=== PATIENT | male | born 1945 | race Caucasian/White ===

== ENCOUNTER 2018-04-15 16:28 | Inpatient (IN) | payer MEDICARE ==
[~2018-04-15] VITALS: Ht 170.2 cm; Wt 118.8 kg
[~2018-04-15 16:28] MED LIST: AMARYL4 MG PO; AMLODIPINE BESYL5 MG PO; ANDROGEL2.5 GM TP; ASA81 MG PO; CRESTOR5 MG PO; GLIMEPIRIDE PO; K DUR10 MEQ PO; KETOROLAC TROME10 MG PO; LANTUS100 UNIT/2 SQ; LOSARTAN-HCTZ1 EAC1; LOSARTAN-HCTZ1 EAC3 PO; LOVENOX30 MG/0.3 SC; METOPROLOL SUCC25 MG PO; PRILOSEC OTC20 MG PO; PRILOSEC40 MG PO; ULTRACET TABLE1 EACH PO; ULTRAM50 MG PO; Z.0.LIPITOR20 MG PO; Z.0.PRILOSEC20 MG PO; Z.0.VICTOZA 2-0.6 MG SQ; Z.1.METFORMIN HCL100 PO
[2018-04-15] MEDS ORDERED: IPRATROPIUM BROMIDE 0.02% 2.5 ML NEB NEB STA (16:36)
[2018-04-15] MEDS ORDERED: ALBUTEROL SULF 0.083% NEB SOLN 3 ML NEB NEB STA (16:36)
[2018-04-15] MEDS ORDERED: AZITHROMYCIN 500MG/NS 250 ML 250 ML IV STA (16:36)
[2018-04-15] MEDS ORDERED: CEFTRIAXONE SOD 1 GM VIAL IV ONE (16:45)
[2018-04-15 16:53] LABS: BASOPHILS % 0.3 % (0.0-1.0); EOSINOPHILS % 0.3 % (0.0-6.0); HEMATOCRIT 37.8 % (38.2-49.6); HEMOGLOBIN 12.9 g/dL (14.0-18.0); LYMPHOCYTES % 8.4 % (18.0-39.1); MEAN CORPUSCULAR HEMOGLOBIN 31.9 pg (28-32); MEAN CORPUSCULAR HGB CONC 34.1 g/dL (31-35); MEAN CORPUSCULAR VOLUME 93.3 fL (81-99); MONOCYTES # (AUTO) 0.8 (0.2-0.8); MONOCYTES % 6.9 % (4.4-11.3); NEUTROPHILS # (AUTO) 9.6 (2.1-6.9); NEUTROPHILS % 81.8 % (38.7-80.0); PLATELET COUNT 112 x10e3/uL (140-360); RED BLOOD COUNT 4.05 x10e6/uL (4.3-5.7); RED CELL DISTRIBUTION WIDTH 13.3 % (11.7-14.4)
[2018-04-15] MEDS ORDERED: ACETAMINOPHEN/CODEINE 300MG - 30MG TAB PO ONE (17:00)
[2018-04-15 17:02] LABS: INR 1.36; PROTHROMBIN TIME 15.8 seconds (11.9-14.5)
[2018-04-15 17:03] LABS: PARTIAL THROMBOPLASTIN TIME 41.5 seconds (23.8-35.5)
[2018-04-15 17:09] LABS: ALBUMIN 3.2 g/dL (3.5-5.0); ALBUMIN/GLOBULIN RATIO 0.7 (0.8-2.0); ANION GAP 19.7 mmol/L (8-16); CALCIUM 9.7 mg/dL (8.4-10.2); CREATININE, SERUM 1.76 mg/dL (0.72-1.25); POTASSIUM 3.7 mmol/L (3.5-5.1)
[2018-04-15 17:16] LABS: CREATINE KINASE MB 2.5 ng/mL (0-5.0)
[2018-04-15] MEDS ORDERED: JANUMET XR 50-1 EAC1 (17:47)
[2018-04-15] MEDS ORDERED: GLIMEPIRIDE4 MG (17:47)
[2018-04-15] MEDS ORDERED: OMEPRAZOLE40 MG (17:47)
[2018-04-15] MEDS ORDERED: NITROGLYCERIN0.4 MG (17:47)
--- NOTE | 2018-04-15 18:24 | Diagnostic Imaging Report ---
PROCEDURE: Frontal and lateral views of the chest. COMPARISON: Chest radiograph 04/29/2016 INDICATIONS: COUGH PNEUMONIA FINDINGS: Lines/tubes: None. Lungs: The lungs are well inflated. Patchy bilateral airspace opacities, most prominent in the left lower lobe. Pleura: There is no pleural effusion or pneumothorax. Heart and mediastinum: Aortic calcifications. The heart and the mediastinum are normal. Bones: No acute bony abnormality. Median sternotomy wires. IMPRESSION: Findings concerning for multifocal pneumonia. Dictated by: Boni Gupta M.D. on 04/15/2018 at 18:30 Electronically approved by: Boni Gupta M.D. on 04/15/2018 at 18:30
[2018-04-15] MEDS ORDERED: CEFTRIAXONE SOD 1 GM VIAL IV SCH (18:30)
[2018-04-15] MEDS ORDERED: AZITHROMYCIN 500MG/NS 250 ML 250 ML IV SCH (18:30)
[2018-04-15 18:36] LABS: LYMPHOCYTES % (MANUAL) 7 % (19-48); MONOCYTES % (MANUAL) 11 % (3.4-9.0); NEUTROPHILS % (MANUAL) 81 % (40-74); PLATELET ESTIMATE SLIGHTLY DECREASED; PLATELET MORPHOLOGY COMMENT NORMAL; RBC MORPHOLOGY COMMENT NORMAL
[2018-04-15] MEDS: GUAIFENESIN 200 MG/10 ML UDC PO PRN (22:30)
[2018-04-16] VITALS (8 sets, daily range): BP systolic 97–131; BP diastolic 43–69
[2018-04-16] MEDS ORDERED: NORCO 10-325 T1 EACH (07:50)
[2018-04-16] MEDS: GUAIFENESIN 200 MG/10 ML UDC PO PRN (08:02)
[2018-04-16] MEDS: ASPIRIN 81 MG ENTERIC COATED PO SCH (08:39)
[2018-04-16] MEDS: LOSARTAN POTASSIUM 100 MG TAB PO SCH (08:40)
[2018-04-16] MEDS: PANTOPRAZOLE SOD 40 MG TABEC PO SCH (08:40)
[2018-04-16] MEDS: AMLODIPINE BESYLATE 5 MG TAB PO SCH (09:00)
[2018-04-16] MEDS ORDERED: LEVALBUTEROL HCL SOLN NEBU 1.25 MG/3 ML NEB INH PRN (09:00)
[2018-04-16] MEDS ORDERED: SITAGLIPTIN 100 MG TAB PO SCH (09:00)
[2018-04-16] MEDS: METOPROLOL SUCCINATE 25 MG TAB XL PO SCH ×2 (09:00→16:32)
[2018-04-16] MEDS ORDERED: METHYLPREDNISOLONE SOD SUCC 40 MG/ML VIAL IV SCH ×2 (09:00→21:00)
[2018-04-16] MEDS ORDERED: METOPROLOL SUCCINATE 25 MG TAB XL PO SCH (09:00)
[2018-04-16] MEDS ORDERED: DEXTROSE 50% SYRINGE 50 ML IV PRN (09:00)
[2018-04-16] MEDS ORDERED: BENZONATATE 100 MG CAP PO PRN (09:00)
--- NOTE | 2018-04-16 09:41 | History and Physical ---
PCP: Dr. Kelly Baker CHIEF COMPLAINT: Multifocal pneumonia. HISTORY: A 72-year-old male has been having coughing and increasing shortness of breath for the past week. He failed outpatient treatment. He came in to see Dr. Baker and subsequently placed in the hospital for treatment. He did have a fever. The patient is also having wheezing. He is an ex-smoker. The patient is hypoxic. Oxygen has been given. The patient is admitted for further treatment. PAST MEDICAL HISTORY: Coronary disease with previous bypass surgery times 2 vessels in 1989 and then another 2 vessels in 2000, right shoulder repair, osteoarthritis, obesity, diabetes, type 2, hypertension, and dyslipidemia. PAST SURGICAL HISTORY: As above. SOCIAL HISTORY: The patient is an ex-smoker. He does not drink alcohol. No recreational drugs. ALLERGIES: NO KNOWN ALLERGIES. HOME MEDICATIONS: Norvasc, aspirin, Amaryl, Casper, losartan, hydrochlorothiazide, metoprolol succinate, nitroglycerin, omeprazole, Janumet, testosterone gel. REVIEW OF SYSTEMS: Cough, fever, shortness of breath, wheezing, and hypoxia. PHYSICAL EXAMINATION VITAL SIGNS: Temperature is 100.9, blood pressure 115/69, pulse rate is 115, pulse ox is 75% on room air. GENERAL: The patient is not in acute distress. He is awake. HEENT: Normocephalic, atraumatic and anicteric. NECK: Supple grossly. PULMONARY: Bilateral coarses and rhonchi with diminished breath sounds bilaterally. CARDIOVASCULAR: S1 and S2. Tachycardia. ABDOMEN: Soft and morbidly obese. EXTREMITIES: No cyanosis or edema. NEUROLOGIC: No gross focal deficit. LABORATORY: WBC is 12, hemoglobin 13, hematocrit 38, and platelets 112,000. Chemistry: Sodium 137, potassium 3.7, chloride 100, bicarb 21, BUN 41, creatinine 1.7, glucose is 89. Cardiac enzymes unremarkable. Coagulation is INR is 1.36. Chest x-ray showed multifocal pneumonia. IMPRESSION 1. Sepsis with fever. 2. Multifocal pneumonia. 3. Hypoxia. 4. Leukocytosis. 5. Multifocal pneumonia. 6. Possible acute exacerbation of chronic obstructive pulmonary disease. 7. Hypoxia. 8. Diabetes, type 2. 9. Hypertension. PLAN: Continue with IV antibiotics of azithromycin and Zosyn. Consultation with Dr. Avalos, the patient's radio interference expert. DVT prophylaxis. Home medications. Insulin sliding scale coverage. Steroids for the wheezing. Resume some home medications. Watch blood sugar. Antiemetic and antitussive medications. Will monitor the patient closely. Job#: [id number] ZHANNA
[2018-04-16] MEDS: GLIPIZIDE 5 MG TAB ER PO SCH (10:11)
[2018-04-16] MEDS: BENZONATATE 100 MG CAP PO SCH ×3 (10:11→21:00)
[2018-04-16] MEDS: PIPER-TAZ 3.375 GM 50 ML IV SCH ×4 (10:11→23:47)
[2018-04-16] MEDS: INSULIN LISPRO 100 UNIT/1 ML 3ML VIAL SQ SCH ×3 (11:30→20:30)
[2018-04-16] MEDS: ALBUTEROL/IPRATROPIUM 3 ML NEB NEB SCH ×4 (11:55→22:50)
[2018-04-16] MEDS ORDERED: HYDROCODONE/APAP 10MG-325MG TAB PO PRN (12:00)
[2018-04-16] MEDS ORDERED: HYDROCODONE/APAP 10MG-325MG TAB PO SCH (12:00)
[2018-04-16] MEDS ORDERED: ALBUTEROL/IPRATROPIUM 3 ML NEB NEB SCH (13:00)
--- NOTE | 2018-04-16 14:18 | Diagnostic Imaging Report ---
PROCEDURE: CT CHEST WITHOUT CONTRAST CT scan of the chest WITHOUT intravenous contrast, using standard protocol. TECHNIQUE: The chest was scanned utilizing a multidetector helical scanner from the apex to the level of the adrenal glands. No IV contrast was administered per physician's request.). Coronal and sagittal multiplanar reformations were obtained. COMPARISON: [facility], CT, CTA ABDOMEN, 08/11/2012, 15:52. [facility], DX, CHEST 2 VIEWS, 04/15/2018, 17:19. [facility], CT, CTA CHEST, 08/11/2012, 15:52. INDICATIONS: SOB, PNEUMONIA 1 WEEK FINDINGS: Lines/tubes: None. Lungs and Airways: Patchy groundglass opacities in the lateral left upper lobe (series 3, image 24), superior segment of the left lower lobe (series 3, image 36), posterior left lower lobe (series 3, image 41), superior segment of the right lower lobe (series 3, image 38), and posterior right lower lobe (series 3, image 47). The opacities in the lower lobes are associated with mild bronchiectasis. 7-8mm subpleural nodular density is somewhat wedge-shaped, and likely reflects focal atelectasis (coronal image 63 and series 3, image 43). No pulmonary nodules, masses, or consolidation. Airways are clear, without endobronchial lesions. Calcified granuloma in the anterior right upper lobe (series 3, image 15), disease. Pleura: No effusion, or pneumothorax. Calcified pleural plaques in the posterior and posteromedial left lung (series 2, images 30 and 31). Heart and mediastinum: Thyroid is unremarkable. Heart size is normal. No pericardial effusion. Atherosclerotic calcification of the coronary arteries and thoracic aorta. Aorta is non-aneurysmal. Main pulmonary artery is normal in caliber, measuring approximately 2.5 cm. Lymph nodes: No mediastinal or axillary adenopathy. Difficult to assess for hilar adenopathy given the lack of intravenous contrast. Abdomen: Limited nonenhanced views of the upper abdomen show no abnormality within the visualized pancreas, or adrenal glands. Subtle nodularity of the hepatic contour. Stable splenomegaly, which measures approximately 16.4 cm in AP diameter. Diffuse hepatic steatosis. Bones: No acute bony abnormalities. No aggressive lytic lesions. Degenerative disc changes in the thoracic spine. Midline sternotomy wires. Mild bilateral gynecomastia. IMPRESSION: 1. Findings in bilateral lungs may represent multifocal pneumonia, in the appropriate clinical setting. However, the presence of bronchiectatic changes associated to the groundglass opacities in bilateral lower lobes may reflect a component of fibrosis/interstitial lung disease. Recommend evaluation with CT chest with interstitial lung disease protocol in 6-8 weeks after completion of treatment. 2. Calcified pleural plaques, consistent with prior asbestos exposure. 3. Subtle nodularity of the hepatic contour suggestive of cirrhosis. Diffuse hepatic steatosis. 4. Stable splenomegaly. Enzo Masters M.D. Dictated by: Enzo Masters M.D. on 04/16/2018 at 14:23 Electronically approved by: Enzo Masters M.D. on 04/16/2018 at 14:23
--- NOTE | 2018-04-16 14:42 | Consultation ---
DATE OF CONSULTATION: April 16, 2018 PULMONARY CONSULTATION REQUESTING PHYSICIAN: Dr. Homer Mcfadden REASON FOR CONSULTATION: Pneumonia and sleep apnea. HISTORY OF PRESENT ILLNESS: Mr. Watters is a 72-year-old man with history of hypertension, diabetes, coronary artery disease status post CABG, obstructive sleep apnea, previous history of tobacco abuse, who presented to the hospital with complaint of fever, shortness of breath and cough. He states that his symptoms began one week ago and have been gradually worsening. He did not have fever initially but developed fever a few days ago. The cough was originally nonproductive but is now productive of dark yellow sputum. He is having chills as well as shortness of breath and wheezing. He denies any leg swelling, denies any chest pain. He does not use any inhalers at home on a regular basis but had been using his 's Breo recently without improvement. He sees my colleague, Dr. Avalos, for obstructive sleep apnea and uses CPAP with nasal mask at home. He reports using the CPAP every night and tolerating it very well. He does not use oxygen at home. He was seen in the emergency department here where he was found to be borderline febrile as well as tachypneic and hypoxic. He was placed on nasal cannula originally up to 10 liters but is now at 6 liters. He was given a dose of ceftriaxone and started on Zosyn and Azithromycin for treatment of pneumonia. The patient denies any hospitalizations for many years with the last being in the when he had knee surgery. He denies any previous episodes of severe pneumonia. REVIEW OF SYSTEMS: Review of systems positive for cough, sputum production, shortness of breath, fever, chills, decreased appetite. Denies rashes, bruises. Denies leg swelling. Denies abdominal pain, nausea or vomiting. Denies chest pain. Denies headaches. Denies weight loss. Denies numbness or tingling. Otherwise a 12-point review of systems was conducted and was found to be negative. PAST MEDICAL HISTORY 1. Hypertension. 2. Diabetes on oral medications. 3. Obstructive sleep apnea. 4. Coronary artery disease. 5. Gastroesophageal reflux. PAST SURGICAL HISTORY 1. Carotid endarterectomy. 2. Lumbar spine surgery. 3. Knee arthroscopy. 4. Coronary artery bypass surgery. SOCIAL HISTORY: He reports history of smoking in the distant past. Quit in the . He smoked up to 3 packs of cigarettes daily for about 24 years. FAMILY HISTORY: There is history of heart disease in his father. Diabetes in his grandmother. Denies family history of lung disease. ALLERGIES: NO KNOWN DRUG ALLERGIES. MEDICATIONS: Current medications include albuterol-ipratropium, Tessalon, glipizide, Solu-Medrol, pantoprazole, aspirin, guaifenesin, Zosyn, metoprolol, losartan, amlodipine, Lovenox, Januvia, azithromycin. PHYSICAL EXAMINATION VITAL SIGNS: Temperature 100.0 degrees Fahrenheit, heart rate 70, respiratory rate 20, oxygen saturation 98% on 6 liters nasal cannula. GENERAL: The patient is lying in bed, appears comfortable, not in acute distress. He is coughing occasionally. EYES: Sclerae anicteric. Conjunctiva pink. ENT: No oral lesions. Oral mucosa is moist. NECK: Supple. No cervical lymphadenopathy. No JVD. CHEST: He has rhonchi heard bilaterally with slight expiratory wheezing. Work of breathing is normal. HEART: Regular rate and rhythm. S1, S2. No murmurs. ABDOMEN: Soft, protuberant. Nontender to palpation. Bowel sounds normoactive. EXTREMITIES: No edema, no cyanosis, no clubbing. SKIN: No rashes, no bruises. NEUROLOGIC: Pupils equally round and reactive to light. No facial droop. No nystagmus. LABORATORY STUDIES: Sodium is 137, potassium 3.7, chloride 100, bicarbonate 21, BUN 41, creatinine 1.76. Bilirubin 1.8, glucose 89, AST 33, ALT 28, alkaline phosphatase 113, CK 271, CK-MB 2.5. Troponin I is 0.29. Albumin 3.2. Globulin 4.6. White count 11.6, hemoglobin 12.9, platelets 112. PT 15.8, INR 1.36, PTT 41.5. IMAGING: He has a chest x-ray showing patchy opacities bilaterally, most in the left lower lung field. A sputum gram stain shows moderate white blood cells, few gram positive cocci and pairs and chains and rare gram negative bacilli. IMPRESSION: Mr. Watters is a 72-year-old man with history of hypertension, diabetes, obstructive sleep apnea, coronary artery disease, morbid obesity, gastroesophageal reflux who presented to the hospital with community-acquired pneumonia with acute hypoxemic respiratory failure. He has acute kidney injury versus chronic kidney disease as I do not have any previous creatinine. He has a mild anion gap metabolic acidosis and mild thrombocytopenia. His oxygenation appears to be stable on the relatively high amount of oxygen by nasal cannula. PLAN 1. The patient is receiving Zosyn and azithromycin empirically for pneumonia. Blood cultures and sputum culture have been sent and depending on the results of cultures, we can look at de-escalating his antibiotics over the next 1 to 2 days. He comes from the community so his risk of healthcare-associated organisms is on the low side. I will ask for streptococcal urine antigen to be sent as well as Legionella urine antigen. 2. We will continue with oxygen by nasal cannula and wean as possible to maintain oxygen saturation greater than 89%. 3. He has some mild wheezing on examination that may be related to pneumonia and denies previous history of COPD. Some of this may be related to tracheobronchitis as well. Will continue with bronchodilators and I think that we can decrease the dose of his IV steroids significantly so as not to cause severe hyperglycemia in a patient with diabetes. 4. We will continue with antitussives and expectorants. 5. He uses a CPAP at night and we will continue with CPAP in the hospital here. I spoke with respiratory therapy and they will change the tubing to one that will support additional oxygen that can be used with the CPAP at night in the hospital. 6. Will continue with Lovenox for DVT prophylaxis. I ideally with his body weight we would use twice daily dosing but he has impaired renal function and the once daily dosing is appropriate. Thank you very much for the consultation. We will continue to follow closely with you and please feel free to call if any questions. Job#: [id number] RICHARD
[2018-04-16] MEDS: SITAGLIPTIN 100 MG TAB PO SCH (16:30)
[2018-04-16] MEDS: HYDROCODONE/APAP 10MG-325MG TAB PO PRN (16:31)
[2018-04-16] MEDS: GUAIFENESIN 600 MG TAB PO SCH (16:31)
[2018-04-16] MEDS: ENOXAPARIN SOD INJ 40 MG/0.4 ML SYR SC SCH (16:56)
[2018-04-16] MEDS ORDERED: METFORMIN HCL 500 MG TAB PO SCH (17:00)
[2018-04-16] MEDS: AZITHROMYCIN 500MG/NS 250 ML 250 ML IV SCH (17:45)
[2018-04-16] MEDS ORDERED: CEFTRIAXONE SOD 1 GM VIAL IV SCH (18:30)
[2018-04-16] MEDS ORDERED: INSULIN REGULAR, HUMAN 100 UNIT/1 ML 3ML VIAL SQ ONE (22:15)
[2018-04-16] MEDS ORDERED: INSULIN DETEMIR 100 UNIT/ML PEN SQ ONE (22:45)
[2018-04-17] VITALS (7 sets, daily range): BP systolic 102–131; BP diastolic 57–73
[2018-04-17 04:34] LABS: BASOPHILS % 0.2 % (0.0-1.0); HEMATOCRIT 33.2 % (38.2-49.6); HEMOGLOBIN 11.4 g/dL (14.0-18.0); LYMPHOCYTES # (AUTO) 0.5 (1.0-3.2); LYMPHOCYTES % 8.5 % (18.0-39.1); MEAN CORPUSCULAR HEMOGLOBIN 32.1 pg (28-32); MEAN CORPUSCULAR HGB CONC 34.3 g/dL (31-35); MEAN CORPUSCULAR VOLUME 93.5 fL (81-99); MONOCYTES # (AUTO) 0.4 (0.2-0.8); MONOCYTES % 6.7 % (4.4-11.3); NEUTROPHILS # (AUTO) 4.5 (2.1-6.9); NEUTROPHILS % 83.9 % (38.7-80.0); PLATELET COUNT 87 x10e3/uL (140-360); RED BLOOD COUNT 3.55 x10e6/uL (4.3-5.7)
[2018-04-17] MEDS ORDERED: SODIUM CHLORIDE 0.9% 250ML 250 ML ONE (04:34)
[2018-04-17 04:46] LABS: ANION GAP 17.7 mmol/L (8-16); CREATININE, SERUM 1.5 mg/dL (0.72-1.25); POTASSIUM 3.7 mmol/L (3.5-5.1)
[2018-04-17] MEDS: PIPER-TAZ 3.375 GM 50 ML IV SCH ×4 (05:24→23:56)
[2018-04-17] MEDS ORDERED: INSULIN REGULAR, HUMAN 100 UNIT/1 ML 3ML VIAL SQ ONE (05:45)
[2018-04-17] MEDS: ALBUTEROL/IPRATROPIUM 3 ML NEB NEB SCH ×5 (06:00→23:00)
[2018-04-17] MEDS: PANTOPRAZOLE SOD 40 MG TABEC PO SCH (07:30)
[2018-04-17] MEDS ORDERED: METFORMIN HCL 500 MG TAB PO SCH (07:30)
[2018-04-17] MEDS: INSULIN LISPRO 100 UNIT/1 ML 3ML VIAL SQ SCH ×4 (07:30→20:34)
[2018-04-17] MEDS: GLIPIZIDE 5 MG TAB ER PO SCH (08:10)
[2018-04-17] MEDS: BENZONATATE 100 MG CAP PO SCH ×3 (08:57→20:34)
[2018-04-17] MEDS: AMLODIPINE BESYLATE 5 MG TAB PO SCH (08:57)
[2018-04-17] MEDS: METOPROLOL SUCCINATE 25 MG TAB XL PO SCH ×2 (08:57→17:00)
[2018-04-17] MEDS: GUAIFENESIN 600 MG TAB PO SCH ×2 (08:57→17:03)
[2018-04-17] MEDS: ASPIRIN 81 MG ENTERIC COATED PO SCH (08:57)
[2018-04-17] MEDS: LOSARTAN POTASSIUM 100 MG TAB PO SCH (08:57)
[2018-04-17] MEDS ORDERED: METHYLPREDNISOLONE SOD SUCC 40 MG/ML VIAL IV SCH (09:00)
[2018-04-17 15:36] LABS: BILIRUBIN,URINE NEGATIVE (NEGATIVE); CLARITY,URINE SL CLOUDY (CLEAR); COLOR,URINE YELLOW (YELLOW); KETONES,URINE NEGATIVE (NEGATIVE); LEUKOCYTE ESTERASE ,URINE NEGATIVE (NEGATIVE); NITRITE,URINE NEGATIVE (NEGATIVE); PROTEIN,URINE DIPSTICK NEGATIVE (NEGATIVE); URINE UROBILINOGEN 0.2 mg/dL (0.2 - 1)
[2018-04-17] MEDS: GUAIFENESIN/CODEINE 10 ML CUP PO PRN (15:42)
[2018-04-17 15:56] LABS: EPITHELIAL CELLS,URINE RARE /LPF; URIC ACID CRYSTALS,URINE MANY (FEW)
--- NOTE | 2018-04-17 16:08 | Progress Note ---
DATE: April 17, 2018 I am covering for Dr. Mcfadden. SUBJECTIVE: Patient continues to have some sputum production, cough and congestion. He has been afebrile. His glucose levels have been very elevated, likely due to the steroids, which I am now discontinuing. He is not drinking enough fluids, which I encouraged oral hydration. OBJECTIVE VITAL SIGNS: Temperature 97.4, pulse 80, respiratory rate 19, blood pressure 107/58, pulse ox 95% and he is on 5 liters nasal cannula. LAB FINDINGS: White count 5.4, hemoglobin 11.4, hematocrit 33.2, and platelets 87. Coagulation: PT 15.8, INR 1.3, PTT 41. Chemistry: Sodium 133, potassium 3.7, chloride 98, bicarb 21, anion gap 17, BUN 36, creatinine 1.5. Calcium is 9.0. Troponins were negative x3. MICROBIOLOGY: Blood cultures no growth to date. Sputum cultures no growth to date. IMAGING: Chest x-ray shows findings consistent with multifocal pneumonia. CT chest: Findings in bilateral lungs may represent multifocal pneumonia. He also needs repeat CT at 6 to 8 weeks. There is some subtle nodularity surrounding the liver, likely to be from underlying cirrhosis. PHYSICAL EXAMINATION GENERAL: Not in acute distress. Alert and oriented x3. Cooperative on examination. HEENT: Head: Normocephalic, atraumatic. Eyes: Pupils are equal, round, and reactive to light bilaterally. The extraocular movements are intact bilaterally. NECK: Supple with a good range of motion. THROAT: No evidence of any erythema or exudate in the posterior pharynx. Has poor dentition. PULMONARY: Clear to auscultation bilaterally. No wheezing, no rales, no rhonchi, no crackles appreciated. CARDIOVASCULAR: Positive S1, S2. No murmurs, rubs or gallops appreciated. ABDOMEN: Soft, nondistended and nontender to palpation. Bowel sounds present. MUSCULOSKELETAL: Strength is 5/5 throughout. No evidence of any musculoskeletal deficit on examination. No weakness appreciated. NEUROLOGICAL: Cranial nerves II through XII are grossly intact. No evidence of any neurological deficits on exam. SKIN: Intact. Warm to touch. Good capillary refill. PSYCHIATRIC: Normal affect and mood. EXTREMITIES: No edema. Good range of motion throughout. IMPRESSION 1. Sepsis with underlying fevers secondary to community-acquired pneumonia, multifocal pneumonia. 2. Leukocytosis secondary to #1. 3. Hypoxia secondary to community-acquired pneumonia. 4. Type-2 diabetes. 5. Hypertension. PLAN: At this time, pulmonary has been consulted. We will continue with IV azithromycin and Zosyn. We will discontinue IV steroids as the patient sounds very well on examination. We are going to add Robitussin with codeine for cough as well as Tessalon Perles. The patient continues to be on insulin sliding scale, which we will continue to monitor very closely. His blood pressure is stable. He refuses his losartan. Platelets are 87. We are going to put him on SCDs and avoid anticoagulation at this time. Otherwise, we will continue to follow. Job#: [id number]
[2018-04-17] MEDS: SITAGLIPTIN 100 MG TAB PO SCH (17:03)
[2018-04-17] MEDS: ENOXAPARIN SOD INJ 40 MG/0.4 ML SYR SC SCH (17:03)
[2018-04-17 17:15] LABS: BASOPHILS % 0.2 % (0.0-1.0); HEMATOCRIT 35.6 % (38.2-49.6); HEMOGLOBIN 12.1 g/dL (14.0-18.0); LYMPHOCYTES # (AUTO) 0.5 (1.0-3.2); LYMPHOCYTES % 4.8 % (18.0-39.1); MEAN CORPUSCULAR HEMOGLOBIN 31.8 pg (28-32); MEAN CORPUSCULAR VOLUME 93.4 fL (81-99); MONOCYTES # (AUTO) 0.5 (0.2-0.8); MONOCYTES % 5.4 % (4.4-11.3); NEUTROPHILS # (AUTO) 8.3 (2.1-6.9); NEUTROPHILS % 88.1 % (38.7-80.0); PLATELET COUNT 113 x10e3/uL (140-360); RED BLOOD COUNT 3.81 x10e6/uL (4.3-5.7)
[2018-04-17 17:32] LABS: ANION GAP 17.9 mmol/L (8-16); CALCIUM 9.2 mg/dL (8.4-10.2); CREATININE, SERUM 1.37 mg/dL (0.72-1.25); POTASSIUM 3.9 mmol/L (3.5-5.1)
[2018-04-17] MEDS: AZITHROMYCIN 500MG/NS 250 ML 250 ML IV SCH (18:41)
[2018-04-17] MEDS: INSULIN DETEMIR 100 UNIT/ML PEN SQ SCH (20:34)
[2018-04-18] VITALS (7 sets, daily range): BP systolic 101–124; BP diastolic 59–67
[2018-04-18] MEDS: ALBUTEROL/IPRATROPIUM 3 ML NEB NEB SCH ×6 (03:15→22:20)
[2018-04-18] MEDS: PIPER-TAZ 3.375 GM 50 ML IV SCH ×4 (05:24→23:29)
[2018-04-18] MEDS: INSULIN LISPRO 100 UNIT/1 ML 3ML VIAL SQ SCH ×4 (07:30→20:52)
[2018-04-18] MEDS: PANTOPRAZOLE SOD 40 MG TABEC PO SCH (07:51)
[2018-04-18] MEDS: GLIPIZIDE 5 MG TAB ER PO SCH (07:51)
[2018-04-18] MEDS: METOPROLOL SUCCINATE 25 MG TAB XL PO SCH ×2 (09:00→16:55)
[2018-04-18] MEDS: LOSARTAN POTASSIUM 100 MG TAB PO SCH (09:00)
[2018-04-18] MEDS: AMLODIPINE BESYLATE 5 MG TAB PO SCH (09:00)
[2018-04-18] MEDS: GUAIFENESIN 200 MG/10 ML UDC PO PRN (09:18)
[2018-04-18] MEDS: GUAIFENESIN 600 MG TAB PO SCH ×2 (09:21→16:55)
[2018-04-18] MEDS: BENZONATATE 100 MG CAP PO SCH ×3 (09:21→20:54)
[2018-04-18] MEDS: ASPIRIN 81 MG ENTERIC COATED PO SCH (09:21)
[2018-04-18] MEDS: GUAIFENESIN/CODEINE 10 ML CUP PO PRN ×2 (15:03→19:38)
[2018-04-18] MEDS: SITAGLIPTIN 100 MG TAB PO SCH (16:55)
[2018-04-18] MEDS: ENOXAPARIN SOD INJ 40 MG/0.4 ML SYR SC SCH (16:55)
[2018-04-18] MEDS: AZITHROMYCIN 500MG/NS 250 ML 250 ML IV SCH (18:30)
[2018-04-18] MEDS: INSULIN DETEMIR 100 UNIT/ML PEN SQ SCH (20:52)
[2018-04-18] MEDS: HYDROCODONE/APAP 10MG-325MG TAB PO PRN (20:58)
--- NOTE | 2018-04-18 21:26 | Progress Note ---
DATE: April 18, 2018 I am covering for Dr. Mcfadden. SUBJECTIVE: Patient is doing much better today. His cough has improved. He still has a productive cough though. His low potassium with codeine improved tremendously. OBJECTIVE VITAL SIGNS: Temperature is 96, pulse 83, respiratory rate is 22, blood pressure is 119/61, and his pulse ox is 94%. He is still on 6 L nasal cannula. LABORATORY FINDINGS: White count is 9.4, hemoglobin is 12, hematocrit is 35.6, and platelets are 113. Chemistries are normal. PHYSICAL EXAM GENERAL: Not in acute distress. Alert and oriented x3, cooperative on examination. HEENT: Head is normocephalic, atraumatic. Eyes: Pupils are equal, round and reactive to light bilaterally. Extraocular movements intact bilaterally. NECK: Supple. Good range of motion. Throat; no evidence of any erythema or exudates in the posterior pharynx. Has poor dentition. PULMONARY: Clear to auscultation bilaterally. No wheezes, no rales, no rhonchi, no crackles appreciated. CARDIOVASCULAR: Positive S1 and S2. No murmurs, rubs, or gallops appreciated. ABDOMEN: Soft, nondistended, and nontender to palpation. Bowel sounds present. MUSCULOSKELETAL: Strength is 5/5 throughout. No evidence of any muscular deficit on exam. SKIN: Intact. Warm to touch. Good cap refill. PSYCHIATRIC: Normal affect and mood. EXTREMITIES: No edema. Good range of motion throughout. IMPRESSION 1. Sepsis with underlying fever secondary to multifocal community-acquired pneumonia. 2. Leukocytosis secondary to sepsis. 3. Hypoxia secondary to community-acquired pneumonia. 4. Type 2 diabetes. 4. Hypertension. PLAN: At this time, continue with IV antibiotics. Blood cultures were negative. Steroids were discontinued and his glucose blood levels are much improved. We will continue her low potassium with codeine as well as Tessalon Perles. I did put in LTAC referral as the patient will likely need to be on oxygen for significant period of time and he is able to be weaned off. He is not on any home O2. We will continue with IV antibiotics as per his community-acquired pneumonia and we will continue to follow. Job#: [id number] RTY
[2018-04-19] VITALS (7 sets, daily range): BP systolic 102–157; BP diastolic 46–66
[2018-04-19] MEDS: ALBUTEROL/IPRATROPIUM 3 ML NEB NEB SCH ×6 (02:00→23:00)
[2018-04-19] MEDS: PIPER-TAZ 3.375 GM 50 ML IV SCH ×4 (05:30→23:55)
[2018-04-19] MEDS: GUAIFENESIN/CODEINE 10 ML CUP PO PRN ×2 (07:24→22:01)
[2018-04-19] MEDS: INSULIN LISPRO 100 UNIT/1 ML 3ML VIAL SQ SCH ×4 (07:30→20:43)
[2018-04-19] MEDS: ASPIRIN 81 MG ENTERIC COATED PO SCH (07:49)
[2018-04-19] MEDS: PANTOPRAZOLE SOD 40 MG TABEC PO SCH (07:49)
[2018-04-19] MEDS: LOSARTAN POTASSIUM 100 MG TAB PO SCH (07:49)
[2018-04-19] MEDS: GLIPIZIDE 5 MG TAB ER PO SCH (07:49)
[2018-04-19] MEDS: BENZONATATE 100 MG CAP PO SCH ×3 (07:50→20:51)
[2018-04-19] MEDS: AMLODIPINE BESYLATE 5 MG TAB PO SCH (07:50)
[2018-04-19] MEDS: GUAIFENESIN 600 MG TAB PO SCH ×2 (07:50→16:59)
[2018-04-19] MEDS: METOPROLOL SUCCINATE 25 MG TAB XL PO SCH ×2 (07:50→17:00)
[2018-04-19] MEDS: SITAGLIPTIN 100 MG TAB PO SCH (16:59)
--- NOTE | 2018-04-19 19:14 | Progress Note ---
DATE: Covering for Dr. Mcfadden. SUBJECTIVE: Patient is doing well today with no complaints. He is still on oxygen. He has been afebrile, but no other issues. OBJECTIVE VITAL SIGNS: Temperature is 99.2, pulse 102, respiratory rate is 21, blood pressure is 102/65, pulse ox 93% on 5 L of oxygen. MICROBIOLOGY: Blood culture is negative. Sputum culture is negative. Urine culture is negative. IMAGING STUDIES: None. PHYSICAL EXAMINATION GENERAL: Not in acute distress. Alert and oriented x3, cooperative on examination. HEENT: Head is normocephalic, atraumatic. Eyes; pupils are equal, round, and reactive to light bilaterally. Extraocular movements intact bilaterally. NECK: Supple. Good range of motion throughout. No evidence of any erythema or exudate in the posterior pharynx. Has poor dentition. PULMONARY: Clear to auscultation bilaterally. He still has some expiratory wheezing appreciated. Fine crackles. No rales, no rhonchi. CARDIOVASCULAR: Positive S1, S2. No murmurs, rubs, or gallops appreciated. ABDOMEN: Soft, nondistended, and nontender on palpation. Bowel sounds present. MUSCULOSKELETAL: Strength is 5/5 throughout. No evidence of any muscle deficit on examination. No weakness appreciated. NEUROLOGICAL: Cranial nerves II-XII are grossly intact. No evidence of any neurological deficits on exam. SKIN: Intact. Warm to touch. Good cap refill. PSYCHIATRIC: Normal affect and mood. EXTREMITIES: No edema. Good range of motion throughout. IMPRESSION 1. Sepsis due to underlying fever secondary to multifocal community acquired pneumonia. 2. Leukocytosis secondary to sepsis. 3. Hypoxemia secondary to community acquired pneumonia. 4. Type 2 diabetes. 5. Hypertension. PLAN: At this time, patient still requires oxygen at 5 L. We will try to wean to off. Continue with IV antibiotics. Blood cultures were negative. Urine culture is negative. Sputum culture has been negative. I did put an LTAC referral as the patient will likely need to be on oxygen there. He is still requiring significant amount of oxygen here at the hospital. We will continue with Robitussin with codeine as well as Tessalon Perles. We are going to get a.m. labs as well. Pulmonary has been consulted and they are following as well. Job#: [id number] SUB
[2018-04-19] MEDS: INSULIN DETEMIR 100 UNIT/ML PEN SQ SCH (20:43)
[2018-04-19] MEDS: HYDROCODONE/APAP 10MG-325MG TAB PO PRN (22:01)
[2018-04-20] VITALS (8 sets, daily range): BP systolic 105–121; BP diastolic 52–58
[2018-04-20] MEDS: ALBUTEROL/IPRATROPIUM 3 ML NEB NEB SCH ×6 (02:00→22:45)
[2018-04-20 04:43] LABS: BASOPHILS % 0.9 % (0.0-1.0); EOSINOPHILS # (AUTO) 0.1 (0.0-0.4); EOSINOPHILS % 2.2 % (0.0-6.0); HEMATOCRIT 33.1 % (38.2-49.6); HEMOGLOBIN 10.9 g/dL (14.0-18.0); LYMPHOCYTES % 20.6 % (18.0-39.1); MEAN CORPUSCULAR HEMOGLOBIN 31.8 pg (28-32); MEAN CORPUSCULAR HGB CONC 32.9 g/dL (31-35); MEAN CORPUSCULAR VOLUME 96.5 fL (81-99); MONOCYTES # (AUTO) 0.4 (0.2-0.8); MONOCYTES % 8.8 % (4.4-11.3); NEUTROPHILS # (AUTO) 2.9 (2.1-6.9); NEUTROPHILS % 61.7 % (38.7-80.0); PLATELET COUNT 89 x10e3/uL (140-360); RED BLOOD COUNT 3.43 x10e6/uL (4.3-5.7); RED CELL DISTRIBUTION WIDTH 13.5 % (11.7-14.4)
[2018-04-20 04:53] LABS: INR 1.41; PROTHROMBIN TIME 16.2 seconds (11.9-14.5)
[2018-04-20 05:04] LABS: ANION GAP 15.4 mmol/L (8-16); BLOOD UREA NITROGEN 26 mg/dL (7-26); BUN/CREATININE RATIO 28 (6-25); CALCIUM 8.4 mg/dL (8.4-10.2); CARBON DIOXIDE 23 mmol/L (22-29); CHLORIDE 107 mmol/L (98-107); CREATININE, SERUM 0.93 mg/dL (0.72-1.25); EST GLOMERULAR FILTRATION RATE > 60 ML/MIN (60-); GLUCOSE 60 mg/dL (74-118); POTASSIUM 3.4 mmol/L (3.5-5.1); SODIUM 142 mmol/L (136-145)
[2018-04-20] MEDS: PIPER-TAZ 3.375 GM 50 ML IV SCH ×3 (05:19→18:34)
[2018-04-20] MEDS: INSULIN LISPRO 100 UNIT/1 ML 3ML VIAL SQ SCH ×4 (07:30→21:00)
[2018-04-20] MEDS: HYDROCODONE/APAP 10MG-325MG TAB PO PRN ×2 (08:50→17:52)
[2018-04-20] MEDS: AMLODIPINE BESYLATE 5 MG TAB PO SCH (08:50)
[2018-04-20] MEDS: PANTOPRAZOLE SOD 40 MG TABEC PO SCH (08:50)
[2018-04-20] MEDS: ASPIRIN 81 MG ENTERIC COATED PO SCH (08:50)
[2018-04-20] MEDS: LOSARTAN POTASSIUM 100 MG TAB PO SCH (08:50)
[2018-04-20] MEDS: METOPROLOL SUCCINATE 25 MG TAB XL PO SCH ×2 (08:50→16:39)
[2018-04-20] MEDS: GUAIFENESIN 600 MG TAB PO SCH ×2 (08:50→16:39)
[2018-04-20] MEDS: GLIPIZIDE 5 MG TAB ER PO SCH (08:50)
[2018-04-20] MEDS: BENZONATATE 100 MG CAP PO SCH ×3 (08:50→21:43)
[2018-04-20] MEDS ORDERED: POTASSIUM CHLORIDE 10 MEQ TABCR PO NR ×2 (09:45→19:00)
[2018-04-20] MEDS: GUAIFENESIN 200 MG/10 ML UDC PO PRN ×2 (10:44→17:52)
[2018-04-20] MEDS ORDERED: VANCOMYCIN 1GM/NS 250 ML 250 ML IV SCH ×3 (14:45→18:00)
[2018-04-20] MEDS ORDERED: SODIUM CHLORIDE 0.9% 250ML 250 ML ONE (15:14)
[2018-04-20] MEDS: AZITHROMYCIN 500MG/NS 250 ML 250 ML IV SCH (15:23)
[2018-04-20] MEDS: VANCOMYCIN 1GM/NS 250 ML 250 ML IV SCH (16:38)
[2018-04-20] MEDS: SITAGLIPTIN 100 MG TAB PO SCH (16:39)
[2018-04-20] MEDS ORDERED: PANTOPRAZOLE SOD 40 MG TABEC PO SCH (18:49)
[2018-04-20] MEDS: INSULIN DETEMIR 100 UNIT/ML PEN SQ SCH (21:00)
[2018-04-20] MEDS: GUAIFENESIN/CODEINE 10 ML CUP PO PRN (21:45)
[2018-04-21] VITALS: BP 105/52
--- NOTE | 2018-04-21 00:05 | Diagnostic Imaging Report ---
EXAMINATION: CHEST 2 VIEWS INDICATION: Cough, hypoxia COMPARISON: Chest x-ray on 04/15/2018 FINDINGS: TUBES and LINES: None. LUNGS: Lungs are not well inflated. Diffuse opacification of the left lower lobe and into a lesser extent right lower lobe PLEURA: No pleural effusion or pneumothorax. HEART AND MEDIASTINUM: Stable mediastinum status post CABG. There are atherosclerotic calcifications within the aorta. BONES AND SOFT TISSUES: No acute osseous lesion. Soft tissues are unremarkable. UPPER ABDOMEN: No free air under the diaphragm. IMPRESSION: Findings are compatible with multifocal pneumonia with left lower lung predominance. Signed by: Dr. Jl Guillaume M.D. on 04/21/2018 12:01 AM
[2018-04-21] MEDS: PIPER-TAZ 3.375 GM 50 ML IV SCH ×4 (00:45→19:08)
[2018-04-21] MEDS: ALBUTEROL/IPRATROPIUM 3 ML NEB NEB SCH ×6 (02:00→22:30)
[2018-04-21 04:00] VITALS: BP 117/58
[2018-04-21] MEDS: VANCOMYCIN 1GM/NS 250 ML 250 ML IV SCH ×2 (05:27→16:46)
[2018-04-21] MEDS: INSULIN LISPRO 100 UNIT/1 ML 3ML VIAL SQ SCH ×4 (07:30→20:44)
[2018-04-21 08:00] VITALS: BP 103/54
[2018-04-21] MEDS: BENZONATATE 100 MG CAP PO SCH ×3 (08:17→20:34)
[2018-04-21] MEDS: ASPIRIN 81 MG ENTERIC COATED PO SCH (08:17)
[2018-04-21] MEDS: GUAIFENESIN 600 MG TAB PO SCH ×2 (08:17→16:46)
[2018-04-21] MEDS: LOSARTAN POTASSIUM 100 MG TAB PO SCH (08:17)
[2018-04-21] MEDS: PANTOPRAZOLE SOD 40 MG TABEC PO SCH (08:18)
[2018-04-21] MEDS: GLIPIZIDE 5 MG TAB ER PO SCH (08:18)
[2018-04-21] MEDS: METOPROLOL SUCCINATE 25 MG TAB XL PO SCH ×2 (09:00→16:35)
[2018-04-21] MEDS: AMLODIPINE BESYLATE 5 MG TAB PO SCH (09:00)
[2018-04-21] MEDS: HYDROCODONE/APAP 10MG-325MG TAB PO PRN ×3 (11:55→22:32)
[2018-04-21] MEDS: GUAIFENESIN 200 MG/10 ML UDC PO PRN ×3 (11:55→22:32)
[2018-04-21 12:00] VITALS: BP 111/59
[2018-04-21] MEDS: AZITHROMYCIN 500MG/NS 250 ML 250 ML IV SCH (15:45)
[2018-04-21 16:00] VITALS: BP 99/56
[2018-04-21] MEDS: SITAGLIPTIN 100 MG TAB PO SCH (16:46)
[2018-04-21] MEDS: INSULIN DETEMIR 100 UNIT/ML PEN SQ SCH (20:44)
[2018-04-21 21:39] VITALS: BP 103/60
[2018-04-22] VITALS (7 sets, daily range): BP systolic 105–138; BP diastolic 52–74
[2018-04-22] MEDS: ALBUTEROL/IPRATROPIUM 3 ML NEB NEB SCH ×6 (02:00→22:45)
[2018-04-22] MEDS: PIPER-TAZ 3.375 GM 50 ML IV SCH ×5 (03:00→23:26)
[2018-04-22] MEDS: VANCOMYCIN 1GM/NS 250 ML 250 ML IV SCH ×2 (04:30→16:20)
[2018-04-22 04:55] LABS: BASOPHILS % 0.6 % (0.0-1.0); EOSINOPHILS # (AUTO) 0.2 (0.0-0.4); EOSINOPHILS % 3.8 % (0.0-6.0); HEMATOCRIT 32.1 % (38.2-49.6); HEMOGLOBIN 10.5 g/dL (14.0-18.0); LYMPHOCYTES # (AUTO) 0.8 (1.0-3.2); LYMPHOCYTES % 15.6 % (18.0-39.1); MEAN CORPUSCULAR HEMOGLOBIN 31.4 pg (28-32); MEAN CORPUSCULAR HGB CONC 32.7 g/dL (31-35); MEAN CORPUSCULAR VOLUME 96.1 fL (81-99); MONOCYTES # (AUTO) 0.4 (0.2-0.8); MONOCYTES % 6.8 % (4.4-11.3); NEUTROPHILS # (AUTO) 3.7 (2.1-6.9); NEUTROPHILS % 68.7 % (38.7-80.0); PLATELET COUNT 107 x10e3/uL (140-360); RED BLOOD COUNT 3.34 x10e6/uL (4.3-5.7); RED CELL DISTRIBUTION WIDTH 13.4 % (11.7-14.4)
[2018-04-22 05:33] LABS: ANION GAP 13.8 mmol/L (8-16); BLOOD UREA NITROGEN 22 mg/dL (7-26); BUN/CREATININE RATIO 21 (6-25); CALCIUM 8.5 mg/dL (8.4-10.2); CARBON DIOXIDE 23 mmol/L (22-29); CHLORIDE 108 mmol/L (98-107); CREATININE, SERUM 1.03 mg/dL (0.72-1.25); EST GLOMERULAR FILTRATION RATE > 60 ML/MIN (60-); GLUCOSE 88 mg/dL (74-118); POTASSIUM 3.8 mmol/L (3.5-5.1); SODIUM 141 mmol/L (136-145)
[2018-04-22] MEDS: INSULIN LISPRO 100 UNIT/1 ML 3ML VIAL SQ SCH ×4 (07:30→20:45)
[2018-04-22 07:46] LABS: EOSINOPHILS % (MANUAL) 3 % (0-7); LYMPHOCYTES % (MANUAL) 16 % (19-48); METAMYELOCYTES % (MANUAL) 2 % (0-0); MONOCYTES % (MANUAL) 7 % (3.4-9.0); MYELOCYTES % (MANUAL) 1 % (0-0); NEUTROPHILS % (MANUAL) 68 % (40-74)
[2018-04-22 07:49] LABS: PLATELET ESTIMATE SLIGHTLY DECREASED; PLATELET MORPHOLOGY COMMENT FEW LARGE; RBC MORPHOLOGY COMMENT NORMAL
[2018-04-22 07:50] LABS: ANISOCYTOSIS SLIGHT; HYPOCHROMASIA SLIGHT
[2018-04-22] MEDS: AMLODIPINE BESYLATE 5 MG TAB PO SCH (08:23)
[2018-04-22] MEDS: PANTOPRAZOLE SOD 40 MG TABEC PO SCH (08:23)
[2018-04-22] MEDS: GUAIFENESIN 600 MG TAB PO SCH ×2 (08:23→16:20)
[2018-04-22] MEDS: BENZONATATE 100 MG CAP PO SCH ×3 (08:23→20:43)
[2018-04-22] MEDS: ASPIRIN 81 MG ENTERIC COATED PO SCH (08:23)
[2018-04-22] MEDS: GLIPIZIDE 5 MG TAB ER PO SCH (08:23)
[2018-04-22] MEDS: LOSARTAN POTASSIUM 100 MG TAB PO SCH (08:23)
[2018-04-22] MEDS: METOPROLOL SUCCINATE 25 MG TAB XL PO SCH ×2 (08:24→16:20)
[2018-04-22] MEDS: AZITHROMYCIN 500MG/NS 250 ML 250 ML IV SCH (15:26)
[2018-04-22] MEDS: SITAGLIPTIN 100 MG TAB PO SCH (16:20)
[2018-04-22] MEDS: INSULIN DETEMIR 100 UNIT/ML PEN SQ SCH (20:45)
[2018-04-22] MEDS: GUAIFENESIN/CODEINE 10 ML CUP PO PRN (22:22)
[2018-04-22] MEDS: HYDROCODONE/APAP 10MG-325MG TAB PO PRN (22:22)
[2018-04-23] VITALS (7 sets, daily range): BP systolic 99–145; BP diastolic 54–71
[2018-04-23] MEDS: ALBUTEROL/IPRATROPIUM 3 ML NEB NEB SCH ×6 (03:05→23:00)
[2018-04-23] MEDS: VANCOMYCIN 1GM/NS 250 ML 250 ML IV SCH ×2 (03:53→17:04)
[2018-04-23] MEDS: PIPER-TAZ 3.375 GM 50 ML IV SCH ×4 (05:43→23:47)
[2018-04-23] MEDS: INSULIN LISPRO 100 UNIT/1 ML 3ML VIAL SQ SCH ×4 (07:30→20:26)
[2018-04-23] MEDS: PANTOPRAZOLE SOD 40 MG TABEC PO SCH (08:51)
[2018-04-23] MEDS: LOSARTAN POTASSIUM 100 MG TAB PO SCH (08:52)
[2018-04-23] MEDS: ASPIRIN 81 MG ENTERIC COATED PO SCH (08:52)
[2018-04-23] MEDS: BENZONATATE 100 MG CAP PO SCH ×3 (08:52→19:46)
[2018-04-23] MEDS: AMLODIPINE BESYLATE 5 MG TAB PO SCH (08:52)
[2018-04-23] MEDS: GLIPIZIDE 5 MG TAB ER PO SCH (08:52)
[2018-04-23] MEDS: GUAIFENESIN 600 MG TAB PO SCH ×2 (08:52→16:15)
[2018-04-23] MEDS: METOPROLOL SUCCINATE 25 MG TAB XL PO SCH ×2 (08:53→16:15)
[2018-04-23] MEDS: AZITHROMYCIN 500MG/NS 250 ML 250 ML IV SCH (14:41)
[2018-04-23] MEDS: SITAGLIPTIN 100 MG TAB PO SCH (16:15)
[2018-04-23] MEDS ORDERED: SODIUM CHLORIDE 0.9% 250ML 250 ML ONE (19:45)
[2018-04-23] MEDS: GUAIFENESIN 200 MG/10 ML UDC PO PRN (19:47)
[2018-04-23] MEDS: INSULIN DETEMIR 100 UNIT/ML PEN SQ SCH (21:09)
[2018-04-23] MEDS: HYDROCODONE/APAP 10MG-325MG TAB PO PRN (22:16)
[2018-04-24] VITALS (9 sets, daily range): BP systolic 99–181; BP diastolic 53–73
[2018-04-24] MEDS: VANCOMYCIN 1GM/NS 250 ML 250 ML IV SCH ×2 (03:02→16:35)
[2018-04-24] MEDS: ALBUTEROL/IPRATROPIUM 3 ML NEB NEB SCH ×6 (03:08→23:05)
[2018-04-24] MEDS: PIPER-TAZ 3.375 GM 50 ML IV SCH ×3 (05:05→19:17)
[2018-04-24] MEDS: INSULIN LISPRO 100 UNIT/1 ML 3ML VIAL SQ SCH ×4 (07:30→21:00)
[2018-04-24] MEDS: BENZONATATE 100 MG CAP PO SCH ×3 (08:43→21:25)
[2018-04-24] MEDS: LOSARTAN POTASSIUM 100 MG TAB PO SCH (08:43)
[2018-04-24] MEDS: ASPIRIN 81 MG ENTERIC COATED PO SCH (08:43)
[2018-04-24] MEDS: GLIPIZIDE 5 MG TAB ER PO SCH (08:43)
[2018-04-24] MEDS: GUAIFENESIN 600 MG TAB PO SCH ×2 (08:43→16:36)
[2018-04-24] MEDS: PANTOPRAZOLE SOD 40 MG TABEC PO SCH (08:43)
[2018-04-24] MEDS: AMLODIPINE BESYLATE 5 MG TAB PO SCH (08:43)
[2018-04-24] MEDS: METOPROLOL SUCCINATE 25 MG TAB XL PO SCH ×2 (08:44→16:36)
[2018-04-24] MEDS ORDERED: SODIUM CHLORIDE 0.9% 250ML 250 ML ONE (12:30)
[2018-04-24] MEDS: GUAIFENESIN 200 MG/10 ML UDC PO PRN ×2 (12:39→20:25)
[2018-04-24] MEDS: AZITHROMYCIN 500MG/NS 250 ML 250 ML IV SCH (15:14)
[2018-04-24] MEDS: SITAGLIPTIN 100 MG TAB PO SCH (16:35)
[2018-04-24] MEDS: INSULIN DETEMIR 100 UNIT/ML PEN SQ SCH (21:00)
[2018-04-24] MEDS: HYDROCODONE/APAP 10MG-325MG TAB PO PRN (21:59)
[2018-04-25] VITALS (8 sets, daily range): BP systolic 111–143; BP diastolic 53–66
[2018-04-25] MEDS: PIPER-TAZ 3.375 GM 50 ML IV SCH ×4 (00:15→18:32)
[2018-04-25] MEDS: ALBUTEROL/IPRATROPIUM 3 ML NEB NEB SCH ×7 (03:15→22:00)
[2018-04-25] MEDS: VANCOMYCIN 1GM/NS 250 ML 250 ML IV SCH ×2 (04:20→16:30)
[2018-04-25 04:49] LABS: BASOPHILS % 0.2 % (0.0-1.0); EOSINOPHILS # (AUTO) 0.1 (0.0-0.4); EOSINOPHILS % 2.7 % (0.0-6.0); HEMATOCRIT 30.6 % (38.2-49.6); LYMPHOCYTES # (AUTO) 0.9 (1.0-3.2); LYMPHOCYTES % 19.1 % (18.0-39.1); MEAN CORPUSCULAR HEMOGLOBIN 31.7 pg (28-32); MEAN CORPUSCULAR HGB CONC 32.7 g/dL (31-35); MEAN CORPUSCULAR VOLUME 97.1 fL (81-99); MONOCYTES # (AUTO) 0.4 (0.2-0.8); MONOCYTES % 8.8 % (4.4-11.3); NEUTROPHILS % 68.3 % (38.7-80.0); PLATELET COUNT 116 x10e3/uL (140-360); RED BLOOD COUNT 3.15 x10e6/uL (4.3-5.7); RED CELL DISTRIBUTION WIDTH 13.5 % (11.7-14.4)
[2018-04-25 05:10] LABS: ANION GAP 14.4 mmol/L (8-16); BLOOD UREA NITROGEN 12 mg/dL (7-26); BUN/CREATININE RATIO 14 (6-25); CALCIUM 8.7 mg/dL (8.4-10.2); CARBON DIOXIDE 23 mmol/L (22-29); CHLORIDE 107 mmol/L (98-107); CREATININE, SERUM 0.83 mg/dL (0.72-1.25); EST GLOMERULAR FILTRATION RATE > 60 ML/MIN (60-); GLUCOSE 65 mg/dL (74-118); POTASSIUM 3.4 mmol/L (3.5-5.1); SODIUM 141 mmol/L (136-145)
[2018-04-25] MEDS: INSULIN LISPRO 100 UNIT/1 ML 3ML VIAL SQ SCH ×4 (07:30→21:00)
[2018-04-25] MEDS: GLIPIZIDE 5 MG TAB ER PO SCH (08:05)
[2018-04-25] MEDS: PANTOPRAZOLE SOD 40 MG TABEC PO SCH (08:05)
[2018-04-25] MEDS: LOSARTAN POTASSIUM 100 MG TAB PO SCH (08:35)
[2018-04-25] MEDS: GUAIFENESIN 600 MG TAB PO SCH ×2 (08:35→17:02)
[2018-04-25] MEDS: METOPROLOL SUCCINATE 25 MG TAB XL PO SCH ×2 (08:35→17:02)
[2018-04-25] MEDS: AMLODIPINE BESYLATE 5 MG TAB PO SCH (08:35)
[2018-04-25] MEDS: BENZONATATE 100 MG CAP PO SCH ×3 (08:35→22:00)
[2018-04-25] MEDS: ASPIRIN 81 MG ENTERIC COATED PO SCH (08:35)
[2018-04-25] MEDS ORDERED: POTASSIUM CHLORIDE 10 MEQ TABCR PO ONE (14:30)
[2018-04-25] MEDS: AZITHROMYCIN 500MG/NS 250 ML 250 ML IV SCH (15:05)
[2018-04-25] MEDS: SITAGLIPTIN 100 MG TAB PO SCH (17:02)
[2018-04-25] MEDS: GUAIFENESIN 200 MG/10 ML UDC PO PRN (18:53)
[2018-04-25] MEDS: INSULIN DETEMIR 100 UNIT/ML PEN SQ SCH (21:00)
[2018-04-26] VITALS (8 sets, daily range): BP systolic 98–137; BP diastolic 53–66
[2018-04-26] MEDS: PIPER-TAZ 3.375 GM 50 ML IV SCH ×3 (00:05→17:57)
[2018-04-26] MEDS: ALBUTEROL/IPRATROPIUM 3 ML NEB NEB SCH ×6 (02:00→22:15)
[2018-04-26] MEDS: VANCOMYCIN 1GM/NS 250 ML 250 ML IV SCH ×2 (04:29→15:47)
[2018-04-26] MEDS: INSULIN LISPRO 100 UNIT/1 ML 3ML VIAL SQ SCH ×4 (07:30→20:55)
[2018-04-26] MEDS: GUAIFENESIN 200 MG/10 ML UDC PO PRN ×2 (08:37→12:56)
[2018-04-26] MEDS: HYDROCODONE/APAP 10MG-325MG TAB PO PRN ×3 (08:37→21:01)
[2018-04-26] MEDS: ASPIRIN 81 MG ENTERIC COATED PO SCH (08:38)
[2018-04-26] MEDS: GUAIFENESIN 600 MG TAB PO SCH ×2 (08:38→16:38)
[2018-04-26] MEDS: BENZONATATE 100 MG CAP PO SCH ×3 (08:38→20:55)
[2018-04-26] MEDS: PANTOPRAZOLE SOD 40 MG TABEC PO SCH (08:38)
[2018-04-26] MEDS: GLIPIZIDE 5 MG TAB ER PO SCH (08:38)
[2018-04-26] MEDS: LOSARTAN POTASSIUM 100 MG TAB PO SCH (08:38)
[2018-04-26] MEDS: METOPROLOL SUCCINATE 25 MG TAB XL PO SCH ×2 (09:00→16:33)
[2018-04-26] MEDS: AMLODIPINE BESYLATE 5 MG TAB PO SCH (09:00)
[2018-04-26] MEDS: AZITHROMYCIN 500MG/NS 250 ML 250 ML IV SCH (14:30)
[2018-04-26] MEDS: SITAGLIPTIN 100 MG TAB PO SCH (16:38)
[2018-04-26] MEDS: INSULIN DETEMIR 100 UNIT/ML PEN SQ SCH (20:57)
[2018-04-27] VITALS: BP 128/76
[2018-04-27] MEDS: PIPER-TAZ 3.375 GM 50 ML IV SCH ×4 (00:45→17:00)
[2018-04-27] MEDS: ALBUTEROL/IPRATROPIUM 3 ML NEB NEB SCH ×6 (02:00→23:05)
[2018-04-27 04:00] VITALS: BP 140/75
[2018-04-27 04:16] LABS: ANION GAP 14.5 mmol/L (8-16); BLOOD UREA NITROGEN 12 mg/dL (7-26); BUN/CREATININE RATIO 14 (6-25); CALCIUM 8.8 mg/dL (8.4-10.2); CARBON DIOXIDE 23 mmol/L (22-29); CHLORIDE 106 mmol/L (98-107); CREATININE, SERUM 0.88 mg/dL (0.72-1.25); EST GLOMERULAR FILTRATION RATE > 60 ML/MIN (60-); GLUCOSE 92 mg/dL (74-118); POTASSIUM 3.5 mmol/L (3.5-5.1); SODIUM 140 mmol/L (136-145)
[2018-04-27] MEDS: VANCOMYCIN 1GM/NS 250 ML 250 ML IV SCH ×2 (04:34→15:00)
[2018-04-27 07:30] VITALS: BP 150/66
[2018-04-27] MEDS: INSULIN LISPRO 100 UNIT/1 ML 3ML VIAL SQ SCH ×4 (07:30→21:00)
[2018-04-27] MEDS: PANTOPRAZOLE SOD 40 MG TABEC PO SCH (07:51)
[2018-04-27] MEDS: METOPROLOL SUCCINATE 25 MG TAB XL PO SCH ×2 (07:52→16:15)
[2018-04-27] MEDS: AMLODIPINE BESYLATE 5 MG TAB PO SCH (07:52)
[2018-04-27] MEDS: GUAIFENESIN 600 MG TAB PO SCH ×2 (07:52→16:11)
[2018-04-27] MEDS: ASPIRIN 81 MG ENTERIC COATED PO SCH (07:52)
[2018-04-27] MEDS: BENZONATATE 100 MG CAP PO SCH ×3 (07:52→21:37)
[2018-04-27] MEDS: GLIPIZIDE 5 MG TAB ER PO SCH (07:52)
[2018-04-27] MEDS: LOSARTAN POTASSIUM 100 MG TAB PO SCH (07:52)
[2018-04-27] MEDS: GUAIFENESIN 200 MG/10 ML UDC PO PRN ×2 (07:53→21:35)
[2018-04-27] MEDS: HYDROCODONE/APAP 10MG-325MG TAB PO PRN ×2 (07:53→21:35)
[2018-04-27 08:03] VITALS: BP 150/66
[2018-04-27] MEDS ORDERED: SODIUM CHLORIDE 0.9% 250ML 250 ML ONE (11:47)
[2018-04-27 16:00] VITALS: BP_SYST 106; BP_SYST 169; BP_DIAS 53; BP_DIAS 74
[2018-04-27] MEDS: SITAGLIPTIN 100 MG TAB PO SCH (16:11)
[2018-04-27 20:54] VITALS: BP 116/68
[2018-04-27] MEDS: INSULIN DETEMIR 100 UNIT/ML PEN SQ SCH (21:36)
[2018-04-28] VITALS (9 sets, daily range): BP systolic 97–157; BP diastolic 53–91
[2018-04-28] MEDS: PIPER-TAZ 3.375 GM 50 ML IV SCH ×5 (00:08→23:45)
[2018-04-28] MEDS: ALBUTEROL/IPRATROPIUM 3 ML NEB NEB SCH ×6 (02:25→22:35)
[2018-04-28] MEDS: VANCOMYCIN 1GM/NS 250 ML 250 ML IV SCH ×2 (04:10→16:05)
[2018-04-28] MEDS: INSULIN LISPRO 100 UNIT/1 ML 3ML VIAL SQ SCH ×4 (07:30→20:41)
[2018-04-28] MEDS: PANTOPRAZOLE SOD 40 MG TABEC PO SCH (07:51)
[2018-04-28] MEDS: GLIPIZIDE 5 MG TAB ER PO SCH (08:57)
[2018-04-28] MEDS: ASPIRIN 81 MG ENTERIC COATED PO SCH (09:19)
[2018-04-28] MEDS: GUAIFENESIN 600 MG TAB PO SCH ×2 (09:20→17:13)
[2018-04-28] MEDS: AMLODIPINE BESYLATE 5 MG TAB PO SCH (09:20)
[2018-04-28] MEDS: METOPROLOL SUCCINATE 25 MG TAB XL PO SCH ×2 (09:20→17:13)
[2018-04-28] MEDS: LOSARTAN POTASSIUM 100 MG TAB PO SCH (09:20)
[2018-04-28] MEDS: BENZONATATE 100 MG CAP PO SCH ×3 (09:20→20:40)
--- NOTE | 2018-04-28 16:55 | Diagnostic Imaging Report ---
EXAMINATION: PA and lateral views of the chest. COMPARISON: Chest 2 views 04/20/2018. CT chest 04/16/2020 CLINICAL HISTORY: Pneumonia DISCUSSION: Lines/tubes: None. Lungs: Lungs are well-inflated. Interval worsening of airspace opacities in the left lower lobe and right lower lobe lung. Pleura: Blunting of bilateral posterior costophrenic sulci, suggesting bilateral pleural effusions Heart and mediastinum: Stable enlargement of the cardiac silhouette. Pulmonary vasculature is normal. Bones and soft tissues: No acute bony abnormalities. IMPRESSION: Interval worsening of bilateral lower lobe airspace opacities consistent with multifocal pneumonia. Bilateral small pleural effusions Signed by: Dr. Enzo Masters M.D. on 04/28/2018 4:51 PM
[2018-04-28] MEDS: HYDROCODONE/APAP 10MG-325MG TAB PO PRN ×2 (17:10→22:31)
[2018-04-28] MEDS: SITAGLIPTIN 100 MG TAB PO SCH (17:13)
[2018-04-28] MEDS: INSULIN DETEMIR 100 UNIT/ML PEN SQ SCH (20:42)
[2018-04-28] MEDS: GUAIFENESIN 200 MG/10 ML UDC PO PRN (22:27)
[2018-04-29] VITALS (7 sets, daily range): BP systolic 113–121; BP diastolic 57–88
[2018-04-29] MEDS: ALBUTEROL/IPRATROPIUM 3 ML NEB NEB SCH ×6 (02:55→22:50)
[2018-04-29] MEDS: VANCOMYCIN 1GM/NS 250 ML 250 ML IV SCH (03:59)
[2018-04-29] MEDS: INSULIN LISPRO 100 UNIT/1 ML 3ML VIAL SQ SCH ×4 (07:30→20:41)
[2018-04-29] MEDS: HYDROCODONE/APAP 10MG-325MG TAB PO PRN ×2 (08:20→22:35)
[2018-04-29] MEDS: PANTOPRAZOLE SOD 40 MG TABEC PO SCH (08:33)
[2018-04-29] MEDS: GLIPIZIDE 5 MG TAB ER PO SCH (08:34)
[2018-04-29] MEDS: LOSARTAN POTASSIUM 100 MG TAB PO SCH (08:34)
[2018-04-29] MEDS: GUAIFENESIN 600 MG TAB PO SCH ×2 (08:34→17:54)
[2018-04-29] MEDS: ASPIRIN 81 MG ENTERIC COATED PO SCH (08:34)
[2018-04-29] MEDS: AMLODIPINE BESYLATE 5 MG TAB PO SCH (08:34)
[2018-04-29] MEDS: BENZONATATE 100 MG CAP PO SCH ×3 (08:34→21:00)
[2018-04-29] MEDS: METOPROLOL SUCCINATE 25 MG TAB XL PO SCH ×2 (08:35→17:54)
--- NOTE | 2018-04-29 12:01 | Diagnostic Imaging Report ---
PROCEDURE:CT CHEST WITHOUT CONTRAST COMPARISON:[facility], CT, CT CHEST WO, 04/16/2018, 13:37. INDICATIONS:SHORTNESS OF BREATH, multifocal infiltrates TECHNIQUE: Axial CT images of the chest were obtained from the lung apices through the adrenal glands. Coronal and sagittal reformations were made available for review. No intravenous contrast was administered. RADIATION DOSE: Total DLP: 515.2 mGy*cm Estimated effective dose: (DLP x 0.014 x size factor) mSv FINDINGS: Lungs: Multifocal pulmonary infiltrates are re-demonstrated. Right lung: There is a new area of groundglass attenuation in the lateral upper lobe. A linear band of groundglass attenuation in the posterior upper lobe on previous exam has become more consolidated and nodular (images 64 through 67). Infiltrates in the lateral segment middle lobe and in the lower lobe have also become more dense. No increased attenuation to suggest hemorrhage. Calcified subcentimeter granuloma in the anterolateral lobe is stable. Left lung: Infiltrates in the posterior upper lobe, lingula, and lower lobe have become more dense. No increased attenuation to suggest hemorrhage. Airways: There is a small amount of mucus in the proximal right lower lobe bronchus. Pleura:New pleural effusions, measuring 3.4 cm on the right and 2.4 cm on the left. Calcified pleural plaques in the posterior left chest are stable. A surgical clip or wire in the inferior left chest is stable (image 92) Lymph nodes: No enlarged axillary, supraclavicular lymph nodes. Mediastinal lymph nodes are mildly prominent. A prevascular lymph node measures 1.9 x 1.2 cm (previously, 1.4 x 0.9 cm). Subcarinal lymph node measures 2.1 cm in AP dimension (previously, 1.7 cm). Thyroid/base of neck: Unremarkable. Heart \T\ Mediastinum:The heart is mildly enlarged. No pericardial effusion. The esophagus is collapsed. There is a significant burden of coronary artery calcifications. Vessels:Stable aortic calcifications. No aneurysmal dilatation of the aorta. Main pulmonary artery measures 3 cm in diameter. Upper abdomen:The spleen measures 17.5 cm in AP dimension (previously, 16.4 cm). Diminished attenuation of the liver is stable. No fluid collection the visualized portion of the upper abdomen. Musculoskeletal:Median sternotomy wires are intact. No new osseous findings. Soft tissues: Bilateral gynecomastia. CONCLUSION: 1. Multifocal pulmonary infiltrates have become more dense and may represent disease progression. New area of airspace disease has developed in the right upper lobe suggestive of a new focus of pneumonia. Mediastinal lymph nodes are larger and are likely reactive. 2. New bilateral pleural effusions. 3. Increasing splenomegaly. 4. Stable steatosis. Dictated by: Layton Sweet M.D. on 04/29/2018 at 12:07 Electronically approved by: Layton Sweet M.D. on 04/29/2018 at 12:07
[2018-04-29] MEDS ORDERED: PIPER-TAZ 3.375 GM 50 ML IV SCH (14:00)
[2018-04-29] MEDS: GUAIFENESIN 200 MG/10 ML UDC PO PRN ×2 (14:27→22:35)
[2018-04-29] MEDS: LINEZOLID 600 MG/D5W 300ML 300 ML IV SCH (17:54)
[2018-04-29] MEDS: SITAGLIPTIN 100 MG TAB PO SCH (17:54)
[2018-04-29] MEDS: MEROPENEM 500MG 500 MG in SODIUM CHLORIDE 0.9% 50ML 50 ML IV SCH ×2 (17:55→22:35)
[2018-04-29] MEDS: INSULIN DETEMIR 100 UNIT/ML PEN SQ SCH (21:01)
[2018-04-30] VITALS (10 sets, daily range): BP systolic 84–143; BP diastolic 52–80
[2018-04-30] MEDS: MEROPENEM 500MG 500 MG in SODIUM CHLORIDE 0.9% 50ML 50 ML IV SCH ×6 (01:55→22:00)
[2018-04-30] MEDS: ALBUTEROL/IPRATROPIUM 3 ML NEB NEB SCH ×6 (02:55→22:05)
[2018-04-30 04:48] LABS: EOSINOPHILS # (AUTO) 0.1 (0.0-0.4); EOSINOPHILS % 3.2 % (0.0-6.0); HEMATOCRIT 31.1 % (38.2-49.6); HEMOGLOBIN 9.9 g/dL (14.0-18.0); LYMPHOCYTES # (AUTO) 0.9 (1.0-3.2); MEAN CORPUSCULAR HEMOGLOBIN 31.2 pg (28-32); MEAN CORPUSCULAR HGB CONC 31.8 g/dL (31-35); MEAN CORPUSCULAR VOLUME 98.1 fL (81-99); MONOCYTES # (AUTO) 0.4 (0.2-0.8); MONOCYTES % 9.4 % (4.4-11.3); NEUTROPHILS # (AUTO) 2.6 (2.1-6.9); NEUTROPHILS % 64.2 % (38.7-80.0); PLATELET COUNT 143 x10e3/uL (140-360); RED BLOOD COUNT 3.17 x10e6/uL (4.3-5.7); RED CELL DISTRIBUTION WIDTH 13.4 % (11.7-14.4)
[2018-04-30] MEDS: LINEZOLID 600 MG/D5W 300ML 300 ML IV SCH ×2 (05:01→17:00)
[2018-04-30 05:16] LABS: ANION GAP 13.6 mmol/L (8-16); BLOOD UREA NITROGEN 9 mg/dL (7-26); BUN/CREATININE RATIO 10 (6-25); CALCIUM 8.9 mg/dL (8.4-10.2); CARBON DIOXIDE 25 mmol/L (22-29); CHLORIDE 106 mmol/L (98-107); EST GLOMERULAR FILTRATION RATE > 60 ML/MIN (60-); POTASSIUM 3.6 mmol/L (3.5-5.1); SODIUM 141 mmol/L (136-145)
[2018-04-30 05:18] LABS: GLUCOSE 54 mg/dL (74-118)
[2018-04-30] MEDS: PANTOPRAZOLE SOD 40 MG TABEC PO SCH (07:30)
[2018-04-30] MEDS: INSULIN LISPRO 100 UNIT/1 ML 3ML VIAL SQ SCH ×4 (07:30→21:33)
[2018-04-30] MEDS: ASPIRIN 81 MG ENTERIC COATED PO SCH (09:36)
[2018-04-30] MEDS: METOPROLOL SUCCINATE 25 MG TAB XL PO SCH ×2 (09:37→17:00)
[2018-04-30] MEDS: GUAIFENESIN 600 MG TAB PO SCH ×2 (09:37→17:00)
[2018-04-30] MEDS: AMLODIPINE BESYLATE 5 MG TAB PO SCH (09:37)
[2018-04-30] MEDS: LOSARTAN POTASSIUM 100 MG TAB PO SCH (09:37)
[2018-04-30] MEDS: BENZONATATE 100 MG CAP PO SCH ×3 (09:37→21:31)
[2018-04-30] MEDS ORDERED: FUROSEMIDE INJ 10 MG/ML 4 ML VIAL IV ONE (09:45)
[2018-04-30] MEDS: GUAIFENESIN 200 MG/10 ML UDC PO PRN ×2 (17:00→21:32)
[2018-04-30] MEDS ORDERED: SODIUM CHLORIDE 0.9% 250ML 250 ML ONE (17:17)
[2018-04-30] MEDS ORDERED: SALINE 0.65% NAS SOLN 1 SPRAY BTL PRN (19:15)
[2018-04-30] MEDS: HYDROCODONE/APAP 10MG-325MG TAB PO PRN (21:32)
[2018-04-30] MEDS: INSULIN DETEMIR 100 UNIT/ML PEN SQ SCH (21:33)
[2018-05-01] VITALS (7 sets, daily range): BP systolic 112–154; BP diastolic 56–69
[2018-05-01] MEDS: MEROPENEM 500MG 500 MG in SODIUM CHLORIDE 0.9% 50ML 50 ML IV SCH ×6 (02:00→22:30)
[2018-05-01] MEDS: ALBUTEROL/IPRATROPIUM 3 ML NEB NEB SCH ×6 (02:16→23:05)
[2018-05-01] MEDS: LINEZOLID 600 MG/D5W 300ML 300 ML IV SCH ×2 (04:13→17:00)
[2018-05-01 04:53] LABS: BASOPHILS % 0.9 % (0.0-1.0); EOSINOPHILS # (AUTO) 0.1 (0.0-0.4); EOSINOPHILS % 3.7 % (0.0-6.0); HEMOGLOBIN 9.8 g/dL (14.0-18.0); LYMPHOCYTES # (AUTO) 0.9 (1.0-3.2); LYMPHOCYTES % 26.2 % (18.0-39.1); MEAN CORPUSCULAR HEMOGLOBIN 30.9 pg (28-32); MEAN CORPUSCULAR HGB CONC 31.6 g/dL (31-35); MEAN CORPUSCULAR VOLUME 97.8 fL (81-99); MONOCYTES # (AUTO) 0.3 (0.2-0.8); MONOCYTES % 10.2 % (4.4-11.3); NEUTROPHILS # (AUTO) 1.9 (2.1-6.9); NEUTROPHILS % 58.7 % (38.7-80.0); PLATELET COUNT 141 x10e3/uL (140-360); RED BLOOD COUNT 3.17 x10e6/uL (4.3-5.7); RED CELL DISTRIBUTION WIDTH 13.4 % (11.7-14.4)
[2018-05-01 05:34] LABS: ALANINE AMINOTRANSFERASE 23 IU/L (0-55); ALBUMIN 2.5 g/dL (3.5-5.0); ALBUMIN/GLOBULIN RATIO 0.6 (0.8-2.0); ALKALINE PHOSPHATASE 116 IU/L (40-150); ANION GAP 13.1 mmol/L (8-16); BLOOD UREA NITROGEN 8 mg/dL (7-26); BUN/CREATININE RATIO 9 (6-25); CALCIUM 8.8 mg/dL (8.4-10.2); CARBON DIOXIDE 27 mmol/L (22-29); CHLORIDE 104 mmol/L (98-107); CREATININE, SERUM 0.91 mg/dL (0.72-1.25); EST GLOMERULAR FILTRATION RATE > 60 ML/MIN (60-); GLUCOSE 71 mg/dL (74-118); POTASSIUM 3.1 mmol/L (3.5-5.1); SODIUM 141 mmol/L (136-145)
[2018-05-01] MEDS: INSULIN LISPRO 100 UNIT/1 ML 3ML VIAL SQ SCH ×4 (07:30→21:48)
[2018-05-01] MEDS: PANTOPRAZOLE SOD 40 MG TABEC PO SCH (07:30)
[2018-05-01] MEDS: GUAIFENESIN 600 MG TAB PO SCH ×2 (08:49→17:00)
[2018-05-01] MEDS: ASPIRIN 81 MG ENTERIC COATED PO SCH (08:49)
[2018-05-01] MEDS: LOSARTAN POTASSIUM 100 MG TAB PO SCH (08:49)
[2018-05-01] MEDS: AMLODIPINE BESYLATE 5 MG TAB PO SCH (08:49)
[2018-05-01] MEDS: METOPROLOL SUCCINATE 25 MG TAB XL PO SCH ×2 (08:50→17:00)
[2018-05-01] MEDS: BENZONATATE 100 MG CAP PO SCH ×3 (08:50→21:47)
[2018-05-01] MEDS ORDERED: MEROPENEM 500 MG VIAL ONE (10:09)
[2018-05-01] MEDS ORDERED: POTASSIUM CHLORIDE 10 MEQ TABCR PO NR (10:30)
[2018-05-01] MEDS: GUAIFENESIN 200 MG/10 ML UDC PO PRN ×2 (18:02→22:35)
[2018-05-01] MEDS: INSULIN DETEMIR 100 UNIT/ML PEN SQ SCH (21:50)
[2018-05-02] VITALS (8 sets, daily range): BP systolic 105–165; BP diastolic 58–77
[2018-05-02] MEDS: ALBUTEROL/IPRATROPIUM 3 ML NEB NEB SCH ×6 (02:00→23:00)
[2018-05-02] MEDS: MEROPENEM 500MG 500 MG in SODIUM CHLORIDE 0.9% 50ML 50 ML IV SCH ×6 (02:40→22:20)
[2018-05-02] MEDS: GUAIFENESIN 200 MG/10 ML UDC PO PRN (02:43)
[2018-05-02] MEDS: LINEZOLID 600 MG/D5W 300ML 300 ML IV SCH ×2 (05:06→16:59)
[2018-05-02] MEDS: PANTOPRAZOLE SOD 40 MG TABEC PO SCH (07:30)
[2018-05-02] MEDS: INSULIN LISPRO 100 UNIT/1 ML 3ML VIAL SQ SCH ×4 (07:30→21:56)
[2018-05-02] MEDS: LOSARTAN POTASSIUM 100 MG TAB PO SCH (09:00)
[2018-05-02] MEDS: METOPROLOL SUCCINATE 25 MG TAB XL PO SCH ×2 (09:00→16:59)
[2018-05-02] MEDS: BENZONATATE 100 MG CAP PO SCH ×3 (09:00→21:57)
[2018-05-02] MEDS: AMLODIPINE BESYLATE 5 MG TAB PO SCH (09:00)
[2018-05-02] MEDS: ASPIRIN 81 MG ENTERIC COATED PO SCH (09:00)
[2018-05-02] MEDS: GUAIFENESIN 600 MG TAB PO SCH ×2 (09:00→16:59)
[2018-05-02] MEDS: INSULIN DETEMIR 100 UNIT/ML PEN SQ SCH (21:58)
[2018-05-03] VITALS (7 sets, daily range): BP systolic 121–148; BP diastolic 57–78
[2018-05-03] MEDS: HYDROCODONE/CHLORPHENIRAMINE 5 ML LIQCR PO PRN ×2 (01:52→23:06)
[2018-05-03] MEDS: ALBUTEROL/IPRATROPIUM 3 ML NEB NEB SCH ×6 (02:00→22:45)
[2018-05-03] MEDS: MEROPENEM 500MG 500 MG in SODIUM CHLORIDE 0.9% 50ML 50 ML IV SCH ×6 (02:07→21:35)
[2018-05-03] MEDS: LINEZOLID 600 MG/D5W 300ML 300 ML IV SCH ×2 (04:43→17:00)
[2018-05-03] MEDS: BENZONATATE 100 MG CAP PO SCH ×3 (06:57→21:33)
[2018-05-03] MEDS: INSULIN LISPRO 100 UNIT/1 ML 3ML VIAL SQ SCH ×4 (07:30→21:34)
[2018-05-03] MEDS: PANTOPRAZOLE SOD 40 MG TABEC PO SCH (07:30)
[2018-05-03] MEDS: AMLODIPINE BESYLATE 5 MG TAB PO SCH (09:00)
[2018-05-03] MEDS: LOSARTAN POTASSIUM 100 MG TAB PO SCH (09:00)
[2018-05-03] MEDS: GUAIFENESIN 600 MG TAB PO SCH ×2 (09:00→17:00)
[2018-05-03] MEDS: ASPIRIN 81 MG ENTERIC COATED PO SCH (09:00)
[2018-05-03] MEDS: METOPROLOL SUCCINATE 25 MG TAB XL PO SCH ×2 (09:00→17:00)
[2018-05-03] MEDS ORDERED: SODIUM CHLORIDE 0.9% 50ML 50 ML ONE (18:37)
[2018-05-03] MEDS: INSULIN DETEMIR 100 UNIT/ML PEN SQ SCH (21:35)
--- NOTE | 2018-05-04 00:43 | Progress Note ---
DATE: May 03, 2018 SUBJECTIVE: Patient seen and evaluated. I have discussed this with the nursing staff. He is actually having worsening hypoxemia, has not had significant improvement, remains on 6 liters as he desaturates rapidly on 4 liters. States he is coughing a little bit more. His x-ray actually showed persistent infiltrates few days ago. Clinically, he does not appear to be toxic. CURRENT MEDICATIONS: He is on linezolid and meropenem. His noted. PHYSICAL EXAMINATION: VITAL SIGNS: Temperature is 97.9, pulse rate 94, blood pressure 131/64, respirations 19, SpO2 is 91. GENERAL: Reveals elderly male, obese, in bed, does not appear in significant distress. HEENT: Anicteric sclerae. Oral mucosa moist. NECK: Appears supple. CVS: S1 and S2 heard. RESPIRATORY: Crackles. ABDOMEN: Soft. He is protuberant. EXTREMITIES: Has no cyanosis, no clubbing. LABS: Sodium is 141, potassium 3.2, chloride 104, CO2 is 27, BUN is 8, creatinine 0.91. WBC 3.25, hemoglobin 9.8, hematocrit 31, platelets 141,000. IMPRESSION: 1. Acute hypoxemic respiratory failure. 2. Multifocal pneumonia. 3. Morbid obesity. 4. Obstructive sleep apnea. PLAN: Continue patient on IV antibiotics, I will go ahead and add prednisone. He has not had any significant improvement. He continues to be severely hypoxemic and does not seem to be coming down on the FiO2. Long-term acute care facility has been denied by insurance company. I suspect he might have been developing organizing pneumonia secondary to his dense consolidation and will treat with steroids duration of time to see if there is improvement in those infiltrates and his hypoxemia. Job#: [id number]
[2018-05-04 00:54] VITALS: BP 135/61
[2018-05-04] MEDS: MEROPENEM 500MG 500 MG in SODIUM CHLORIDE 0.9% 50ML 50 ML IV SCH ×6 (01:31→22:30)
[2018-05-04] MEDS: ALBUTEROL/IPRATROPIUM 3 ML NEB NEB SCH ×6 (02:00→23:00)
[2018-05-04] MEDS: LINEZOLID 600 MG/D5W 300ML 300 ML IV SCH ×2 (04:06→16:49)
[2018-05-04 04:35] LABS: BASOPHILS % 0.4 % (0.0-1.0); EOSINOPHILS # (AUTO) 0.1 (0.0-0.4); EOSINOPHILS % 4.2 % (0.0-6.0); HEMATOCRIT 32.1 % (38.2-49.6); LYMPHOCYTES # (AUTO) 0.8 (1.0-3.2); LYMPHOCYTES % 30.3 % (18.0-39.1); MEAN CORPUSCULAR HEMOGLOBIN 30.6 pg (28-32); MEAN CORPUSCULAR HGB CONC 31.2 g/dL (31-35); MEAN CORPUSCULAR VOLUME 98.2 fL (81-99); MONOCYTES # (AUTO) 0.3 (0.2-0.8); MONOCYTES % 9.5 % (4.4-11.3); NEUTROPHILS # (AUTO) 1.5 (2.1-6.9); NEUTROPHILS % 55.2 % (38.7-80.0); PLATELET COUNT 121 x10e3/uL (140-360); RED BLOOD COUNT 3.27 x10e6/uL (4.3-5.7); RED CELL DISTRIBUTION WIDTH 13.4 % (11.7-14.4)
[2018-05-04 05:07] LABS: ANION GAP 12.5 mmol/L (8-16); BLOOD UREA NITROGEN 9 mg/dL (7-26); BUN/CREATININE RATIO 11 (6-25); CALCIUM 9.1 mg/dL (8.4-10.2); CARBON DIOXIDE 28 mmol/L (22-29); CHLORIDE 104 mmol/L (98-107); CREATININE, SERUM 0.83 mg/dL (0.72-1.25); EST GLOMERULAR FILTRATION RATE > 60 ML/MIN (60-); GLUCOSE 109 mg/dL (74-118); POTASSIUM 3.5 mmol/L (3.5-5.1); SODIUM 141 mmol/L (136-145)
[2018-05-04] MEDS: BENZONATATE 100 MG CAP PO SCH ×3 (06:06→22:30)
[2018-05-04 06:45] VITALS: BP 139/61
[2018-05-04 08:00] VITALS: BP_SYST 140; BP_SYST 157; BP_DIAS 71; BP_DIAS 72
[2018-05-04] MEDS: AMLODIPINE BESYLATE 5 MG TAB PO SCH (08:10)
[2018-05-04] MEDS: LOSARTAN POTASSIUM 100 MG TAB PO SCH (08:10)
[2018-05-04] MEDS: GUAIFENESIN 600 MG TAB PO SCH ×2 (08:10→16:49)
[2018-05-04] MEDS: PREDNISONE 20 MG TAB PO SCH (08:10)
[2018-05-04] MEDS: ASPIRIN 81 MG ENTERIC COATED PO SCH (08:10)
[2018-05-04] MEDS: PANTOPRAZOLE SOD 40 MG TABEC PO SCH (08:10)
[2018-05-04] MEDS: INSULIN LISPRO 100 UNIT/1 ML 3ML VIAL SQ SCH ×4 (08:10→22:30)
[2018-05-04] MEDS: METOPROLOL SUCCINATE 25 MG TAB XL PO SCH ×2 (08:10→16:50)
[2018-05-04 12:00] VITALS: BP 143/73
[2018-05-04 16:00] VITALS: BP 175/87
[2018-05-04 21:00] VITALS: BP 146/65
[2018-05-04] MEDS: INSULIN DETEMIR 100 UNIT/ML PEN SQ SCH (22:30)
[2018-05-04] MEDS ORDERED: SODIUM CHLORIDE 0.9% 250ML 250 ML ONE (22:43)
[2018-05-04] MEDS: HYDROCODONE/CHLORPHENIRAMINE 5 ML LIQCR PO PRN (22:52)
[2018-05-05] MEDS: MEROPENEM 500MG 500 MG in SODIUM CHLORIDE 0.9% 50ML 50 ML IV SCH ×6 (02:00→22:28)
[2018-05-05] MEDS: ALBUTEROL/IPRATROPIUM 3 ML NEB NEB SCH ×6 (02:00→23:00)
[2018-05-05] MEDS: LINEZOLID 600 MG/D5W 300ML 300 ML IV SCH ×2 (04:34→18:15)
[2018-05-05] MEDS: BENZONATATE 100 MG CAP PO SCH ×3 (06:35→22:28)
[2018-05-05] MEDS: INSULIN LISPRO 100 UNIT/1 ML 3ML VIAL SQ SCH ×4 (07:30→22:00)
[2018-05-05 08:00] VITALS: BP 129/60
[2018-05-05] MEDS: GUAIFENESIN 600 MG TAB PO SCH ×2 (08:22→18:15)
[2018-05-05] MEDS: LOSARTAN POTASSIUM 100 MG TAB PO SCH (08:22)
[2018-05-05] MEDS: AMLODIPINE BESYLATE 5 MG TAB PO SCH (08:22)
[2018-05-05] MEDS: PANTOPRAZOLE SOD 40 MG TABEC PO SCH (08:22)
[2018-05-05] MEDS: METOPROLOL SUCCINATE 25 MG TAB XL PO SCH ×2 (08:22→18:15)
[2018-05-05] MEDS: ASPIRIN 81 MG ENTERIC COATED PO SCH (08:22)
[2018-05-05] MEDS: PREDNISONE 20 MG TAB PO SCH (08:22)
[2018-05-05] MEDS: FUROSEMIDE INJ 10 MG/ML 4 ML VIAL IV SCH ×2 (09:48→22:28)
[2018-05-05 12:00] VITALS: BP 121/61
--- NOTE | 2018-05-05 12:25 | Diagnostic Imaging Report ---
PROCEDURE: X-RAY CHEST, TWO VIEWS COMPARISON: [facility], CT, CT CHEST WO, 04/29/2018, 10:11. INDICATIONS: SHORTNESS OF BREATH, PNEUMONIA FINDINGS: LUNGS: Changes of multifocal pneumonia with opacities in the left upper lobe, left lower lobe and the right lower lobe. PLEURA: No effusions or pneumothorax. HEART \T\ MEDIASTINUM: The cardiac silhouette is prominent. Sternotomy sutures and mediastinal clips are present. BONES \T\ SOFT TISSUES: No acute findings. CONCLUSION: Changes of multifocal pneumonia. Colby Carreon D.O. Dictated by: Colby Carreon D.O. on 05/05/2018 at 12:31 Electronically approved by: Colby Carreon D.O. on 05/05/2018 at 12:31
[2018-05-05 16:00] VITALS: BP 143/63
[2018-05-05] MEDS ORDERED: POTASSIUM CHLORIDE 10 MEQ TABCR PO NR (16:00)
[2018-05-05 20:00] VITALS: BP 110/58
[2018-05-05 21:00] VITALS: BP 110/58
[2018-05-05] MEDS: INSULIN DETEMIR 100 UNIT/ML PEN SQ SCH (22:00)
[2018-05-05] MEDS: HYDROCODONE/CHLORPHENIRAMINE 5 ML LIQCR PO PRN (22:28)
[2018-05-06] VITALS (8 sets, daily range): BP systolic 111–143; BP diastolic 57–89
[2018-05-06] MEDS: MEROPENEM 500MG 500 MG in SODIUM CHLORIDE 0.9% 50ML 50 ML IV SCH ×5 (02:00→17:50)
[2018-05-06] MEDS: ALBUTEROL/IPRATROPIUM 3 ML NEB NEB SCH ×6 (02:00→23:10)
[2018-05-06] MEDS: LINEZOLID 600 MG/D5W 300ML 300 ML IV SCH (04:35)
[2018-05-06 05:04] LABS: ANION GAP 15.8 mmol/L (8-16); BLOOD UREA NITROGEN 12 mg/dL (7-26); BUN/CREATININE RATIO 14 (6-25); CALCIUM 9.2 mg/dL (8.4-10.2); CARBON DIOXIDE 28 mmol/L (22-29); CHLORIDE 103 mmol/L (98-107); CREATININE, SERUM 0.83 mg/dL (0.72-1.25); EST GLOMERULAR FILTRATION RATE > 60 ML/MIN (60-); GLUCOSE 94 mg/dL (74-118); MAGNESIUM 1.7 MG/DL (1.3-2.1); POTASSIUM 3.8 mmol/L (3.5-5.1); SODIUM 143 mmol/L (136-145)
[2018-05-06] MEDS: POTASSIUM CHLORIDE 10 MEQ TABCR PO SCH ×2 (06:35→17:09)
[2018-05-06] MEDS: BENZONATATE 100 MG CAP PO SCH ×3 (06:35→21:08)
[2018-05-06] MEDS: INSULIN LISPRO 100 UNIT/1 ML 3ML VIAL SQ SCH ×4 (07:30→21:09)
[2018-05-06] MEDS: PANTOPRAZOLE SOD 40 MG TABEC PO SCH (07:30)
[2018-05-06] MEDS: LOSARTAN POTASSIUM 100 MG TAB PO SCH (09:00)
[2018-05-06] MEDS: METOPROLOL SUCCINATE 25 MG TAB XL PO SCH ×2 (09:00→17:00)
[2018-05-06] MEDS: GUAIFENESIN 600 MG TAB PO SCH ×2 (09:00→17:00)
[2018-05-06] MEDS: PREDNISONE 20 MG TAB PO SCH (09:00)
[2018-05-06] MEDS: ASPIRIN 81 MG ENTERIC COATED PO SCH (09:00)
[2018-05-06] MEDS: AMLODIPINE BESYLATE 5 MG TAB PO SCH (09:00)
[2018-05-06] MEDS: FUROSEMIDE INJ 10 MG/ML 4 ML VIAL IV SCH ×2 (09:00→21:00)
--- NOTE | 2018-05-06 19:13 | Consultation ---
DATE OF CONSULTATION: May 06, 2018 CARDIAC CONSULTATION REASON FOR CONSULTATION: Hypoxemia, debility, coronary artery disease, and possible volume overload. HISTORY: A 72-year-old gentleman who came to this institution on April 15, 2018, with a few days duration of fever, cough, chills, and septic. He was very ill. He was seen by his PCP. His saturation was very low in the 80s. He was sent to the ER. Started on antibiotics. Despite very aggressive antibiotic therapy, the patient continued to be ill for several days. CT scan showed multifocal pneumonia. His antibiotics were changed. Vancomycin also given. He was on several courses of antibiotics. He continued to be not improving requiring oxygen. His saturation in the 90s at rest with high-flow oxygen. Suggestion of possible volume overload and possible localized pleural effusions. Cardiac consultation is obtained to evaluate the patient. Cardiac diaz, the patient is known with coronary artery disease. He had coronary artery bypass surgery in 1989 with redo in 2000. He is a diabetic. He is obese, hypertensive, hyperlipidemia with sleep apnea. Does have severe GERD. He had a prior history of carotid endarterectomy. He had knee surgery and low back surgery. He was maintained on medical therapy. He was doing relatively stable. REVIEW OF SYSTEMS GENERAL: Weakness. PULMONARY: Severe shortness of breath on minimal activity. Cough. Desaturating very easily. No pleuritic chest pain. No hemoptysis. HEENT: Remarkable for sore throat and "raw throat" from the cough. CARDIAC: No angina. No pericarditic chest pain. Sleep apnea. No orthopnea. GI: Poor appetite. Unable to the taste the food. Constipation. : Increased frequency of urination. NEUROMUSCULAR: Back pain and knee pain. General debility. His fever subsided, but he is very weak and he lost weight. SOCIAL HISTORY: He is . He is an ex-smoker. Stopped many, many years ago at that time of his first bypass. He is a social alcohol drinker. He is retired. CURRENT MEDICATIONS 1. Amlodipine 5 mg a day. 2. Aspirin 81 mg a day. 3. Metoprolol succinate 25 mg twice a day. 4. Lasix 40 mg twice a day. 5. Losartan 100 mg a day. 6. Potassium chloride 20 mEq twice a day. 7. Insulin sliding scale and insulin Levemir 15 units at bedtime. 8. Protonix. 9. Prednisone 20 mg a day. 10. Oxygen. 11. Benzonatate for cough. 12. Guaifenesin. ALLERGIES: NONE. PAST MEDICAL HISTORY: Summarized in the HPI. Please refer to that. FAMILY HISTORY: Positive for coronary artery disease. PHYSICAL EXAMINATION VITALS: Height 5 feet 7 inches, weight of 162 pounds. Blood pressure 130/80, heart rate of 90, respiratory rate of 18, temperature of 97.5 Fahrenheit. HEENT: Pupils are reactive. NECK: No elevation of jugular venous pulsation. CHEST: Decreased lung expansion. Scar of previous sternotomy is noted. HEART: PMI in the 5th left intercostal space. Normal 1st and 2nd heart sounds. ABDOMEN: Soft. There are good bowel sounds. EXTREMITIES: No cyanosis. No clubbing. No edema. NEUROLOGIC: Awake, alert and oriented. LAB DATA: Most recent electrolytes showed sodium of 143, potassium 3.8, BUN 12, creatinine 0.8. White blood cell count of 2.64, hemoglobin 10, hematocrit 32% with platelet count of 121,000. EKG showing normal sinus rhythm. PVCs noted. Nonspecific S/T changes. IMPRESSION AND PLAN 1. Multifocal pneumonia. 2. Severe hypoxemia. 3. Coronary artery disease, post coronary bypass surgery twice, latest in 2000. 4. Diabetes mellitus with end-organ damage. 5. Obesity. 6. Hypertension. 7. Hyperlipidemia. 8. Sleep apnea. 9. Gastroesophageal reflux disease. 10. History of carotid endarterectomy. 11. Possible pleural effusion. 12. Possible parapneumonic infection. Cardiac diaz, recommendation will be to check his lab again. Check BNP and echocardiogram ordered and not done. Will review it. Continue supportive care. Will follow the patient's progression with you. I would like to thank you for your kind referral. Job#: [id number] ZHANNA
[2018-05-06] MEDS: INSULIN DETEMIR 100 UNIT/ML PEN SQ SCH (21:10)
[2018-05-06] MEDS: HYDROCODONE/CHLORPHENIRAMINE 5 ML LIQCR PO PRN (22:29)
[2018-05-07] VITALS (9 sets, daily range): BP systolic 109–140; BP diastolic 55–76
[2018-05-07] MEDS: ALBUTEROL/IPRATROPIUM 3 ML NEB NEB SCH ×6 (04:00→23:10)
[2018-05-07 04:38] LABS: BASOPHILS % 0.6 % (0.0-1.0); EOSINOPHILS # (AUTO) 0.1 (0.0-0.4); EOSINOPHILS % 2.6 % (0.0-6.0); HEMATOCRIT 33.2 % (38.2-49.6); HEMOGLOBIN 10.6 g/dL (14.0-18.0); LYMPHOCYTES # (AUTO) 1.2 (1.0-3.2); LYMPHOCYTES % 34.5 % (18.0-39.1); MEAN CORPUSCULAR HEMOGLOBIN 31.2 pg (28-32); MEAN CORPUSCULAR HGB CONC 31.9 g/dL (31-35); MEAN CORPUSCULAR VOLUME 97.6 fL (81-99); MONOCYTES # (AUTO) 0.3 (0.2-0.8); MONOCYTES % 8.4 % (4.4-11.3); NEUTROPHILS # (AUTO) 1.9 (2.1-6.9); NEUTROPHILS % 53.6 % (38.7-80.0); PLATELET COUNT 93 x10e3/uL (140-360); RED CELL DISTRIBUTION WIDTH 13.5 % (11.7-14.4)
[2018-05-07 05:07] LABS: ALANINE AMINOTRANSFERASE 29 IU/L (0-55); ALBUMIN 2.9 g/dL (3.5-5.0); ALBUMIN/GLOBULIN RATIO 0.7 (0.8-2.0); ALKALINE PHOSPHATASE 110 IU/L (40-150); ANION GAP 15.8 mmol/L (8-16); BLOOD UREA NITROGEN 15 mg/dL (7-26); BUN/CREATININE RATIO 19 (6-25); CALCIUM 9.1 mg/dL (8.4-10.2); CARBON DIOXIDE 28 mmol/L (22-29); CHLORIDE 103 mmol/L (98-107); CREATININE, SERUM 0.81 mg/dL (0.72-1.25); EST GLOMERULAR FILTRATION RATE > 60 ML/MIN (60-); GLUCOSE 95 mg/dL (74-118); POTASSIUM 3.8 mmol/L (3.5-5.1); SODIUM 143 mmol/L (136-145)
[2018-05-07] MEDS: BENZONATATE 100 MG CAP PO SCH ×3 (06:20→21:00)
[2018-05-07] MEDS: POTASSIUM CHLORIDE 10 MEQ TABCR PO SCH ×2 (06:21→17:35)
[2018-05-07] MEDS: INSULIN LISPRO 100 UNIT/1 ML 3ML VIAL SQ SCH ×4 (07:30→20:59)
[2018-05-07] MEDS: PANTOPRAZOLE SOD 40 MG TABEC PO SCH (07:30)
[2018-05-07] MEDS: AMLODIPINE BESYLATE 5 MG TAB PO SCH (09:00)
[2018-05-07] MEDS: FUROSEMIDE INJ 10 MG/ML 4 ML VIAL IV SCH ×2 (09:00→17:34)
[2018-05-07] MEDS: METOPROLOL SUCCINATE 25 MG TAB XL PO SCH ×2 (09:00→17:00)
[2018-05-07] MEDS: PREDNISONE 20 MG TAB PO SCH (09:00)
[2018-05-07] MEDS: GUAIFENESIN 600 MG TAB PO SCH ×2 (09:00→17:00)
[2018-05-07] MEDS: LOSARTAN POTASSIUM 100 MG TAB PO SCH (09:00)
[2018-05-07] MEDS: ASPIRIN 81 MG ENTERIC COATED PO SCH (09:00)
[2018-05-07] MEDS: LINEZOLID 600 MG/D5W 300ML 300 ML IV SCH ×2 (10:45→22:28)
[2018-05-07] MEDS: MEROPENEM 500MG 500 MG in SODIUM CHLORIDE 0.9% 50ML 50 ML IV SCH ×2 (14:00→21:06)
[2018-05-07] MEDS: INSULIN DETEMIR 100 UNIT/ML PEN SQ SCH (21:00)
[2018-05-07] MEDS: HYDROCODONE/CHLORPHENIRAMINE 5 ML LIQCR PO PRN (22:28)
[2018-05-08] VITALS (9 sets, daily range): BP systolic 117–137; BP diastolic 57–67
[2018-05-08] MEDS: ALBUTEROL/IPRATROPIUM 3 ML NEB NEB SCH ×7 (03:02→23:10)
[2018-05-08 05:10] LABS: ANION GAP 15.5 mmol/L (8-16); BLOOD UREA NITROGEN 16 mg/dL (7-26); BUN/CREATININE RATIO 19 (6-25); CALCIUM 9.1 mg/dL (8.4-10.2); CARBON DIOXIDE 30 mmol/L (22-29); CHLORIDE 100 mmol/L (98-107); CREATININE, SERUM 0.84 mg/dL (0.72-1.25); EST GLOMERULAR FILTRATION RATE > 60 ML/MIN (60-); GLUCOSE 102 mg/dL (74-118); MAGNESIUM 1.5 MG/DL (1.3-2.1); POTASSIUM 3.5 mmol/L (3.5-5.1); SODIUM 142 mmol/L (136-145)
[2018-05-08] MEDS: FUROSEMIDE INJ 10 MG/ML 4 ML VIAL IV SCH ×2 (05:43→17:15)
[2018-05-08] MEDS: BENZONATATE 100 MG CAP PO SCH ×3 (05:47→22:15)
[2018-05-08] MEDS: POTASSIUM CHLORIDE 10 MEQ TABCR PO SCH ×2 (05:47→17:17)
[2018-05-08] MEDS: MEROPENEM 500MG 500 MG in SODIUM CHLORIDE 0.9% 50ML 50 ML IV SCH (06:20)
[2018-05-08] MEDS: INSULIN LISPRO 100 UNIT/1 ML 3ML VIAL SQ SCH ×4 (07:30→21:00)
[2018-05-08] MEDS: LINEZOLID 600 MG/D5W 300ML 300 ML IV SCH ×2 (09:39→22:45)
[2018-05-08] MEDS: PANTOPRAZOLE SOD 40 MG TABEC PO SCH (09:39)
[2018-05-08] MEDS: AMLODIPINE BESYLATE 5 MG TAB PO SCH (09:39)
[2018-05-08] MEDS: METOPROLOL SUCCINATE 25 MG TAB XL PO SCH ×2 (09:39→17:14)
[2018-05-08] MEDS: ASPIRIN 81 MG ENTERIC COATED PO SCH (09:39)
[2018-05-08] MEDS: PREDNISONE 20 MG TAB PO SCH (09:39)
[2018-05-08] MEDS: GUAIFENESIN 600 MG TAB PO SCH ×2 (09:39→17:14)
[2018-05-08] MEDS: LOSARTAN POTASSIUM 100 MG TAB PO SCH (09:39)
[2018-05-08] MEDS ORDERED: POTASSIUM CHLORIDE 20 MEQ TAB CR PO STA (09:53)
[2018-05-08] MEDS ORDERED: MAGNESIUM OXIDE 400 MG TAB PO ONE (10:00)
[2018-05-08] MEDS: MEROPENEM 500 MG VIAL IV SCH ×2 (14:15→22:15)
--- NOTE | 2018-05-08 15:14 | Consultation ---
DATE OF CONSULTATION: April 16, 2018. HISTORY OF PRESENT ILLNESS: This is a 72-year-old gentleman with a history of hypertension, diabetes mellitus, coronary artery disease, CABG, obesity. The patient comes in to the hospital with shortness of breath, fever, cough productive. The patient has been sick for a few days. Patient has a history of hypertension, diabetes mellitus, obstructive sleep apnea, coronary artery disease, gastroesophageal reflux disease, carotid endarterectomy, lumbar spine surgery, knee surgery, coronary artery bypass. Patient was admitted and infectious disease was consulted as already deemed by pulmonary. REVIEW OF SYSTEMS HEENT: There is no headache, visual changes, hearing changes. GI: There is no nausea. No vomiting. No diarrhea. CARDIAC: There is no arrhythmia or chest pain. NEURO: No seizure activity or local weakness. JOINT: There was chronic aches and pain, but nothing unusual recently. . SOCIAL HISTORY: There is no drug abuse. He used to smoke, but he quit about several years ago in 1979. He used to smoke 3 packs a day for 24 years. FAMILY HISTORY: Coronary artery disease. ALLERGIES: NKA. PHYSICAL EXAMINATION GENERAL: He is currently alert, oriented. Does not seem to be in acute distress. VITALS: Stable, currently afebrile. HEENT: He does not appear icteric. NECK: Supple. CHEST: Few crackles, coarse. ABDOMEN: Soft. Bowel sounds present. No tenderness. IMPRESSION AND PLAN: Pneumonia, community acquired in a patient who has complicated medical history as above. Agree with the current choice of IV antibiotic. Agree with blood cultures, urine cultures, and sputum cultures. We will follow with you. Further recommendations to follow. Job#: [id number] RTVel
[2018-05-08] MEDS: INSULIN DETEMIR 100 UNIT/ML PEN SQ SCH (21:00)
[2018-05-08] MEDS ORDERED: SODIUM CHLORIDE 0.9% 250ML 250 ML ONE (22:25)
[2018-05-08] MEDS: HYDROCODONE/CHLORPHENIRAMINE 5 ML LIQCR PO PRN (22:59)
[2018-05-09] VITALS (7 sets, daily range): BP systolic 118–166; BP diastolic 58–72
[2018-05-09] MEDS: ALBUTEROL/IPRATROPIUM 3 ML NEB NEB SCH ×5 (03:12→19:22)
[2018-05-09 06:03] LABS: ANION GAP 14.8 mmol/L (8-16); BLOOD UREA NITROGEN 22 mg/dL (7-26); BUN/CREATININE RATIO 23 (6-25); CALCIUM 9.4 mg/dL (8.4-10.2); CARBON DIOXIDE 33 mmol/L (22-29); CHLORIDE 96 mmol/L (98-107); CREATININE, SERUM 0.95 mg/dL (0.72-1.25); EST GLOMERULAR FILTRATION RATE > 60 ML/MIN (60-); GLUCOSE 116 mg/dL (74-118); MAGNESIUM 1.6 MG/DL (1.3-2.1); POTASSIUM 3.8 mmol/L (3.5-5.1); SODIUM 140 mmol/L (136-145)
[2018-05-09] MEDS: POTASSIUM CHLORIDE 10 MEQ TABCR PO SCH ×2 (06:30→17:02)
[2018-05-09] MEDS: FUROSEMIDE INJ 10 MG/ML 4 ML VIAL IV SCH ×2 (06:30→17:02)
[2018-05-09] MEDS: BENZONATATE 100 MG CAP PO SCH ×3 (06:30→21:23)
[2018-05-09] MEDS: MEROPENEM 500 MG VIAL IV SCH ×3 (06:30→21:23)
[2018-05-09] MEDS: INSULIN LISPRO 100 UNIT/1 ML 3ML VIAL SQ SCH ×4 (08:00→21:00)
[2018-05-09] MEDS: METOPROLOL SUCCINATE 25 MG TAB XL PO SCH ×2 (09:15→17:01)
[2018-05-09] MEDS: PANTOPRAZOLE SOD 40 MG TABEC PO SCH (09:15)
[2018-05-09] MEDS: PREDNISONE 20 MG TAB PO SCH (09:15)
[2018-05-09] MEDS: LOSARTAN POTASSIUM 100 MG TAB PO SCH (09:15)
[2018-05-09] MEDS: GUAIFENESIN 600 MG TAB PO SCH ×2 (09:15→17:01)
[2018-05-09] MEDS: ASPIRIN 81 MG ENTERIC COATED PO SCH (09:15)
[2018-05-09] MEDS: AMLODIPINE BESYLATE 5 MG TAB PO SCH (09:15)
[2018-05-09] MEDS: LINEZOLID 600 MG/D5W 300ML 300 ML IV SCH ×2 (09:30→22:03)
--- NOTE | 2018-05-09 13:57 | Progress Note ---
DATE: May 09, 2018 SUBJECTIVE: Patient is still on nasal cannula and will desat upon ambulation. He continues to be on antibiotics and steroids. The patient was sitting in the [place] with no other complaints at this time. OBJECTIVE VITAL SIGNS: Temperature is 97.4, pulse 87, respiratory rate 18, blood pressure 166/72, pulse ox is 100% on 5 L nasal cannula. GENERAL: Not in acute distress. Alert and oriented times 3. Cooperative on examination. HEENT: Head is normocephalic and atraumatic. Eyes: Pupils equal, round and reactive to light bilaterally. Extraocular movements intact bilaterally. NECK: Supple. Good range of motion. Throat with no evidence of any erythema or exudates in the posterior pharynx. Has poor dentition. PULMONARY: Decreased breath sounds bilaterally. Fine crackles appreciated. No rales. No rhonchi. Good inspiratory effort. CARDIOVASCULAR: Positive S1 and S2. No murmurs, rubs or gallops appreciated. ABDOMEN: Soft, nondistended and nontender to palpation. Bowel sounds present. MUSCULOSKELETAL: Strength is 5/5 throughout. No evidence of any muscle deficit on examination. No weakness appreciated. NEUROLOGICAL: Cranial nerves II-XII are grossly intact. No evidence of any neurological deficits on exam. SKIN: Intact. Warm to touch. Good cap refill. PSYCHIATRIC: Normal affect and mood. EXTREMITIES: No edema. Good range of motion throughout. LAB FINDINGS: Show a white count of 3.4, hemoglobin 7.6, hematocrit 33, and platelets of 93,000. Coagulation: PT 16, INR 1.4. Chemistry: Sodium 140, potassium 3.8, chloride 96, bicarb 33, anion gap 14, BUN 22, creatinine 0.95. Glucose is 116. Urine legionella was negative. MICROBIOLOGY: Blood cultures were negative. Sputum cultures were negative. Urine cultures were negative. IMAGING STUDIES: Chest x-ray performed on May 05, 2018, shows changes of multifocal pneumonia. IMPRESSION 1. Multifocal pneumonia. 2. Morbidly obese. 3. Type 2 diabetes. 4. Hypertension. 5. History of chronic obstructive pulmonary disease. 6. Pancytopenia. PLAN: At this time, continue with IV antibiotics. Blood, urine and sputum cultures were found to be negative. Pulmonary and ID are following. Cardiology was also consulted, and will follow with their recommendations. Continue with antibiotics, steroids and IV diuretics. Continue with same plan of care. The patient will likely be here through the weekend because he is still on oxygen. Job#: [id number] RI
[2018-05-09] MEDS: INSULIN DETEMIR 100 UNIT/ML PEN SQ SCH (21:00)
[2018-05-09] MEDS: HYDROCODONE/CHLORPHENIRAMINE 5 ML LIQCR PO PRN (23:31)
[2018-05-10] VITALS (7 sets, daily range): BP systolic 124–147; BP diastolic 56–66
[2018-05-10] MEDS: ALBUTEROL/IPRATROPIUM 3 ML NEB NEB SCH ×6 (03:35→22:50)
[2018-05-10] MEDS: FUROSEMIDE INJ 10 MG/ML 4 ML VIAL IV SCH ×2 (05:35→17:27)
[2018-05-10] MEDS: MEROPENEM 500 MG VIAL IV SCH ×3 (05:35→22:00)
[2018-05-10] MEDS: POTASSIUM CHLORIDE 10 MEQ TABCR PO SCH ×2 (05:36→17:28)
[2018-05-10] MEDS: BENZONATATE 100 MG CAP PO SCH ×3 (05:36→22:00)
[2018-05-10] MEDS: INSULIN LISPRO 100 UNIT/1 ML 3ML VIAL SQ SCH ×4 (07:30→21:00)
[2018-05-10] MEDS: LOSARTAN POTASSIUM 100 MG TAB PO SCH (08:05)
[2018-05-10] MEDS: PANTOPRAZOLE SOD 40 MG TABEC PO SCH (08:05)
[2018-05-10] MEDS: AMLODIPINE BESYLATE 5 MG TAB PO SCH (08:05)
[2018-05-10] MEDS: ASPIRIN 81 MG ENTERIC COATED PO SCH (08:05)
[2018-05-10] MEDS: PREDNISONE 20 MG TAB PO SCH (08:05)
[2018-05-10] MEDS: METOPROLOL SUCCINATE 25 MG TAB XL PO SCH ×2 (08:05→17:27)
[2018-05-10] MEDS: GUAIFENESIN 600 MG TAB PO SCH ×2 (08:05→17:27)
[2018-05-10] MEDS: LINEZOLID 600 MG/D5W 300ML 300 ML IV SCH ×2 (11:00→22:00)
--- NOTE | 2018-05-10 13:32 | Progress Note ---
DATE: May 10, 2018 I am covering for Dr. Mcfadden. SUBJECTIVE: The patient is sitting in the [place] with no complaints. He is on nasal cannula. No other issues. Still on antibiotics and steroids. OBJECTIVE VITAL SIGNS: Temperature 96, pulse 96, respiratory rate 20, blood pressure 147/66, pulse ox 98% on 5 L nasal cannula. GENERAL: Not in acute distress. Alert and oriented times 3. Cooperative on examination. HEENT: Head is normocephalic and atraumatic. Eyes: Pupils equal, round and reactive to light bilaterally. Extraocular movements intact bilaterally. NECK: Supple. Good range of motion. Throat with no evidence of any erythema or exudates in the posterior pharynx. Has poor dentition. PULMONARY: Has expiratory wheezing appreciated bilaterally. No crackles. No rales. No rhonchi. CARDIOVASCULAR: Positive S1 and S2. No murmurs, rubs or gallops appreciated. ABDOMEN: Soft, nondistended and nontender to palpation. Bowel sounds present. MUSCULOSKELETAL: Strength is 5/5 throughout. No evidence of any muscle deficit on examination. No weakness appreciated. NEUROLOGICAL: Cranial nerves II-XII are grossly intact. No evidence of any neurological deficits on exam. SKIN: Intact. Warm to touch. Good cap refill. PSYCHIATRIC: Normal affect and mood. EXTREMITIES: No edema. Good range of motion throughout. LAB FINDINGS: None. IMAGING STUDIES: None. MICROBIOLOGY: None. IMPRESSION 1. Multifocal pneumonia. 2. Morbidly obese. 3. Type 2 diabetes. 4. Hypertension. 5. History of chronic obstructive pulmonary disease. 6. Pancytopenia. PLAN: At this time, continue with antibiotics and neb treatments. All cultures were found to be negative. Pulmonary and ID are following. No further recommendations needed by cardiology. The plan is to send the patient likely to LTAC. If denied, he will end up going home. Dr. Mcfadden will be available tomorrow to discuss further plan of care. Job#: [id number] ZHANNA
--- NOTE | 2018-05-10 13:50 | Progress Note ---
DATE: Mr. Watters is doing better today. There is no new complaint. His shortness of breath is better. His cough is better. REVIEW OF SYSTEMS: Otherwise unremarkable. PHYSICAL EXAMINATION GENERAL: He is currently alert and oriented. Does not seem in acute distress. VITALS: Stable. Currently afebrile. HEENT: He is not icteric. NECK: Supple. CHEST: Clear. CORE: S1 and S2. No murmurs. ABDOMEN: Soft. Bowel sounds present. No tenderness. EXTREMITIES: No edema. SKIN: No rash. IMPRESSION 1. Pneumonia. 2. Fluid overload/congestive heart failure. 3. Obesity. 4. Diabetes mellitus. 5. Sleep apnea. 6. Atherosclerotic coronary disease. The patient seems to be getting better slowly. Finish 8 days of the current choice of antibiotics of linezolid and meropenem. Discharge home Friday from infectious disease point of view. Job#: [id number] ZHANNA
[2018-05-10] MEDS: INSULIN DETEMIR 100 UNIT/ML PEN SQ SCH (21:00)
[2018-05-11] VITALS (10 sets, daily range): BP systolic 115–142; BP diastolic 56–66
[2018-05-11] MEDS: ALBUTEROL/IPRATROPIUM 3 ML NEB NEB SCH ×6 (03:02→23:07)
[2018-05-11] MEDS: INSULIN LISPRO 100 UNIT/1 ML 3ML VIAL SQ SCH ×4 (07:30→21:45)
[2018-05-11] MEDS: PANTOPRAZOLE SOD 40 MG TABEC PO SCH (07:30)
[2018-05-11] MEDS: ASPIRIN 81 MG ENTERIC COATED PO SCH (08:52)
[2018-05-11] MEDS: LOSARTAN POTASSIUM 100 MG TAB PO SCH (08:52)
[2018-05-11] MEDS: AMLODIPINE BESYLATE 5 MG TAB PO SCH (08:53)
[2018-05-11] MEDS: METOPROLOL SUCCINATE 25 MG TAB XL PO SCH ×2 (08:53→16:36)
[2018-05-11] MEDS: GUAIFENESIN 600 MG TAB PO SCH ×2 (08:53→16:36)
[2018-05-11] MEDS: LINEZOLID 600 MG/D5W 300ML 300 ML IV SCH ×2 (10:45→22:45)
[2018-05-11] MEDS: FUROSEMIDE 40 MG TAB PO SCH (12:00)
[2018-05-11] MEDS: MEROPENEM 500 MG VIAL IV SCH ×2 (13:49→21:45)
[2018-05-11] MEDS: BENZONATATE 100 MG CAP PO SCH ×2 (13:49→21:44)
[2018-05-11] MEDS: POTASSIUM CHLORIDE 10 MEQ TABCR PO SCH (18:00)
[2018-05-11] MEDS: INSULIN DETEMIR 100 UNIT/ML PEN SQ SCH (21:45)
[2018-05-11] MEDS: HYDROCODONE/CHLORPHENIRAMINE 5 ML LIQCR PO PRN (22:45)
[2018-05-12] VITALS (7 sets, daily range): BP systolic 119–143; BP diastolic 56–63
[2018-05-12] MEDS: ALBUTEROL/IPRATROPIUM 3 ML NEB NEB SCH ×6 (03:04→22:15)
[2018-05-12 04:36] LABS: BASOPHILS # (AUTO) 0.1 (0.0-0.1); EOSINOPHILS # (AUTO) 0.4 (0.0-0.4); EOSINOPHILS % 8.6 % (0.0-6.0); HEMATOCRIT 36.7 % (38.2-49.6); HEMOGLOBIN 11.8 g/dL (14.0-18.0); LYMPHOCYTES # (AUTO) 1.5 (1.0-3.2); LYMPHOCYTES % 29.3 % (18.0-39.1); MEAN CORPUSCULAR HEMOGLOBIN 31.1 pg (28-32); MEAN CORPUSCULAR HGB CONC 32.2 g/dL (31-35); MEAN CORPUSCULAR VOLUME 96.6 fL (81-99); MONOCYTES # (AUTO) 0.5 (0.2-0.8); MONOCYTES % 9.4 % (4.4-11.3); NEUTROPHILS # (AUTO) 2.6 (2.1-6.9); NEUTROPHILS % 51.3 % (38.7-80.0); PLATELET COUNT 89 x10e3/uL (140-360); RED CELL DISTRIBUTION WIDTH 13.4 % (11.7-14.4)
[2018-05-12 05:00] LABS: ANION GAP 16.3 mmol/L (8-16); BLOOD UREA NITROGEN 27 mg/dL (7-26); BUN/CREATININE RATIO 24 (6-25); CALCIUM 9.4 mg/dL (8.4-10.2); CARBON DIOXIDE 30 mmol/L (22-29); CHLORIDE 96 mmol/L (98-107); CREATININE, SERUM 1.12 mg/dL (0.72-1.25); EST GLOMERULAR FILTRATION RATE > 60 ML/MIN (60-); GLUCOSE 149 mg/dL (74-118); POTASSIUM 4.3 mmol/L (3.5-5.1); SODIUM 138 mmol/L (136-145)
[2018-05-12] MEDS: BENZONATATE 100 MG CAP PO SCH ×3 (06:04→21:06)
[2018-05-12] MEDS: MEROPENEM 500 MG VIAL IV SCH ×3 (06:04→21:08)
[2018-05-12] MEDS: POTASSIUM CHLORIDE 10 MEQ TABCR PO SCH ×2 (06:04→18:00)
[2018-05-12] MEDS: INSULIN LISPRO 100 UNIT/1 ML 3ML VIAL SQ SCH ×4 (07:30→21:10)
[2018-05-12] MEDS: PANTOPRAZOLE SOD 40 MG TABEC PO SCH (07:30)
[2018-05-12] MEDS: FUROSEMIDE 40 MG TAB PO SCH ×2 (08:00→12:00)
[2018-05-12] MEDS: GUAIFENESIN 600 MG TAB PO SCH ×2 (09:00→16:58)
[2018-05-12] MEDS: LOSARTAN POTASSIUM 100 MG TAB PO SCH (09:00)
[2018-05-12] MEDS: AMLODIPINE BESYLATE 5 MG TAB PO SCH (09:00)
[2018-05-12] MEDS: ASPIRIN 81 MG ENTERIC COATED PO SCH (09:00)
[2018-05-12] MEDS: METOPROLOL SUCCINATE 25 MG TAB XL PO SCH ×2 (09:00→16:58)
[2018-05-12] MEDS: PREDNISONE 10 MG TAB PO SCH (09:00)
[2018-05-12] MEDS: LINEZOLID 600 MG/D5W 300ML 300 ML IV SCH ×2 (10:45→22:06)
[2018-05-12] MEDS ORDERED: METOLAZONE 5 MG TAB PO NR (12:30)
[2018-05-12] MEDS: INSULIN DETEMIR 100 UNIT/ML PEN SQ SCH (21:10)
--- NOTE | 2018-05-12 21:10 | Consultation ---
DATE OF CONSULTATION: May 12, 2018 REFERRING PHYSICIAN: Dr. Homer Mcfadden. I would like to thank Dr. Mcfadden for asking me to see Mr. Watters in consultation. REASON FOR CONSULTATION: 1. Debilitation secondary to pneumonia. 2. Decrease in O2 saturations and therapy. 3. Hypoxia respiratory failure. 4. Obesity. 5. COPD. HISTORY: First, I would like to thank Dr. Mcfadden for asking me to see Mr. Watters in consultation. The patient is a pleasant but unfortunate 72-year-old white male who was admitted to this facility with shortness of breath. The patient was diagnosed with pneumonia, and has been in the hospital for almost a month now. He is doing much better; however, he still desaturates and it is not yet safe to go home. He is stronger but he is still O2 dependent, which is not his baseline. I am being asked to evaluate for rehab needs. PAST MEDICAL HISTORY: Hypertension, diabetes, obesity, coronary artery disease. Patient with sleep apnea, reflux. PAST SURGICAL HISTORY: Lumbar spine surgery, right knee replacement. The patient had coronary artery bypass. SOCIAL HISTORY: He lives with his in a 2-story home. He is otherwise independent. Not O2 dependent, although he would use BiPAP at night time. HABITS: He used to smoke 3 packs a day for 24 years, but quit many years ago. FAMILY HISTORY: Coronary artery disease runs in the family. ALLERGIES: NO KNOWN DRUG ALLERGIES. REVIEW OF SYSTEMS: An 11-point review of systems as per the patient, he does fatigue at times, but before this he was pretty much independent and getting around fairly well. Review of therapy note shows that he walks about 150 feet without assist device, but he is on O2 via nasal cannula, even then his O2 sats decrease to below 85%. White cell count 5.02, hemoglobin 11.8, hematocrit 36.7, platelets 89,000. Sodium 138, potassium 4.3, BUN 27, creatinine 1.12. IMAGING: Chest x-ray demonstrates multifocal pneumonia changes. PHYSICAL EXAMINATION GENERAL: The patient is awake and alert, very pleasant, in no apparent distress at this time, follows commands without difficulty, sitting up in the chair. He is on O2 via nasal cannula, higher flow. HEART: Regular. LUNGS: He has some wheezing especially in the right lower lung field. ABDOMEN: Obese. NECK: No JVD. SENSORY: Denies any numbness or tingling in the hands, feet or face. MANUAL MUSCLE TESTING: Very strong in his arms and legs demonstrating 4+ to 5 strength in the arms and legs bilaterally. No focal deficits, however. He is on O2. equal bilaterally. No increased tone or passive range of motion of the arms and legs. IMPRESSION 1. Multifocal pneumonia. The patient is still on a liter of oxygen. He desaturates with activity to 84%. 2. Severe hypoxemia. 3. Coronary artery disease. 4. Arthritis. 5. Diabetes. 6. Hypertension. 7. Obesity. 8. Sleep apnea. 9. Reflux. PLAN: The patient, although he can walk longer distances, is not definitely not ready to go home. He needs more time, and also more therapy and practice in order to try to improve upon his functional levels. It has been over 3 weeks, almost 4 weeks now, with pneumonia. He still desaturates and is at higher risk and cannot of less than 10 setting, such as a skilled unit. Would need PT, OT and nursing as well as internal medicine and pulmonary demand, which is the situation so that he can actually go home and be safer at home. Regarding pulmonary, will check with insurance to see if they will allow me to give the patient rehab. Thank you once again for allowing me to participate in the care of this pleasant but unfortunate patient. Job#: [id number]
[2018-05-12] MEDS: HYDROCODONE/CHLORPHENIRAMINE 5 ML LIQCR PO PRN (22:06)
[2018-05-13 00:05] VITALS: BP 114/55
[2018-05-13] MEDS: ALBUTEROL/IPRATROPIUM 3 ML NEB NEB SCH ×4 (03:12→14:00)
[2018-05-13 04:10] VITALS: BP 130/58
[2018-05-13] MEDS: BENZONATATE 100 MG CAP PO SCH (06:52)
[2018-05-13] MEDS: MEROPENEM 500 MG VIAL IV SCH (06:52)
[2018-05-13] MEDS: POTASSIUM CHLORIDE 10 MEQ TABCR PO SCH (06:53)
[2018-05-13 08:00] VITALS: BP 139/63
[2018-05-13 08:15] VITALS: BP 139/63
[2018-05-13] MEDS: LOSARTAN POTASSIUM 100 MG TAB PO SCH (08:15)
[2018-05-13] MEDS: AMLODIPINE BESYLATE 5 MG TAB PO SCH (08:15)
[2018-05-13] MEDS: PANTOPRAZOLE SOD 40 MG TABEC PO SCH (08:15)
[2018-05-13] MEDS: METOPROLOL SUCCINATE 25 MG TAB XL PO SCH (08:15)
[2018-05-13] MEDS: PREDNISONE 10 MG TAB PO SCH (08:15)
[2018-05-13] MEDS: FUROSEMIDE 40 MG TAB PO SCH ×2 (08:15→11:45)
[2018-05-13] MEDS: ASPIRIN 81 MG ENTERIC COATED PO SCH (08:15)
[2018-05-13] MEDS: GUAIFENESIN 600 MG TAB PO SCH (08:15)
--- NOTE | 2018-05-13 10:07 | Discharge Summary ---
PCP: Dr. Kelly Baker CONSULTANTS: Dr. Karl Avalos, Dr. Dragan Kramer, Dr. Herrera Matthews and Dr. Denver Boyle. FINAL DIAGNOSES 1. Status post sepsis. 2. Multilobar pneumonia, severe. 3. Chronic obstructive pulmonary disease with acute exacerbation. 4. Acute hypoxia, much improved. 5. Electrolyte disorder, corrected. 6. Obesity. 7. Obstructive sleep apnea. 8. Hypertension. 9. History of coronary disease with previous bypass surgery. SUMMARY: Patient is a 72-year-old male who came in with severe hypoxia. The patient had multilobar pneumonia. He has acute hypoxia with respiratory failure and required BiPAP. He has also had hemoptysis and epistaxis along with coughing and wheezing. He received multiple treatments. He did have dehydration, which resolved. Thrombocytopenia much improved, but stabilized. The patient is with fluid overload due to fluid rehydration, but with Lasix he did better with the pleural effusion. He is maintaining on oxygen now at 4-5 L per minute. The patient is doing better. The patient's insurance denied long-term acute care approximately 2 weeks ago. Since then, the patient remained in the hospital for treatment. Repeat CT scan showed persistent consolidation. However, the patient is improving with his wheezing and shortness of breath. He still required oxygen. Multiple options were given to the patient, including acute rehab, which insurance entertained the approval previously. The patient is improving based on his physical therapy criteria. The patient does not qualify for rehab, but with his multiple medical problems, the patient may benefit for rehab. Discussed with the patient and spouse at length. The patient absolutely denied. The patient wants to go home absolutely. The hospital case briefer also encouraged the patient to go home as well, and did not encourage the patient to go to rehab as I suggested. The patient will now discharge home with oxygen support. He is stable to do so. My preference is rehab and the patient absolutely refused. The patient will go home with home health and on oxygen arrangement. He will need to follow up with Dr. Boyle next week. 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 Adjustment of his home medications are made. He will take: 1. Zyvox 600 mg twice a day for 7 days. 2. Nebulizer given. 3. Lasix 40 mg daily. 4. Potassium 10 mEq daily. 5. DuoNeb q.4 h. p.r.n. 6. Prednisone 10 mg daily. 7. Kassidy-Tussin AC 10 mL every 4-6 as needed for cough. The patient is otherwise stable. He again wants to go home and I will send the patient home per his request. Job#: [id number] RI
[2018-05-13] MEDS: LINEZOLID 600 MG/D5W 300ML 300 ML IV SCH (11:45)
[2018-05-13 12:00] VITALS: BP 115/56
== END 2018-05-13 15:24 | disposition home health service (06) | DRG 871 ==
LOC: ER 16:28 → ERHOLD 18:16 → IMCU 20:54 → OBSVTOIN 04-16 08:59 → MED/SURG2 04-16 09:56
PROVIDERS: ADMIT Internal Medicine; ATTEND Internal Medicine
DX: A41.9 Sepsis, unspecified organism (principal); J15.9 Unspecified bacterial pneumonia; J96.01 Acute respiratory failure with hypoxia; J44.0 Chronic obstructive pulmonary disease with (acute) lower respiratory infection; J44.1 Chronic obstructive pulmonary disease with (acute) exacerbation; N17.9 Acute kidney failure, unspecified; E87.2 Acidosis; D61.818 Other pancytopenia; R04.2 Hemoptysis; Z68.41 Body mass index [BMI] 40.0-44.9, adult; E87.1 Hypo-osmolality and hyponatremia; I13.0 Hypertensive heart and chronic kidney disease with heart failure and stage 1 through stage 4 chronic kidney disease, or unspecified chronic kidney disease; Z87.891 Personal history of nicotine dependence; I25.10 Atherosclerotic heart disease of native coronary artery without angina pectoris; Z95.1 Presence of aortocoronary bypass graft; E78.5 Hyperlipidemia, unspecified; K21.9 Gastro-esophageal reflux disease without esophagitis; G47.33 Obstructive sleep apnea (adult) (pediatric); R04.0 Epistaxis; E66.01 Morbid (severe) obesity due to excess calories; E11.65 Type 2 diabetes mellitus with hyperglycemia; E11.22 Type 2 diabetes mellitus with diabetic chronic kidney disease; N18.9 Chronic kidney disease, unspecified; I50.9 Heart failure, unspecified; J84.10 Pulmonary fibrosis, unspecified; R53.81 Other malaise; D63.8 Anemia in other chronic diseases classified elsewhere
CPT/HCPCS: 36415; 71046; 71250; 80048; 80053; 80202; 81001; 82308; 82550; 82553; 82948; 83735; 83880; 84484; 85025; 85610; 85730; 87040; 87070; 87086; 87205; 87449; 93005; 93306; 94640; 97139; 99284; G0378; J0456; J0696; J1650; J1940; J2020; J2185; J2543; J2920; J3370; J7050

== ENCOUNTER → 2018-06-16 | Outpatient (CLI) | payer MEDICARE ==
[~2018-06-16] MED LIST changes: +GLIMEPIRIDE4 MG; +IOPAMIDOL 370 MG/ML 200 ML INFUS..BTL INJ ONE; +JANUMET XR 50-1 EAC1; +NITROGLYCERIN0.4 MG; +NORCO 10-325 T1 EACH; +OMEPRAZOLE40 MG; +SODIUM CHLORIDE 0.9% 250ML 250 ML ONE; +SODIUM CHLORIDE 0.9% 500ML 500 ML ONE; +SODIUM CHLORIDE 0.9% 50ML 50 ML ONE
[2018-06-16 16:28] LABS: CREATININE, SERUM 1.45 mg/dL (0.72-1.25)
--- NOTE | 2018-06-17 13:00 | Diagnostic Imaging Report ---
EXAM: CT ABDOMEN/PELVIS W DATE: 06/16/2018 3:41 PM INDICATION: \S\[id number] \S\1720 \S\ENLARGED LYMPH NODES COMPARISON: None FINDINGS: Please see same day CT chest for details. IMPRESSION: As above. Signed by: Dr. Eliazar Gaitan MD on 06/17/2018 12:57 PM
--- NOTE | 2018-06-17 13:00 | Diagnostic Imaging Report ---
EXAM: CT Chest, abdomen, and pelvis WITH contrast INDICATION: Cough COMPARISON: 04/29/2018 CT, no report available TECHNIQUE: The Chest, abdomen, and pelvis was scanned utilizing a multidetector helical scanner after administration of IV contrast. Coronal and sagittal reformations were obtained. IV CONTRAST: 100 mL Isovue-370 COMPLICATIONS: None RADIATION DOSE: Total DLP: 1097 mGy*cm Estimated effective dose: (DLP x 0.015 x size factor) mSv CTDIvol has been reviewed. It is below the limits set by the Radiation Protocol Committee (RPC). Appropriate CT dose reduction techniques were utilized. FINDINGS: Chest: Lines and Tubes: None. Lower Neck: Visualized thyroid gland unremarkable. Heart and Great Vessels: The aorta and main pulmonary artery measure 31 and 27 mm. respectively. No pericardial effusion. While examination is not tailored for pulmonary artery evaluation, no central pulmonary embolus is identified. Moderate aortic and coronary artery vascular calcifications present. Lymph Nodes: Small scattered mediastinal and hilar lymph nodes, not distinctly enlarged by size criteria. Lungs: There is mild biapical scarring. No pneumothorax. Trachea and central bronchi are unremarkable. Previously demonstrated pleural effusions and dense areas of consolidation in the lung bases, asymmetric to the left, have improved. Residual scattered groundglass and nodular opacities are present, however, in the right middle lobe, lingula, and lung bases. Several nodular densities are present, the majority of which measure under 1 cm. Abdomen: Solid organs: The spleen is enlarged measuring 178 mm AP diameter. Mild decreased attenuation of the liver present with questionable mild nodularity of the liver. Adrenals, kidneys, splenules, and pancreas are unremarkable. Vascularity: Moderate aortic vascular calcifications with no aneurysm. Varices present, most notably subcutaneous tissues. Lymph nodes: No suspicious adenopathy. Bowel: Stomach decompressed, limiting evaluation. No small bowel obstructive changes. Pelvis: Urinary bladder: Unremarkable. Prostate: Mildly heterogeneous. Transverse diameter 63 mm. Bowel: No acute colonic findings. Appendix not inflamed. Osseous structures: Sternotomy wires. Degenerative changes spine. IMPRESSION: 1. Improvement of previously demonstrated pleural effusions and dense areas of consolidation in the lung bases. 2. Residual groundglass and nodular opacities in the right middle lobe, lingula, and lung bases. While findings may simply represent residua of prior infectious process, acute infectious/inflammatory process (to include atypical mycobacterium) and/or sequela of aspiration should be considered. 3. 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 4. Enlarged prostate. Clinical and laboratory correlation recommended. Signed by: Dr. Eliazar Gaitan MD on 06/17/2018 12:57 PM
== END ==
LOC: CT 15:31
PROVIDERS: ATTEND Internal Medicine Infectious Disease
DX: J15.211 Pneumonia due to Methicillin susceptible Staphylococcus aureus (principal); R59.9 Enlarged lymph nodes, unspecified
CPT/HCPCS: 36415; 71260; 74177; 82565; 84520; 96361; J7040; J7050; Q9967

== ENCOUNTER → 2019-01-04 | Outpatient (CLI) | payer MEDICARE ==
[~2019-01-04] MED LIST changes: -IOPAMIDOL 370 MG/ML 200 ML INFUS..BTL INJ ONE; -SODIUM CHLORIDE 0.9% 250ML 250 ML ONE; -SODIUM CHLORIDE 0.9% 500ML 500 ML ONE; -SODIUM CHLORIDE 0.9% 50ML 50 ML ONE
--- NOTE | 2019-01-04 18:16 | Diagnostic Imaging Report ---
EXAM: CHEST 2 VIEWS, PA and lateral DATE: 01/04/2019 Time stamp on exam: 3:24 PM INDICATION: COPD COMPARISON: 04/28/2018 FINDINGS: LINES/TUBES: Multiple sternal wires. LUNGS: Resolution of the previously identified lower lobe airspace opacities. PLEURA: No effusions or pneumothorax. HEART AND MEDIASTINUM: Mild cardiac enlargement. BONES AND SOFT TISSUES: Degenerative changes of the spine. IMPRESSION: No acute thoracic abnormality. Signed by: Dr. Colby Carreon DO on 01/04/2019 6:12 PM
== END ==
LOC: RAD 15:03
PROVIDERS: ATTEND Internal Medicine Pulmonary Disease
DX: J44.9 Chronic obstructive pulmonary disease, unspecified (principal)
CPT/HCPCS: 71046

== ENCOUNTER 2021-04-14 21:51 | Emergency (ER) | payer MEDICARE ==
[~2021-04-14] VITALS: Ht 340.4 cm; Wt 117.9 kg
[2021-04-15 01:01] VITALS: BP 120/53
== END 2021-04-15 01:02 | disposition home or self-care (01) ==
LOC: ER 22:30
DX: R50.9 Fever, unspecified (principal); R05 Cough; U07.1 COVID-19; Z99.81 Dependence on supplemental oxygen; I10 Essential (primary) hypertension; E11.9 Type 2 diabetes mellitus without complications; E78.5 Hyperlipidemia, unspecified; J44.9 Chronic obstructive pulmonary disease, unspecified; I50.9 Heart failure, unspecified; G47.30 Sleep apnea, unspecified; I25.2 Old myocardial infarction; Z95.1 Presence of aortocoronary bypass graft; Z96.653 Presence of artificial knee joint, bilateral
CPT/HCPCS: 71045; 99283; U0002

== ENCOUNTER 2021-08-12 18:44 | Inpatient (IN) | payer MEDICARE ==
[~2021-08-12] VITALS: Ht 165.1 cm; Wt 117.9 kg
[2021-08-12 19:08] LABS: BASOPHILS % 0.1 % (0.0-1.0); EOSINOPHILS % 0.1 % (0.0-6.0); HEMATOCRIT 41.1 % (38.2-49.6); LYMPHOCYTES # (AUTO) 0.7 (1.0-3.2); LYMPHOCYTES % 7.6 % (18.0-39.1); MEAN CORPUSCULAR HEMOGLOBIN 30.5 pg (28-32); MEAN CORPUSCULAR HGB CONC 31.6 g/dL (31-35); MEAN CORPUSCULAR VOLUME 96.5 fL (81-99); MONOCYTES # (AUTO) 0.6 (0.2-0.8); MONOCYTES % 6.7 % (4.4-11.3); NEUTROPHILS # (AUTO) 7.4 (2.1-6.9); NEUTROPHILS % 84.8 % (38.7-80.0); PLATELET COUNT 107 x10e3/uL (140-360); RED BLOOD COUNT 4.26 x10e6/uL (4.3-5.7); RED CELL DISTRIBUTION WIDTH 14.3 % (11.7-14.4)
[2021-08-12 19:16] LABS: INR 1.16; PROTHROMBIN TIME 15.8 seconds (11.9-14.5)
[2021-08-12 19:23] LABS: ALBUMIN 4.4 g/dL (3.5-5.0); ALBUMIN/GLOBULIN RATIO 1.3 (0.8-2.0); ANION GAP 19.4 mmol/L (8-16); CALCIUM 9.4 mg/dL (8.4-10.2); CREATININE, SERUM 1.75 mg/dL (0.72-1.25); POTASSIUM 3.4 mmol/L (3.5-5.1)
[2021-08-12 19:30] LABS: CREATINE KINASE MB 8.4 ng/mL (0-5.0)
[2021-08-12] MEDS ORDERED: DEXTROSE 50% SYRINGE 50 ML IV STA (19:39)
[2021-08-12] MEDS ORDERED: DEXTROSE 50% SYRINGE 50 ML IV ONE (19:43)
[2021-08-12] MEDS ORDERED: SERTRALINE HCL50 MG PO (19:44)
[2021-08-12] MEDS ORDERED: LOSARTAN POTAS100 MG PO (19:44)
[2021-08-12] MEDS ORDERED: FUROSEMIDE40 MG PO (19:44)
[2021-08-12] MEDS ORDERED: HYDROCHLOROTHIA25 MG PO (19:44)
[2021-08-12] MEDS ORDERED: SODIUM CHLORIDE 0.9% 1000ML 1,000 ML IV SCH (20:00)
[2021-08-12] MEDS ORDERED: DEXTROSE 5%/0.45% SOD CHL 1,000 ML IV ONE (20:30)
[2021-08-12] MEDS ORDERED: ACETAMINOPHEN 325 MG TAB PO STA (21:01)
[2021-08-12 21:06] LABS: CLARITY,URINE CLEAR (CLEAR); COLOR,URINE YELLOW (YELLOW); KETONES,URINE NEGATIVE (NEGATIVE); LEUKOCYTE ESTERASE ,URINE NEGATIVE (NEGATIVE); NITRITE,URINE NEGATIVE (NEGATIVE); PROTEIN,URINE DIPSTICK NEGATIVE (NEGATIVE)
[2021-08-12 21:07] LABS: URINE UROBILINOGEN 0.2 mg/dL (0.2 - 1)
[2021-08-12 21:08] LABS: BACTERIA,URINE FEW /HPF; EPITHELIAL CELLS,URINE FEW /LPF; RBC,URINE 0-5 /HPF (0-5); WBC,URINE (MAN) 0-5 /HPF (0-5)
[2021-08-12] MEDS ORDERED: GLUCAGON FOR INJ 1 MG VIAL IV STA (21:27)
[2021-08-12 21:29] VITALS: BP 172/86
[2021-08-12 21:30] LABS: CREATINE KINASE MB 7.1 ng/mL (0-5.0)
[2021-08-12] MEDS: DEXTROSE 50% SYRINGE 50 ML IV PRN ×2 (21:30→23:43)
[2021-08-12 23:45] VITALS: BP 172/86
[2021-08-12 23:53] VITALS: BP 153/83
[2021-08-13] VITALS (25 sets, daily range): BP systolic 105–167; BP diastolic 68–97
[2021-08-13] MEDS: DEXTROSE 50% SYRINGE 50 ML IV PRN ×3 (02:43→06:14)
[2021-08-13 05:55] LABS: ALBUMIN 3.9 g/dL (3.5-5.0); ALBUMIN/GLOBULIN RATIO 1.3 (0.8-2.0); ANION GAP 15.8 mmol/L (8-16); CALCIUM 8.8 mg/dL (8.4-10.2); CREATININE, SERUM 1.56 mg/dL (0.72-1.25)
[2021-08-13 06:10] LABS: POTASSIUM 2.8 mmol/L (3.5-5.1)
[2021-08-13 06:30] LABS: BASOPHILS % 0.4 % (0.0-1.0); EOSINOPHILS % 0.4 % (0.0-6.0); HEMATOCRIT 37.2 % (38.2-49.6); HEMOGLOBIN 12.1 g/dL (14.0-18.0); LYMPHOCYTES # (AUTO) 0.7 (1.0-3.2); LYMPHOCYTES % 13.2 % (18.0-39.1); MEAN CORPUSCULAR HEMOGLOBIN 30.9 pg (28-32); MEAN CORPUSCULAR HGB CONC 32.5 g/dL (31-35); MEAN CORPUSCULAR VOLUME 94.9 fL (81-99); MONOCYTES # (AUTO) 0.6 (0.2-0.8); NEUTROPHILS % 74.6 % (38.7-80.0); RED BLOOD COUNT 3.92 x10e6/uL (4.3-5.7)
[2021-08-13 06:35] LABS: PLATELET COUNT 74 x10e3/uL (140-360)
[2021-08-13 06:39] LABS: CREATINE KINASE MB 14.1 ng/mL (0-5.0)
[2021-08-13] MEDS: DEXTROSE 5%/0.9% SOD CHL 1,000 ML IV SCH ×2 (06:44→17:11)
[2021-08-13] MEDS ORDERED: POTASSIUM CHLORIDE 20 MEQ TAB CR PO ONE (07:00)
[2021-08-13] MEDS: LOSARTAN POTASSIUM 100 MG TAB PO SCH (08:05)
[2021-08-13] MEDS: METOPROLOL SUCCINATE 25 MG TAB XL PO SCH (08:06)
[2021-08-13] MEDS ORDERED: HYDRALAZINE HCL 25 MG TAB PO PRN (08:30)
[2021-08-13] MEDS ORDERED: ACETAMINOPHEN 325 MG TAB PO PRN (08:30)
[2021-08-13] MEDS ORDERED: ONDANSETRON HCL INJ 2MG/ML 2ML 2 MG/ML VIAL IV PRN (08:30)
[2021-08-13] MEDS ORDERED: POTASSIUM CHLORIDE 10MEQ EA PO ONE (09:30)
[2021-08-13] MEDS ORDERED: FUROSEMIDE INJ 10 MG/ML 4 ML VIAL IV ONE (12:00)
[2021-08-13 14:19] LABS: ANION GAP 15.6 mmol/L (8-16); CALCIUM 8.9 mg/dL (8.4-10.2); CREATININE, SERUM 1.49 mg/dL (0.72-1.25); POTASSIUM 3.6 mmol/L (3.5-5.1)
[2021-08-13] MEDS ORDERED: DEXTROSE 50% SYRINGE 50 ML IV PRN (14:45)
[2021-08-13 14:55] LABS: CREATINE KINASE MB 15.6 ng/mL (0-5.0)
[2021-08-13 15:29] LABS: FREE T4 (FREE THYROXINE) 0.92 ng/dL (0.8-1.8); THYROID STIMULATING HORMONE 0.828 uIU/mL (0.350-4.940)
[2021-08-13] MEDS: INSULIN LISPRO 100 UNIT/1 ML 3ML VIAL SQ SCH ×2 (17:11→20:33)
[2021-08-14] VITALS (14 sets, daily range): BP systolic 107–161; BP diastolic 57–89
[2021-08-14] MEDS: DEXTROSE 5%/0.9% SOD CHL 1,000 ML IV SCH (02:43)
[2021-08-14 05:04] LABS: BASOPHILS % 0.3 % (0.0-1.0); EOSINOPHILS # (AUTO) 0.1 (0.0-0.4); EOSINOPHILS % 1.8 % (0.0-6.0); HEMATOCRIT 36.5 % (38.2-49.6); HEMOGLOBIN 11.8 g/dL (14.0-18.0); LYMPHOCYTES # (AUTO) 0.5 (1.0-3.2); LYMPHOCYTES % 13.7 % (18.0-39.1); MEAN CORPUSCULAR HEMOGLOBIN 30.6 pg (28-32); MEAN CORPUSCULAR HGB CONC 32.3 g/dL (31-35); MEAN CORPUSCULAR VOLUME 94.6 fL (81-99); MONOCYTES # (AUTO) 0.4 (0.2-0.8); MONOCYTES % 9.2 % (4.4-11.3); NEUTROPHILS # (AUTO) 2.9 (2.1-6.9); NEUTROPHILS % 74.7 % (38.7-80.0); PLATELET COUNT 62 x10e3/uL (140-360); RED BLOOD COUNT 3.86 x10e6/uL (4.3-5.7); RED CELL DISTRIBUTION WIDTH 13.7 % (11.7-14.4)
[2021-08-14 05:31] LABS: ANION GAP 16.1 mmol/L (8-16); CALCIUM 9.3 mg/dL (8.4-10.2); CREATININE, SERUM 1.17 mg/dL (0.72-1.25); POTASSIUM 3.1 mmol/L (3.5-5.1)
[2021-08-14] MEDS: INSULIN LISPRO 100 UNIT/1 ML 3ML VIAL SQ SCH ×4 (07:09→20:36)
[2021-08-14] MEDS: LOSARTAN POTASSIUM 100 MG TAB PO SCH (08:20)
[2021-08-14] MEDS: METOPROLOL SUCCINATE 25 MG TAB XL PO SCH (08:20)
[2021-08-14] MEDS ORDERED: POTASSIUM CHLORIDE 20 MEQ TAB CR PO NR ×2 (09:15→13:00)
[2021-08-14] MEDS ORDERED: ONDANSETRON HCL 4 MG ORAL DISINTEGRATING TAB PO PRN (14:30)
[2021-08-15 02:02] VITALS: BP 107/57
[2021-08-15 05:02] LABS: BASOPHILS % 0.5 % (0.0-1.0); EOSINOPHILS # (AUTO) 0.1 (0.0-0.4); EOSINOPHILS % 2.4 % (0.0-6.0); HEMATOCRIT 34.6 % (38.2-49.6); LYMPHOCYTES # (AUTO) 0.6 (1.0-3.2); LYMPHOCYTES % 15.9 % (18.0-39.1); MEAN CORPUSCULAR HEMOGLOBIN 30.5 pg (28-32); MEAN CORPUSCULAR HGB CONC 31.8 g/dL (31-35); MEAN CORPUSCULAR VOLUME 95.8 fL (81-99); MONOCYTES # (AUTO) 0.4 (0.2-0.8); MONOCYTES % 9.7 % (4.4-11.3); NEUTROPHILS # (AUTO) 2.6 (2.1-6.9); NEUTROPHILS % 71.2 % (38.7-80.0); PLATELET COUNT 66 x10e3/uL (140-360); RED BLOOD COUNT 3.61 x10e6/uL (4.3-5.7); RED CELL DISTRIBUTION WIDTH 13.6 % (11.7-14.4)
[2021-08-15 05:16] LABS: ANION GAP 13.3 mmol/L (8-16); CREATININE, SERUM 1.11 mg/dL (0.72-1.25); POTASSIUM 3.3 mmol/L (3.5-5.1)
[2021-08-15 06:02] LABS: MAGNESIUM 1.7 MG/DL (1.3-2.1); PHOSPHORUS 2.5 MG/DL (2.3-4.7)
[2021-08-15 06:21] VITALS: BP 131/64
[2021-08-15 07:28] VITALS: BP 118/57
[2021-08-15] MEDS ORDERED: MAGNESIUM SULFATE 2GM/50ML IV ONE (08:15)
[2021-08-15] MEDS: LOSARTAN POTASSIUM 100 MG TAB PO SCH (08:44)
[2021-08-15] MEDS: METOPROLOL SUCCINATE 25 MG TAB XL PO SCH (08:45)
[2021-08-15] MEDS: INSULIN LISPRO 100 UNIT/1 ML 3ML VIAL SQ SCH ×2 (08:47→11:30)
[2021-08-15 08:52] VITALS: BP 118/57
[2021-08-15] MEDS ORDERED: MAGNESIUM SULFATE 2GM/50ML 50 ML IV ONE (09:00)
[2021-08-15] MEDS ORDERED: POTASSIUM CHLORIDE 10MEQ EA PO ONE (09:00)
[2021-08-15 11:25] VITALS: BP 145/66
== END 2021-08-15 15:19 | disposition home or self-care (01) | DRG 638 ==
LOC: ER 18:50 → ERHOLD 19:53 → MED/SURG 21:05 → ICU 23:02 → MED/SURG 08-14 10:10
PROVIDERS: ADMIT Internal Medicine; ATTEND Internal Medicine
DX: E11.649 Type 2 diabetes mellitus with hypoglycemia without coma (principal); Z68.41 Body mass index [BMI] 40.0-44.9, adult; M62.82 Rhabdomyolysis; N17.9 Acute kidney failure, unspecified; Y92.009 Unspecified place in unspecified non-institutional (private) residence as the place of occurrence of the external cause; Z79.84 Long term (current) use of oral hypoglycemic drugs; I10 Essential (primary) hypertension; E66.01 Morbid (severe) obesity due to excess calories; T38.3X5A Adverse effect of insulin and oral hypoglycemic [antidiabetic] drugs, initial encounter; E11.42 Type 2 diabetes mellitus with diabetic polyneuropathy; I25.10 Atherosclerotic heart disease of native coronary artery without angina pectoris; I25.2 Old myocardial infarction; Z95.1 Presence of aortocoronary bypass graft; E83.51 Hypocalcemia; E87.6 Hypokalemia; T50.2X5A Adverse effect of carbonic-anhydrase inhibitors, benzothiadiazides and other diuretics, initial encounter; E86.0 Dehydration; Z20.822 Contact with and (suspected) exposure to COVID-19
CPT/HCPCS: 36415; 70450; 71045; 72125; 80048; 80053; 81001; 82550; 82553; 82948; 83036; 83735; 83880; 84100; 84439; 84443; 84484; 84681; 85025; 85610; 93005; 93306; 94799; 96372; 99284; J1610; J1940; J3475; J7042; J7799; U0002

== ENCOUNTER → 2022-01-24 | Outpatient (CLI) | payer MEDICARE ==
[~2022-01-24] MED LIST changes: +FUROSEMIDE40 MG PO; +HYDROCHLOROTHIA25 MG PO; +LOSARTAN POTAS100 MG PO; +SERTRALINE HCL50 MG PO
== END ==
LOC: US 11:45
PROVIDERS: ATTEND Internal Medicine
DX: R19.7 Diarrhea, unspecified (principal)
CPT/HCPCS: 76700

== ENCOUNTER 2022-06-04 17:54 | Inpatient (IN) | payer MEDICARE ==
[~2022-06-04] VITALS: Ht 170.2 cm; Wt 117.9 kg
[2022-06-04] MEDS ORDERED: SODIUM CHLORIDE 0.9% 1000ML 1,000 ML IV STA (18:37)
[2022-06-04 18:56] LABS: BASOPHILS % 0.4 % (0.0-1.0); EOSINOPHILS # (AUTO) 0.2 (0.0-0.4); HEMATOCRIT 34.8 % (38.2-49.6); HEMOGLOBIN 10.3 g/dL (14.0-18.0); LYMPHOCYTES # (AUTO) 0.7 (1.0-3.2); LYMPHOCYTES % 8.8 % (18.0-39.1); MEAN CORPUSCULAR HEMOGLOBIN 27.5 pg (28-32); MEAN CORPUSCULAR HGB CONC 29.6 g/dL (31-35); MONOCYTES # (AUTO) 0.8 (0.2-0.8); NEUTROPHILS # (AUTO) 5.9 (2.1-6.9); NEUTROPHILS % 78.5 % (38.7-80.0); PLATELET COUNT 154 x10e3/uL (140-360); RED BLOOD COUNT 3.74 x10e6/uL (4.3-5.7); RED CELL DISTRIBUTION WIDTH 18.7 % (11.7-14.4)
[2022-06-04 19:16] LABS: ALBUMIN 2.7 g/dL (3.5-5.0); ALBUMIN/GLOBULIN RATIO 0.8 (0.8-2.0); ANION GAP 16.2 mmol/L (8-16); CALCIUM 8.7 mg/dL (8.4-10.2); CREATININE, SERUM 2.6 mg/dL (0.72-1.25); POTASSIUM 3.2 mmol/L (3.5-5.1)
[2022-06-04 19:25] LABS: CREATINE KINASE MB 3.9 ng/mL (0-5.0)
[2022-06-04] MEDS ORDERED: DEXTROSE 50% SYRINGE 50 ML IV STA (19:29)
[2022-06-04] MEDS ORDERED: ONDANSETRON HCL INJ 2MG/ML 2ML 2 MG/ML VIAL IV PRN ×2 (20:00→20:45)
[2022-06-04] MEDS ORDERED: Morphine 4mg INJECTION 4 MG/ML INJ IV PRN (20:00)
[2022-06-04] MEDS ORDERED: DEXTROSE 50% SYRINGE 50 ML IV PRN (20:30)
[2022-06-04] MEDS ORDERED: ZOLPIDEM TARTRATE 5 MG TAB PO PRN (20:30)
[2022-06-04] MEDS ORDERED: LORAZEPAM 1 MG TAB PO ONE (20:45)
[2022-06-04] MEDS ORDERED: SODIUM CHLORIDE 0.9% 1000ML 1,000 ML ONE (20:47)
[2022-06-04 20:50] LABS: CLARITY,URINE CLOUDY (CLEAR); COLOR,URINE AMBER (YELLOW); KETONES,URINE 1+ (NEGATIVE); LEUKOCYTE ESTERASE ,URINE NEGATIVE (NEGATIVE); NITRITE,URINE NEGATIVE (NEGATIVE); PROTEIN,URINE DIPSTICK >=300 (NEGATIVE); URINE UROBILINOGEN 1 mg/dL (0.2 - 1)
[2022-06-04] MEDS: SODIUM CHLORIDE 0.9% 1000ML 1,000 ML IV SCH (20:51)
[2022-06-04] MEDS: INSULIN REGULAR, HUMAN 100 UNIT/1 ML SQ SCH (21:00)
[2022-06-04 21:05] LABS: BACTERIA,URINE MODERATE /HPF; RBC,URINE 21-50 /HPF (0-5); WBC,URINE (MAN) 0-5 /HPF (0-5)
[2022-06-04] MEDS ORDERED: SODIUM CHLORIDE 0.9% 1000ML 1,000 ML IV ONE (21:30)
[2022-06-04 22:00] VITALS: BP 119/63
[2022-06-04 22:30] VITALS: BP 110/67
[2022-06-04 23:00] VITALS: BP 124/61
[2022-06-04] MEDS: METRONIDAZOLE 500MG/NS 100ML 100 ML IV SCH (23:23)
[2022-06-04] MEDS: VANCOMYCIN 250MG/5ML ORAL SOLN PO SCH (23:24)
[2022-06-04 23:30] VITALS: BP 131/78
[2022-06-05] VITALS (27 sets, daily range): BP systolic 90–149; BP diastolic 51–102
[2022-06-05] MEDS: SODIUM CHLORIDE 0.9% 1000ML 1,000 ML IV SCH ×3 (00:45→17:42)
[2022-06-05 04:48] LABS: CREATINE KINASE MB 2.6 ng/mL (0-5.0)
[2022-06-05] MEDS: METRONIDAZOLE 500MG/NS 100ML 100 ML IV SCH ×3 (06:22→22:55)
[2022-06-05] MEDS: VANCOMYCIN 250MG/5ML ORAL SOLN PO SCH ×3 (06:22→16:39)
[2022-06-05 07:02] LABS: BASOPHILS % 0.3 % (0.0-1.0); EOSINOPHILS % 0.4 % (0.0-6.0); HEMATOCRIT 35.2 % (38.2-49.6); HEMOGLOBIN 10.8 g/dL (14.0-18.0); LYMPHOCYTES # (AUTO) 0.5 (1.0-3.2); LYMPHOCYTES % 6.4 % (18.0-39.1); MEAN CORPUSCULAR HEMOGLOBIN 27.8 pg (28-32); MEAN CORPUSCULAR HGB CONC 30.7 g/dL (31-35); MEAN CORPUSCULAR VOLUME 90.5 fL (81-99); MONOCYTES # (AUTO) 0.6 (0.2-0.8); NEUTROPHILS # (AUTO) 6.6 (2.1-6.9); NEUTROPHILS % 84.6 % (38.7-80.0); PLATELET COUNT 132 x10e3/uL (140-360); RED BLOOD COUNT 3.89 x10e6/uL (4.3-5.7); RED CELL DISTRIBUTION WIDTH 18.4 % (11.7-14.4)
[2022-06-05 07:18] LABS: ALBUMIN 2.8 g/dL (3.5-5.0); ALBUMIN/GLOBULIN RATIO 0.8 (0.8-2.0); ANION GAP 15.3 mmol/L (8-16); CALCIUM 8.6 mg/dL (8.4-10.2); CREATININE, SERUM 2.26 mg/dL (0.72-1.25); POTASSIUM 3.3 mmol/L (3.5-5.1)
[2022-06-05] MEDS: INSULIN REGULAR, HUMAN 100 UNIT/1 ML SQ SCH (07:30)
[2022-06-05] MEDS: SERTRALINE HCL 50 MG TAB PO SCH (08:17)
[2022-06-05] MEDS ORDERED: FAMOTIDINE 20 MG/2 ML VIAL IV SCH (09:00)
[2022-06-05] MEDS: DEXTROSE 50% SYRINGE 50 ML IV PRN ×2 (11:24→21:07)
[2022-06-05] MEDS: INSULIN LISPRO 100 UNIT/1 ML 3ML VIAL SQ SCH ×3 (11:30→21:00)
[2022-06-05 12:51] LABS: CREATINE KINASE MB 2.3 ng/mL (0-5.0)
[2022-06-05 19:08] LABS: CREATINE KINASE MB 2.3 ng/mL (0-5.0)
[2022-06-05] MEDS: TAMSULOSIN HCL 0.4 MG CAP PO SCH (21:53)
[2022-06-06] VITALS (24 sets, daily range): BP systolic 94–153; BP diastolic 49–87
[2022-06-06] MEDS: VANCOMYCIN 250MG/5ML ORAL SOLN PO SCH ×5 (00:13→23:55)
[2022-06-06] MEDS: METRONIDAZOLE 500MG/NS 100ML 100 ML IV SCH ×3 (06:17→21:54)
[2022-06-06] MEDS: INSULIN LISPRO 100 UNIT/1 ML 3ML VIAL SQ SCH ×4 (07:30→20:55)
[2022-06-06 07:37] LABS: MAGNESIUM 1.7 MG/DL (1.3-2.1); PHOSPHORUS 2.9 MG/DL (2.3-4.7)
[2022-06-06 07:38] LABS: ANION GAP 15.1 mmol/L (8-16); CREATININE, SERUM 1.61 mg/dL (0.72-1.25); POTASSIUM 3.1 mmol/L (3.5-5.1)
[2022-06-06 07:57] LABS: THYROID STIMULATING HORMONE 5.193 uIU/mL (0.350-4.940)
[2022-06-06 08:07] LABS: BASOPHILS % 0.5 % (0.0-1.0); EOSINOPHILS # (AUTO) 0.1 (0.0-0.4); EOSINOPHILS % 2.1 % (0.0-6.0); HEMATOCRIT 33.7 % (38.2-49.6); HEMOGLOBIN 10.2 g/dL (14.0-18.0); LYMPHOCYTES # (AUTO) 0.4 (1.0-3.2); LYMPHOCYTES % 10.1 % (18.0-39.1); MEAN CORPUSCULAR HEMOGLOBIN 27.9 pg (28-32); MEAN CORPUSCULAR HGB CONC 30.3 g/dL (31-35); MEAN CORPUSCULAR VOLUME 92.1 fL (81-99); MONOCYTES # (AUTO) 0.5 (0.2-0.8); MONOCYTES % 10.6 % (4.4-11.3); NEUTROPHILS # (AUTO) 3.3 (2.1-6.9); NEUTROPHILS % 76.5 % (38.7-80.0); PLATELET COUNT 99 x10e3/uL (140-360); RED BLOOD COUNT 3.66 x10e6/uL (4.3-5.7); RED CELL DISTRIBUTION WIDTH 18.5 % (11.7-14.4)
[2022-06-06] MEDS ORDERED: FAMOTIDINE 20 MG/2 ML VIAL IV SCH (09:00)
[2022-06-06] MEDS: SERTRALINE HCL 50 MG TAB PO SCH (09:06)
[2022-06-06] MEDS: ASPIRIN 81 MG CHEW TAB PO SCH (09:06)
[2022-06-06] MEDS: FAMOTIDINE 20 MG/2 ML VIAL IV SCH (09:07)
[2022-06-06] MEDS ORDERED: POTASSIUM CHLORIDE 20 MEQ TAB CR PO ONE (09:15)
[2022-06-06] MEDS: MUPIROCIN 2% OINT 22 GM TUBE TOP SCH (09:29)
[2022-06-06] MEDS: COLLAGENASE 5 GM TUBE TP SCH (09:30)
[2022-06-06] MEDS: SODIUM CHLORIDE 0.9% 1000ML 1,000 ML IV SCH ×2 (11:50→23:45)
[2022-06-06] MEDS: TAMSULOSIN HCL 0.4 MG CAP PO SCH (20:32)
[2022-06-07] VITALS (18 sets, daily range): BP systolic 113–166; BP diastolic 57–87
[2022-06-07] MEDS: SODIUM CHLORIDE 0.9% 1000ML 1,000 ML IV SCH (04:00)
[2022-06-07] MEDS: VANCOMYCIN 250MG/5ML ORAL SOLN PO SCH (05:57)
[2022-06-07] MEDS: METRONIDAZOLE 500MG/NS 100ML 100 ML IV SCH ×3 (05:57→19:22)
[2022-06-07] MEDS: INSULIN LISPRO 100 UNIT/1 ML 3ML VIAL SQ SCH ×4 (07:24→21:00)
[2022-06-07 08:12] LABS: BASOPHILS % 0.3 % (0.0-1.0); EOSINOPHILS # (AUTO) 0.1 (0.0-0.4); EOSINOPHILS % 3.5 % (0.0-6.0); HEMATOCRIT 31.3 % (38.2-49.6); HEMOGLOBIN 9.4 g/dL (14.0-18.0); LYMPHOCYTES # (AUTO) 0.3 (1.0-3.2); LYMPHOCYTES % 11.2 % (18.0-39.1); MEAN CORPUSCULAR HEMOGLOBIN 27.8 pg (28-32); MEAN CORPUSCULAR VOLUME 92.6 fL (81-99); MONOCYTES # (AUTO) 0.3 (0.2-0.8); MONOCYTES % 10.5 % (4.4-11.3); NEUTROPHILS # (AUTO) 2.1 (2.1-6.9); NEUTROPHILS % 74.2 % (38.7-80.0); PLATELET COUNT 86 x10e3/uL (140-360); RED BLOOD COUNT 3.38 x10e6/uL (4.3-5.7); RED CELL DISTRIBUTION WIDTH 18.4 % (11.7-14.4)
[2022-06-07] MEDS: ASPIRIN 81 MG CHEW TAB PO SCH (08:26)
[2022-06-07] MEDS: FAMOTIDINE 20 MG/2 ML VIAL IV SCH (08:26)
[2022-06-07] MEDS: SERTRALINE HCL 50 MG TAB PO SCH (08:26)
[2022-06-07 08:38] LABS: ALBUMIN 2.4 g/dL (3.5-5.0); ALBUMIN/GLOBULIN RATIO 0.7 (0.8-2.0); ANION GAP 11.3 mmol/L (8-16); CALCIUM 7.4 mg/dL (8.4-10.2); CREATININE, SERUM 1.03 mg/dL (0.72-1.25); POTASSIUM 3.3 mmol/L (3.5-5.1)
[2022-06-07] MEDS: MUPIROCIN 2% OINT 22 GM TUBE TOP SCH (09:45)
[2022-06-07] MEDS: COLLAGENASE 5 GM TUBE TP SCH (09:47)
[2022-06-07 11:25] LABS: INR 1.43; PROTHROMBIN TIME 18.6 seconds (11.9-14.5)
[2022-06-07 11:26] LABS: PARTIAL THROMBOPLASTIN TIME 35.2 seconds (23.8-35.5)
[2022-06-07] MEDS ORDERED: ALBUMIN 25% 12.5GM 50ML 100 ML IV ONE ×2 (12:37→13:08)
[2022-06-07 15:07] LABS: BODY FLUID APPEARANCE CLOUDY; BODY FLUID COLOR RED; BODY FLUID TYPE PERITONEAL; RBC,BODY FLUID 29000 cells/uL; WBC,BODY FLUID 195 cells/uL
[2022-06-07 16:47] LABS: LYMPHOCYTES,BODY FLUID 21 %; MONO/MACROPHG,BODY FLUID 51 %; NEUTROPHILS,BODY FLUID 20 %; OTHER CELLS,BODY FLUID 8 %
[2022-06-07] MEDS: TAMSULOSIN HCL 0.4 MG CAP PO SCH (19:22)
[2022-06-08] VITALS (13 sets, daily range): BP systolic 106–135; BP diastolic 51–76
[2022-06-08] MEDS: METRONIDAZOLE 500MG/NS 100ML 100 ML IV SCH ×3 (05:36→20:29)
[2022-06-08 07:04] LABS: BASOPHILS % 0.7 % (0.0-1.0); EOSINOPHILS # (AUTO) 0.1 (0.0-0.4); EOSINOPHILS % 2.9 % (0.0-6.0); HEMATOCRIT 32.4 % (38.2-49.6); HEMOGLOBIN 10.1 g/dL (14.0-18.0); LYMPHOCYTES # (AUTO) 0.3 (1.0-3.2); LYMPHOCYTES % 10.2 % (18.0-39.1); MEAN CORPUSCULAR HEMOGLOBIN 28.1 pg (28-32); MEAN CORPUSCULAR HGB CONC 31.2 g/dL (31-35); MONOCYTES # (AUTO) 0.3 (0.2-0.8); MONOCYTES % 10.2 % (4.4-11.3); NEUTROPHILS # (AUTO) 2.1 (2.1-6.9); NEUTROPHILS % 75.6 % (38.7-80.0); PLATELET COUNT 83 x10e3/uL (140-360); RED CELL DISTRIBUTION WIDTH 18.4 % (11.7-14.4)
[2022-06-08 07:30] LABS: ALBUMIN 2.8 g/dL (3.5-5.0); ANION GAP 11.2 mmol/L (8-16); CALCIUM 8.1 mg/dL (8.4-10.2); CREATININE, SERUM 0.94 mg/dL (0.72-1.25); POTASSIUM 3.2 mmol/L (3.5-5.1)
[2022-06-08] MEDS: INSULIN LISPRO 100 UNIT/1 ML 3ML VIAL SQ SCH ×4 (07:30→20:31)
[2022-06-08] MEDS: COLLAGENASE 5 GM TUBE TP SCH (08:22)
[2022-06-08] MEDS: SERTRALINE HCL 50 MG TAB PO SCH (08:22)
[2022-06-08] MEDS: FAMOTIDINE 20 MG/2 ML VIAL IV SCH (08:22)
[2022-06-08] MEDS: MUPIROCIN 2% OINT 22 GM TUBE TOP SCH (08:22)
[2022-06-08] MEDS: FUROSEMIDE 40 MG TAB PO SCH (13:40)
[2022-06-08] MEDS: SPIRONOLACTONE 25 MG TAB PO SCH (13:40)
[2022-06-08] MEDS: TAMSULOSIN HCL 0.4 MG CAP PO SCH (20:29)
[2022-06-09] VITALS (13 sets, daily range): BP systolic 114–145; BP diastolic 54–76
[2022-06-09] MEDS: METRONIDAZOLE 500MG/NS 100ML 100 ML IV SCH ×3 (05:35→20:17)
[2022-06-09] MEDS: INSULIN LISPRO 100 UNIT/1 ML 3ML VIAL SQ SCH ×4 (07:30→21:00)
[2022-06-09] MEDS: FAMOTIDINE 20 MG/2 ML VIAL IV SCH (09:07)
[2022-06-09] MEDS: SPIRONOLACTONE 25 MG TAB PO SCH (09:07)
[2022-06-09] MEDS: SERTRALINE HCL 50 MG TAB PO SCH (09:07)
[2022-06-09] MEDS: FUROSEMIDE 40 MG TAB PO SCH (09:07)
[2022-06-09] MEDS: MUPIROCIN 2% OINT 22 GM TUBE TOP SCH (09:08)
[2022-06-09] MEDS: COLLAGENASE 5 GM TUBE TP SCH (09:09)
[2022-06-09 10:56] LABS: ANION GAP 14.3 mmol/L (8-16); CALCIUM 8.3 mg/dL (8.4-10.2); CREATININE, SERUM 0.86 mg/dL (0.72-1.25); POTASSIUM 3.3 mmol/L (3.5-5.1)
[2022-06-09] MEDS ORDERED: POTASSIUM CHLORIDE 20 MEQ TAB CR PO NR (11:15)
[2022-06-09] MEDS: METOPROLOL SUCCINATE 25 MG TAB XL PO SCH (11:46)
[2022-06-09] MEDS: TAMSULOSIN HCL 0.4 MG CAP PO SCH (20:17)
[2022-06-10] VITALS (8 sets, daily range): BP systolic 101–131; BP diastolic 55–67
[2022-06-10 05:00] LABS: BASOPHILS % 0.5 % (0.0-1.0); EOSINOPHILS # (AUTO) 0.1 (0.0-0.4); EOSINOPHILS % 1.3 % (0.0-6.0); HEMATOCRIT 35.4 % (38.2-49.6); HEMOGLOBIN 10.6 g/dL (14.0-18.0); LYMPHOCYTES # (AUTO) 0.3 (1.0-3.2); LYMPHOCYTES % 7.8 % (18.0-39.1); MEAN CORPUSCULAR HEMOGLOBIN 28.3 pg (28-32); MEAN CORPUSCULAR HGB CONC 29.9 g/dL (31-35); MONOCYTES # (AUTO) 0.3 (0.2-0.8); MONOCYTES % 8.8 % (4.4-11.3); NEUTROPHILS # (AUTO) 3.1 (2.1-6.9); NEUTROPHILS % 81.3 % (38.7-80.0); RED BLOOD COUNT 3.75 x10e6/uL (4.3-5.7); RED CELL DISTRIBUTION WIDTH 17.8 % (11.7-14.4)
[2022-06-10 05:08] LABS: MEAN CORPUSCULAR VOLUME 94.4 fL (81-99)
[2022-06-10 05:09] LABS: PLATELET COUNT 84 x10e3/uL (140-360)
[2022-06-10 05:21] LABS: ANION GAP 13.5 mmol/L (8-16); CALCIUM 8.6 mg/dL (8.4-10.2); CREATININE, SERUM 0.84 mg/dL (0.72-1.25); POTASSIUM 3.5 mmol/L (3.5-5.1)
[2022-06-10] MEDS: METRONIDAZOLE 500MG/NS 100ML 100 ML IV SCH ×3 (05:27→21:02)
[2022-06-10] MEDS: INSULIN LISPRO 100 UNIT/1 ML 3ML VIAL SQ SCH ×4 (07:30→21:00)
[2022-06-10] MEDS: FUROSEMIDE 40 MG TAB PO SCH (08:51)
[2022-06-10] MEDS: METOPROLOL SUCCINATE 25 MG TAB XL PO SCH (08:51)
[2022-06-10] MEDS: SERTRALINE HCL 50 MG TAB PO SCH (08:51)
[2022-06-10] MEDS: SPIRONOLACTONE 25 MG TAB PO SCH (08:52)
[2022-06-10] MEDS: FAMOTIDINE 20 MG/2 ML VIAL IV SCH (08:52)
[2022-06-10] MEDS: MUPIROCIN 2% OINT 22 GM TUBE TOP SCH (08:53)
[2022-06-10] MEDS: COLLAGENASE 5 GM TUBE TP SCH (08:53)
[2022-06-10] MEDS ORDERED: SODIUM CHLORIDE 0.9% 500ML 500 ML ONE (09:14)
[2022-06-10] MEDS: NEOMYCIN/POLYMYXIN/BACITRACIN 15 GM TUBE TOP SCH (17:00)
[2022-06-10] MEDS: TAMSULOSIN HCL 0.4 MG CAP PO SCH (21:02)
[2022-06-11] VITALS (8 sets, daily range): BP systolic 90–130; BP diastolic 44–92
[2022-06-11] MEDS: METRONIDAZOLE 500MG/NS 100ML 100 ML IV SCH ×3 (06:23→22:20)
[2022-06-11] MEDS: INSULIN LISPRO 100 UNIT/1 ML 3ML VIAL SQ SCH ×4 (07:30→21:00)
[2022-06-11] MEDS: METOPROLOL SUCCINATE 25 MG TAB XL PO SCH (09:00)
[2022-06-11] MEDS: FAMOTIDINE 20 MG/2 ML VIAL IV SCH (09:23)
[2022-06-11] MEDS: SERTRALINE HCL 50 MG TAB PO SCH (09:23)
[2022-06-11] MEDS: MUPIROCIN 2% OINT 22 GM TUBE TOP SCH (09:24)
[2022-06-11] MEDS: NEOMYCIN/POLYMYXIN/BACITRACIN 15 GM TUBE TOP SCH ×2 (09:24→16:30)
[2022-06-11] MEDS: SPIRONOLACTONE 25 MG TAB PO SCH (09:24)
[2022-06-11] MEDS: FUROSEMIDE 40 MG TAB PO SCH (09:24)
[2022-06-11] MEDS: COLLAGENASE 5 GM TUBE TP SCH (09:25)
[2022-06-11] MEDS: TAMSULOSIN HCL 0.4 MG CAP PO SCH (20:05)
[2022-06-12] VITALS (7 sets, daily range): BP systolic 98–140; BP diastolic 46–73
[2022-06-12] MEDS: METRONIDAZOLE 500MG/NS 100ML 100 ML IV SCH ×3 (06:09→22:31)
[2022-06-12] MEDS: INSULIN LISPRO 100 UNIT/1 ML 3ML VIAL SQ SCH ×4 (07:30→21:00)
[2022-06-12] MEDS: FUROSEMIDE 40 MG TAB PO SCH (08:42)
[2022-06-12] MEDS: SPIRONOLACTONE 25 MG TAB PO SCH (08:42)
[2022-06-12] MEDS: FAMOTIDINE 20 MG/2 ML VIAL IV SCH (08:43)
[2022-06-12] MEDS: SERTRALINE HCL 50 MG TAB PO SCH (08:43)
[2022-06-12] MEDS: METOPROLOL SUCCINATE 25 MG TAB XL PO SCH (08:43)
[2022-06-12] MEDS: MUPIROCIN 2% OINT 22 GM TUBE TOP SCH (08:44)
[2022-06-12] MEDS: NEOMYCIN/POLYMYXIN/BACITRACIN 15 GM TUBE TOP SCH ×2 (08:44→16:56)
[2022-06-12] MEDS: COLLAGENASE 5 GM TUBE TP SCH (08:44)
[2022-06-12] MEDS ORDERED: POTASSIUM CHLORIDE 20 MEQ TAB CR PO NR (09:15)
[2022-06-12] MEDS ORDERED: FUROSEMIDE INJ 10 MG/ML 4 ML VIAL IV NR (09:15)
[2022-06-12] MEDS: TAMSULOSIN HCL 0.4 MG CAP PO SCH (21:22)
[2022-06-13] VITALS (7 sets, daily range): BP systolic 95–118; BP diastolic 59–94
[2022-06-13] MEDS: METRONIDAZOLE 500MG/NS 100ML 100 ML IV SCH ×3 (05:32→22:53)
[2022-06-13] MEDS: INSULIN LISPRO 100 UNIT/1 ML 3ML VIAL SQ SCH ×4 (07:30→20:24)
[2022-06-13] MEDS: NEOMYCIN/POLYMYXIN/BACITRACIN 15 GM TUBE TOP SCH ×2 (09:00→18:17)
[2022-06-13] MEDS: METOPROLOL SUCCINATE 25 MG TAB XL PO SCH (09:00)
[2022-06-13 09:27] LABS: BASOPHILS % 0.6 % (0.0-1.0); EOSINOPHILS # (AUTO) 0.1 (0.0-0.4); HEMATOCRIT 32.9 % (38.2-49.6); HEMOGLOBIN 10.1 g/dL (14.0-18.0); LYMPHOCYTES # (AUTO) 0.5 (1.0-3.2); LYMPHOCYTES % 14.8 % (18.0-39.1); MEAN CORPUSCULAR HEMOGLOBIN 27.7 pg (28-32); MEAN CORPUSCULAR HGB CONC 30.7 g/dL (31-35); MEAN CORPUSCULAR VOLUME 90.1 fL (81-99); MONOCYTES # (AUTO) 0.4 (0.2-0.8); NEUTROPHILS # (AUTO) 2.2 (2.1-6.9); NEUTROPHILS % 68.3 % (38.7-80.0); PLATELET COUNT 90 x10e3/uL (140-360); RED BLOOD COUNT 3.65 x10e6/uL (4.3-5.7); RED CELL DISTRIBUTION WIDTH 18.5 % (11.7-14.4)
[2022-06-13 10:01] LABS: ANION GAP 13.3 mmol/L (8-16); CALCIUM 8.3 mg/dL (8.4-10.2); CREATININE, SERUM 0.81 mg/dL (0.72-1.25); POTASSIUM 3.3 mmol/L (3.5-5.1)
[2022-06-13] MEDS: FAMOTIDINE 20 MG/2 ML VIAL IV SCH (10:41)
[2022-06-13] MEDS: SERTRALINE HCL 50 MG TAB PO SCH (10:42)
[2022-06-13] MEDS: COLLAGENASE 5 GM TUBE TP SCH (10:42)
[2022-06-13] MEDS: FUROSEMIDE 40 MG TAB PO SCH (10:42)
[2022-06-13] MEDS: SPIRONOLACTONE 25 MG TAB PO SCH (10:45)
[2022-06-13] MEDS ORDERED: ONDANSETRON HCL 4 MG ORAL DISINTEGRATING TAB PO PRN (11:15)
[2022-06-13] MEDS: TAMSULOSIN HCL 0.4 MG CAP PO SCH (20:21)
[2022-06-14] VITALS (8 sets, daily range): BP systolic 93–116; BP diastolic 61–78
[2022-06-14] MEDS: METRONIDAZOLE 500MG/NS 100ML 100 ML IV SCH (05:15)
[2022-06-14 06:03] LABS: BASOPHILS % 0.8 % (0.0-1.0); EOSINOPHILS # (AUTO) 0.1 (0.0-0.4); EOSINOPHILS % 2.7 % (0.0-6.0); HEMATOCRIT 34.6 % (38.2-49.6); HEMOGLOBIN 10.9 g/dL (14.0-18.0); LYMPHOCYTES # (AUTO) 0.7 (1.0-3.2); MEAN CORPUSCULAR HEMOGLOBIN 28.1 pg (28-32); MEAN CORPUSCULAR HGB CONC 31.5 g/dL (31-35); MEAN CORPUSCULAR VOLUME 89.2 fL (81-99); MONOCYTES # (AUTO) 0.5 (0.2-0.8); MONOCYTES % 10.9 % (4.4-11.3); NEUTROPHILS # (AUTO) 3.4 (2.1-6.9); NEUTROPHILS % 71.2 % (38.7-80.0); PLATELET COUNT 107 x10e3/uL (140-360); RED BLOOD COUNT 3.88 x10e6/uL (4.3-5.7); RED CELL DISTRIBUTION WIDTH 18.7 % (11.7-14.4)
[2022-06-14 06:41] LABS: ANION GAP 14.6 mmol/L (8-16); CALCIUM 8.4 mg/dL (8.4-10.2); CREATININE, SERUM 1.03 mg/dL (0.72-1.25); POTASSIUM 3.6 mmol/L (3.5-5.1)
[2022-06-14] MEDS: INSULIN LISPRO 100 UNIT/1 ML 3ML VIAL SQ SCH ×4 (07:30→21:00)
[2022-06-14] MEDS: METOPROLOL SUCCINATE 25 MG TAB XL PO SCH (09:00)
[2022-06-14] MEDS: COLLAGENASE 5 GM TUBE TP SCH (09:00)
[2022-06-14] MEDS: FUROSEMIDE 40 MG TAB PO SCH (10:00)
[2022-06-14] MEDS: SERTRALINE HCL 50 MG TAB PO SCH (10:05)
[2022-06-14] MEDS: FAMOTIDINE 20 MG TAB PO SCH (10:06)
[2022-06-14] MEDS: SPIRONOLACTONE 25 MG TAB PO SCH (10:06)
[2022-06-14] MEDS ORDERED: POTASSIUM CHLORIDE 20 MEQ TAB CR PO ONE (11:15)
[2022-06-14] MEDS: MIDODRINE HCL 5 MG TABLET PO SCH ×2 (12:50→17:00)
[2022-06-14] MEDS: FUROSEMIDE INJ 10 MG/ML 4 ML VIAL IV SCH ×2 (12:50→21:10)
[2022-06-14] MEDS: NEOMYCIN/POLYMYXIN/BACITRACIN 15 GM TUBE TOP SCH ×2 (17:56→17:58)
[2022-06-14] MEDS: TAMSULOSIN HCL 0.4 MG CAP PO SCH (21:10)
[2022-06-15] VITALS: BP 119/55
[2022-06-15] MEDS: INSULIN LISPRO 100 UNIT/1 ML 3ML VIAL SQ SCH ×4 (07:30→21:00)
[2022-06-15 07:58] VITALS: BP 113/91
[2022-06-15 08:00] VITALS: BP 113/91
[2022-06-15] MEDS: SERTRALINE HCL 50 MG TAB PO SCH (09:42)
[2022-06-15] MEDS: FUROSEMIDE INJ 10 MG/ML 4 ML VIAL IV SCH ×2 (09:42→20:59)
[2022-06-15] MEDS: MIDODRINE HCL 5 MG TABLET PO SCH ×3 (09:43→16:38)
[2022-06-15] MEDS: SPIRONOLACTONE 25 MG TAB PO SCH (09:43)
[2022-06-15] MEDS: METOPROLOL SUCCINATE 25 MG TAB XL PO SCH (09:43)
[2022-06-15] MEDS: FAMOTIDINE 20 MG TAB PO SCH ×2 (09:44→16:38)
[2022-06-15] MEDS: NEOMYCIN/POLYMYXIN/BACITRACIN 15 GM TUBE TOP SCH ×2 (09:48→17:00)
[2022-06-15 11:59] VITALS: BP 105/75
[2022-06-15 16:12] VITALS: BP 102/64
[2022-06-15 20:00] VITALS: BP 113/62
[2022-06-15] MEDS: TAMSULOSIN HCL 0.4 MG CAP PO SCH (20:59)
[2022-06-16] VITALS (8 sets, daily range): BP systolic 92–102; BP diastolic 52–63
[2022-06-16 05:31] LABS: BASOPHILS % 0.6 % (0.0-1.0); EOSINOPHILS # (AUTO) 0.1 (0.0-0.4); EOSINOPHILS % 2.4 % (0.0-6.0); HEMATOCRIT 37.1 % (38.2-49.6); HEMOGLOBIN 11.2 g/dL (14.0-18.0); LYMPHOCYTES # (AUTO) 0.6 (1.0-3.2); LYMPHOCYTES % 11.6 % (18.0-39.1); MEAN CORPUSCULAR HEMOGLOBIN 28.4 pg (28-32); MEAN CORPUSCULAR HGB CONC 30.2 g/dL (31-35); MEAN CORPUSCULAR VOLUME 94.2 fL (81-99); MONOCYTES # (AUTO) 0.5 (0.2-0.8); MONOCYTES % 9.2 % (4.4-11.3); NEUTROPHILS # (AUTO) 3.7 (2.1-6.9); PLATELET COUNT 91 x10e3/uL (140-360); RED BLOOD COUNT 3.94 x10e6/uL (4.3-5.7); RED CELL DISTRIBUTION WIDTH 19.2 % (11.7-14.4)
[2022-06-16 05:49] LABS: ALBUMIN 2.6 g/dL (3.5-5.0); ALBUMIN/GLOBULIN RATIO 0.7 (0.8-2.0); ANION GAP 16.9 mmol/L (8-16); CALCIUM 8.6 mg/dL (8.4-10.2); CREATININE, SERUM 1.3 mg/dL (0.72-1.25); POTASSIUM 3.9 mmol/L (3.5-5.1)
[2022-06-16] MEDS: INSULIN LISPRO 100 UNIT/1 ML 3ML VIAL SQ SCH ×4 (07:30→19:59)
[2022-06-16] MEDS: FUROSEMIDE INJ 10 MG/ML 4 ML VIAL IV SCH ×2 (08:46→20:52)
[2022-06-16] MEDS: METOPROLOL SUCCINATE 25 MG TAB XL PO SCH (08:46)
[2022-06-16] MEDS: SPIRONOLACTONE 25 MG TAB PO SCH (08:47)
[2022-06-16] MEDS: SERTRALINE HCL 50 MG TAB PO SCH (08:47)
[2022-06-16] MEDS: MIDODRINE HCL 5 MG TABLET PO SCH ×3 (08:47→17:18)
[2022-06-16] MEDS: NEOMYCIN/POLYMYXIN/BACITRACIN 15 GM TUBE TOP SCH ×2 (09:00→17:19)
[2022-06-16] MEDS: TAMSULOSIN HCL 0.4 MG CAP PO SCH (20:52)
[2022-06-17] VITALS (7 sets, daily range): BP systolic 91–167; BP diastolic 56–99
[2022-06-17] MEDS: INSULIN LISPRO 100 UNIT/1 ML 3ML VIAL SQ SCH ×4 (07:30→21:00)
[2022-06-17] MEDS: MIDODRINE HCL 5 MG TABLET PO SCH ×3 (08:47→15:49)
[2022-06-17] MEDS: FAMOTIDINE 20 MG TAB PO SCH (08:47)
[2022-06-17] MEDS: FUROSEMIDE INJ 10 MG/ML 4 ML VIAL IV SCH (08:48)
[2022-06-17] MEDS: SERTRALINE HCL 50 MG TAB PO SCH (08:49)
[2022-06-17] MEDS: METOPROLOL SUCCINATE 25 MG TAB XL PO SCH (08:50)
[2022-06-17] MEDS: SPIRONOLACTONE 25 MG TAB PO SCH (08:51)
[2022-06-17] MEDS: FUROSEMIDE 40 MG TAB PO SCH ×2 (08:55→11:43)
[2022-06-17] MEDS: NEOMYCIN/POLYMYXIN/BACITRACIN 15 GM TUBE TOP SCH (08:56)
[2022-06-17] MEDS ORDERED: ALBUMIN 25% 12.5GM 50ML 300 ML IV ONE (14:35)
[2022-06-17] MEDS ORDERED: ALBUMIN 25% 12.5GM 50ML 50 ML IV ONE (14:37)
[2022-06-17] MEDS: TAMSULOSIN HCL 0.4 MG CAP PO SCH (21:17)
[2022-06-18] VITALS (7 sets, daily range): BP systolic 91–105; BP diastolic 49–77
[2022-06-18 05:56] LABS: BASOPHILS % 0.6 % (0.0-1.0); EOSINOPHILS # (AUTO) 0.1 (0.0-0.4); EOSINOPHILS % 3.1 % (0.0-6.0); HEMATOCRIT 34.7 % (38.2-49.6); HEMOGLOBIN 10.4 g/dL (14.0-18.0); LYMPHOCYTES # (AUTO) 0.4 (1.0-3.2); LYMPHOCYTES % 11.4 % (18.0-39.1); MEAN CORPUSCULAR HEMOGLOBIN 28.1 pg (28-32); MEAN CORPUSCULAR VOLUME 93.8 fL (81-99); MONOCYTES # (AUTO) 0.3 (0.2-0.8); MONOCYTES % 9.4 % (4.4-11.3); NEUTROPHILS # (AUTO) 2.7 (2.1-6.9); NEUTROPHILS % 75.2 % (38.7-80.0); PLATELET COUNT 96 x10e3/uL (140-360); RED CELL DISTRIBUTION WIDTH 18.8 % (11.7-14.4)
[2022-06-18 06:16] LABS: ANION GAP 12.9 mmol/L (8-16); CALCIUM 8.4 mg/dL (8.4-10.2); CREATININE, SERUM 1.43 mg/dL (0.72-1.25); POTASSIUM 3.9 mmol/L (3.5-5.1)
[2022-06-18] MEDS: INSULIN LISPRO 100 UNIT/1 ML 3ML VIAL SQ SCH ×4 (07:15→20:02)
[2022-06-18] MEDS: FAMOTIDINE 20 MG TAB PO SCH (08:37)
[2022-06-18] MEDS: MIDODRINE HCL 5 MG TABLET PO SCH ×3 (08:37→16:20)
[2022-06-18] MEDS: FUROSEMIDE 40 MG TAB PO SCH ×2 (08:37→12:37)
[2022-06-18] MEDS: SPIRONOLACTONE 25 MG TAB PO SCH (08:37)
[2022-06-18] MEDS: SERTRALINE HCL 50 MG TAB PO SCH (08:38)
[2022-06-18] MEDS: METOPROLOL SUCCINATE 25 MG TAB XL PO SCH (08:38)
[2022-06-18] MEDS: TAMSULOSIN HCL 0.4 MG CAP PO SCH (20:01)
[2022-06-19] VITALS (10 sets, daily range): BP systolic 94–111; BP diastolic 56–70
[2022-06-19] MEDS: INSULIN LISPRO 100 UNIT/1 ML 3ML VIAL SQ SCH ×3 (07:30→21:00)
[2022-06-19] MEDS: FUROSEMIDE 40 MG TAB PO SCH ×2 (09:13→12:24)
[2022-06-19] MEDS: SPIRONOLACTONE 25 MG TAB PO SCH (09:13)
[2022-06-19] MEDS: FAMOTIDINE 20 MG TAB PO SCH (09:13)
[2022-06-19] MEDS: MIDODRINE HCL 5 MG TABLET PO SCH ×3 (09:13→17:45)
[2022-06-19] MEDS: METOPROLOL SUCCINATE 25 MG TAB XL PO SCH (09:14)
[2022-06-19] MEDS: SERTRALINE HCL 50 MG TAB PO SCH (09:14)
[2022-06-19 09:51] LABS: BASOPHILS # (AUTO) 0.1 (0.0-0.1); BASOPHILS % 0.8 % (0.0-1.0); EOSINOPHILS # (AUTO) 0.1 (0.0-0.4); EOSINOPHILS % 1.8 % (0.0-6.0); HEMATOCRIT 35.8 % (38.2-49.6); LYMPHOCYTES # (AUTO) 0.5 (1.0-3.2); LYMPHOCYTES % 8.2 % (18.0-39.1); MEAN CORPUSCULAR HEMOGLOBIN 28.6 pg (28-32); MEAN CORPUSCULAR HGB CONC 30.7 g/dL (31-35); MONOCYTES # (AUTO) 0.5 (0.2-0.8); MONOCYTES % 7.8 % (4.4-11.3); NEUTROPHILS % 80.9 % (38.7-80.0); PLATELET COUNT 113 x10e3/uL (140-360); RED BLOOD COUNT 3.85 x10e6/uL (4.3-5.7)
[2022-06-19 10:12] LABS: ANION GAP 16.9 mmol/L (8-16); CALCIUM 8.8 mg/dL (8.4-10.2); CREATININE, SERUM 1.49 mg/dL (0.72-1.25); POTASSIUM 3.9 mmol/L (3.5-5.1)
[2022-06-19] MEDS: TAMSULOSIN HCL 0.4 MG CAP PO SCH (21:28)
[2022-06-20 05:22] VITALS: BP 97/56
[2022-06-20] MEDS: INSULIN LISPRO 100 UNIT/1 ML 3ML VIAL SQ SCH (07:30)
[2022-06-20 07:41] VITALS: BP 114/61
[2022-06-20] MEDS: SPIRONOLACTONE 25 MG TAB PO SCH (09:45)
[2022-06-20] MEDS: FUROSEMIDE 40 MG TAB PO SCH ×2 (09:45→12:31)
[2022-06-20] MEDS: MIDODRINE HCL 5 MG TABLET PO SCH ×2 (09:45→12:31)
[2022-06-20] MEDS: FAMOTIDINE 20 MG TAB PO SCH (09:45)
[2022-06-20] MEDS: SERTRALINE HCL 50 MG TAB PO SCH (09:45)
[2022-06-20] MEDS: METOPROLOL SUCCINATE 25 MG TAB XL PO SCH (09:45)
[2022-06-20 09:49] VITALS: BP 114/61
[2022-06-20 11:31] VITALS: BP 106/62
[2022-06-20 15:24] VITALS: BP 103/64
[2022-06-21] MEDS ORDERED: ASPIRIN 81 MG ENTERIC COATED PO SCH (09:00)
== END 2022-06-20 16:39 | disposition home health service (06) | DRG 871 ==
LOC: ER 18:10 → ERHOLD 19:53 → ICU 21:45 → MED/SURG2 06-10 14:55
PROVIDERS: ADMIT Internal Medicine; ATTEND Internal Medicine
PROC: 0T9B70Z Drainage of Bladder with Drainage Device, Via Natural or Artificial Opening (ICD-10-PCS; principal; 2022-06-04)
PROC: 3E03329 Introduction of Other Anti-infective into Peripheral Vein, Percutaneous Approach (ICD-10-PCS; 2022-06-04)
PROC: 5A09357 Assistance with Respiratory Ventilation, Less than 24 Consecutive Hours, Continuous Positive Airway Pressure (ICD-10-PCS; 2022-06-07)
PROC: 0W9G3ZZ Drainage of Peritoneal Cavity, Percutaneous Approach (ICD-10-PCS; 2022-06-07)
DX: A41.9 Sepsis, unspecified organism (principal); G92.9 Unspecified toxic encephalopathy; N17.0 Acute kidney failure with tubular necrosis; R65.21 Severe sepsis with septic shock; I50.33 Acute on chronic diastolic (congestive) heart failure; J18.9 Pneumonia, unspecified organism; I13.0 Hypertensive heart and chronic kidney disease with heart failure and stage 1 through stage 4 chronic kidney disease, or unspecified chronic kidney disease; Z68.41 Body mass index [BMI] 40.0-44.9, adult; N39.0 Urinary tract infection, site not specified; N13.8 Other obstructive and reflux uropathy; R18.8 Other ascites; K76.6 Portal hypertension; E87.20 Acidosis, unspecified; E11.649 Type 2 diabetes mellitus with hypoglycemia without coma; D69.6 Thrombocytopenia, unspecified; R62.7 Adult failure to thrive; E11.22 Type 2 diabetes mellitus with diabetic chronic kidney disease; K74.60 Unspecified cirrhosis of liver; Z99.81 Dependence on supplemental oxygen; R09.02 Hypoxemia; R77.8 Other specified abnormalities of plasma proteins; J44.9 Chronic obstructive pulmonary disease, unspecified; E78.5 Hyperlipidemia, unspecified; E66.9 Obesity, unspecified; N40.1 Benign prostatic hyperplasia with lower urinary tract symptoms; R33.8 Other retention of urine; I25.10 Atherosclerotic heart disease of native coronary artery without angina pectoris; N18.30 Chronic kidney disease, stage 3 unspecified; E87.6 Hypokalemia; G47.30 Sleep apnea, unspecified; K52.9 Noninfective gastroenteritis and colitis, unspecified; N50.0 Atrophy of testis; I77.9 Disorder of arteries and arterioles, unspecified; K82.8 Other specified diseases of gallbladder; R31.0 Gross hematuria; U09.9 Post COVID-19 condition, unspecified; Z87.891 Personal history of nicotine dependence; Z82.49 Family history of ischemic heart disease and other diseases of the circulatory system; Z95.1 Presence of aortocoronary bypass graft; Z96.653 Presence of artificial knee joint, bilateral; Z91.81 History of falling; I25.2 Old myocardial infarction; Z79.84 Long term (current) use of oral hypoglycemic drugs; Z20.822 Contact with and (suspected) exposure to COVID-19; F01.50 Vascular dementia, unspecified severity, without behavioral disturbance, psychotic disturbance, mood disturbance, and anxiety
CPT/HCPCS: 36415; 49083; 51700; 71045; 71250; 74176; 74470; 78227; 80048; 80053; 81001; 82140; 82533; 82550; 82553; 82607; 82746; 82948; 83036; 83540; 83605; 83615; 83690; 83735; 83880; 84100; 84157; 84443; 84466; 84484; 85025; 85610; 85730; 87040; 87070; 87086; 87205; 89051; 93005; 93306; 93970; 94799; 99251; 99284; A9537; C1729; J1940; J2543; J7030; J7040; J7799